=== PATIENT | female | born 1930 | race Caucasian/White ===

== ENCOUNTER 2018-02-26 13:36 | Inpatient (IN) | payer MEDICARE, OTHER ==
[2018-02-26] VITALS (24 sets, daily range): BP systolic 61–126; BP diastolic 43–67; PULSE 56–136; RESP 16–41; TEMP 97.5–98.7; O2SAT 96–99
[~2018-02-26] VITALS: Ht 160 cm; Wt 59.4 kg
[~2018-02-26 13:36] MED LIST: LOTR5CAP2 PO; ROSU5 PO
[2018-02-26] MEDS ORDERED: PANTOPRAZOLE INJ 80 MG in SODIUM CHLORIDE 0.9% INJ 35 ML IV ONE (14:24)
[2018-02-26] MEDS ORDERED: PANTOPRAZOLE INJ 80 MG in SODIUM CHLORIDE 0.9% INJ 100 ML IV SCH (14:24)
[2018-02-26] MEDS ORDERED: SODIUM CHLOR 0.9% 1000 ML INJ 1,000 ML IV SCH (14:24)
[2018-02-26] MEDS ORDERED: SODIUM CHLORIDE 0.9% FLUSH 10 ML FLUSH IVF PRN (14:30)
[2018-02-26] MEDS ORDERED: ONDANSETRON HCL 4 MG/2 ML VIAL IVP ONE (14:30)
[2018-02-26 14:36] LABS: AUTOMATED NEUTROPHIL # 7.2 TH/MM3 (1.8-7.7); BASOPHIL # 0.2 TH/MM3 (0-0.2); BASOPHIL % 2.1 % (0.0-2.0); EOSINOPHIL % 0.1 % (0.0-4.0); HEMATOCRIT 49.5 % (35.0-46.0); HEMOGLOBIN 16.4 GM/DL (11.6-15.3); LYMPH % 19.4 % (9.0-44.0); LYMPHOCYTE # 1.9 TH/MM3 (1.0-4.8); MEAN CELL VOLUME 90.7 FL (80.0-100.0); MEAN CORPUSCULAR HEMOGLOBIN 30.1 PG (27.0-34.0); MEAN CORPUSCULAR HGB CONC 33.2 % (32.0-36.0); MEAN PLATELET VOLUME 8.3 FL (7.0-11.0); MONO % 7.1 % (0.0-8.0); MONOCYTE # 0.7 TH/MM3 (0-0.9); NEUT % 71.3 % (16.0-70.0); PLATELET COUNT 343 TH/MM3 (150-450); RED BLOOD COUNT 5.46 MIL/MM3 (4.00-5.30); RED CELL DISTRIBUTION WIDTH 13.5 % (11.6-17.2)
[2018-02-26 14:45] LABS: CHLORIDE 100 MEQ/L (98-107); SODIUM (NA) 136 MEQ/L (136-145)
[2018-02-26 14:49] LABS: ALBUMIN 3.5 GM/DL (3.4-5.0); BICARBONATE 27.2 MEQ/L (21.0-32.0); BLOOD UREA NITROGEN 32 MG/DL (7-18); GLUCOSE,RANDOM 163 MG/DL (74-106)
[2018-02-26 14:50] LABS: INTERNATIONAL NORMALIZED RATIO 1.1 RATIO; PROTHROMBIN TIME - PATIENT 10.7 SEC (9.8-11.6)
[2018-02-26 14:51] LABS: ALT (GPT) 29 U/L (10-53)
[2018-02-26 14:52] LABS: AST (GOT) 25 U/L (15-37); GLOMERULAR FILTRATION RATE 36 ML/MIN (>89)
[2018-02-26 14:53] LABS: TOTAL BILIRUBIN ADULT 0.5 MG/DL (0.2-1.0)
[2018-02-26 14:54] LABS: ALKALINE PHOSPHATASE 86 U/L (45-117)
--- NOTE | 2018-02-26 15:34 | RADRPT ---
EXAM DATE/TIME: 02/26/2018 14:55 [facility] COMPARISON: No previous studies available for comparison. INDICATIONS : Syncopal episode today MEDICAL HISTORY : None. SURGICAL HISTORY : None. ENCOUNTER: Initial ACUITY: 1 day PAIN SCORE: 0/10 LOCATION: Bilateral chest FINDINGS: A single view of the chest demonstrates the lungs to be symmetrically aerated without evidence of mas s, infiltrate or effusion. Minimal basilar atelectasis. Mild cardiomegaly. CONCLUSION: 1. Mild cardiomegaly. Taras Solorzano MD on February 26, 2018 at 15:30 Board Certified Radiologist. This report was verified electronically.
[2018-02-26] MEDS ORDERED: cefTRIAXone INJ 1,000 MG in SODIUM CHLORIDE 0.9% INJ 100 ML IV ONE (16:00)
[2018-02-26] MEDS ORDERED: SODIUM CHLOR 0.9% 250 ML INJ 250 ML IV ONE (16:00)
[2018-02-26] MEDS ORDERED: VALS320T4 PO (16:02)
--- NOTE | 2018-02-26 16:23 | PD ---
HPI Chief Complaint: Syncope/Near-Syncope Time Seen by Provider: 14:24 Travel History International Travel<30 days: No Contact w/Intl Traveler<30days: No Traveled to known affect area: No History of Present Illness HPI 87-year-old female arrives to the ER via EMS. She was in a restaurant and lost consciousness for about 1 minute. The patient recalls a loss of consciousness and waking up from it. No chest pain or shortness of breath. The patient evidently had a bowel movement with black stool in the waiting room the ER. She has otherwise been in her normal state of good health. She has no abdominal pain. No vomiting. The onset of the syncope was sudden. No known history of GI bleed. No use of anticoagulants. PFSH Past Medical History Cancer: Yes (OVARIAN) High Cholesterol: Yes Chemotherapy: Yes Dementia: Yes Past Surgical History Abdominal Surgery: Yes (EXP LAP X 2) Appendectomy: Yes Eye Surgery: Yes (BILATERAL CATARACT SURGERY) Gynecologic Surgery: Yes Hysterectomy: Yes Joint Replacement: Yes (RIGHT ROTATOR CUFF REPAIR) Tonsillectomy: Yes Other Surgery: Yes (COLON RESECTION) Social History Alcohol Use: No Tobacco Use: No (QUIT) Substance Use: No Allergies-Medications (Allergen,Severity, Reaction): Coded Allergies: codeine (Unverified Allergy, Mild, 02/26/18) Reported Meds & Prescriptions Reported Meds & Active Scripts Active Reported Valsartan-Hydrochlorothiazide 320-12.5 Mg Tab 1 Tab PO DAILY Review of Systems Except as stated in HPI: all other systems reviewed are Neg General / Constitutional: No: Fever Gastrointestinal: Positive: Nausea, Vomiting, Abdominal Pain Physical Exam Narrative GENERAL: 87-year-old female pleasant well-nourished well-developed Vital Signs Date Time Temp Pulse Resp B/P (MAP) Pulse Ox O2 Delivery O2 Flow Rate FiO2 02/26/18 14:44 16 96 Room Air 02/26/18 14:30 97.5 92 16 67/50 (56) 96 02/26/18 14:15 16 96 Room Air rectal: black stool present. no BRB. guaiac positive. SKIN: Warm and dry. HEAD: Atraumatic. Normocephalic. EYES: Pupils equal and round. No scleral icterus. No injection or drainage. ENT: No nasal bleeding or discharge. Mucous membranes pink and moist. NECK: Trachea midline. No JVD. CARDIOVASCULAR: Irregular. Rate variable from 60s to 120s. RESPIRATORY: No accessory muscle use. Clear to auscultation. Breath sounds equal bilaterally. GASTROINTESTINAL: Abdomen soft, non-tender, nondistended. Hepatic and splenic margins not palpable. MUSCULOSKELETAL: Extremities without clubbing, cyanosis, or edema. No obvious deformities. NEUROLOGICAL: Awake and alert. No obvious cranial nerve deficits. Motor grossly within normal limits. Five out of 5 muscle strength in the arms and legs. Normal speech. PSYCHIATRIC: Appropriate mood and affect; insight and judgment normal. Data Data Last Documented VS Vital Signs Date Time Temp Pulse Resp B/P (MAP) Pulse Ox O2 Delivery O2 Flow Rate FiO2 02/26/18 17:20 98.0 61 16 92/53 96 02/26/18 17:00 21 02/26/18 16:35 Room Air Orders Orders Complete Blood Count With Diff (02/26/18 14:24) Comprehensive Metabolic Panel (02/26/18 14:24) Lipase (02/26/18 14:24) Prothrombin Time / Inr (Pt) (02/26/18 14:24) Act Partial Throm Time (Ptt) (02/26/18 14:24) Urinalysis - C+S If Indicated (02/26/18 14:24) Type And Screen (02/26/18 14:24) Ecg Monitoring (02/26/18 14:24) Iv Access Insert/Monitor (02/26/18 14:24) Oximetry (02/26/18 14:24) Ondansetron Inj (Zofran Inj) (02/26/18 14:30) Sodium Chlor 0.9% 1000 Ml Inj (Ns 1000 M (02/26/18 14:24) Sodium Chloride 0.9% Flush (Ns Flush) (02/26/18 14:30) Sodium Chloride 0.9... W/Pantoprazole In (02/26/18 14:24) Sodium Chloride 0.9... W/Pantoprazole In (02/26/18 14:24) Chest, Single Ap (02/26/18 ) Troponin I (02/26/18 14:52) Electrocardiogram (02/26/18 14:18) Blood Product Administration (02/26/18 15:48) Sodium Chlor 0.9% 250 Ml Inj (Ns 250 Ml (02/26/18 16:00) Ceftriaxone Inj (Rocephin Inj) (02/26/18 16:00) Ct Abd/Pel W/O Iv Contrast (02/26/18 15:49) Ventilation & Perfusion Scan (02/26/18 ) Red Blood Cells (Rbc) (02/26/18 14:20) Admit Order (Ed Use Only) (02/26/18 ) Farm Assistant / Telemetry [id number].[id number] (02/26/18 17:44) Vital Signs (Adult) Q4H (02/26/18 17:44) Diet Npo (02/26/18 Dinner) Activity Bed Rest (02/26/18 17:44) Notify Dr: Other (02/26/18 17:44) Magnesium (Mg) (02/26/18 14:20) Phosphorus (Po4) (02/26/18 14:20) Thyroid Stimulating Hormone (02/26/18 14:20) Labs Laboratory Tests Test 02/26/18 14:20 White Blood Count 10.0 TH/MM3 Red Blood Count 5.46 MIL/MM3 Hemoglobin 16.4 GM/DL Hematocrit 49.5 % Mean Corpuscular Volume 90.7 FL Mean Corpuscular Hemoglobin 30.1 PG Mean Corpuscular Hemoglobin Concent 33.2 % Red Cell Distribution Width 13.5 % Platelet Count 343 TH/MM3 Mean Platelet Volume 8.3 FL Neutrophils (%) (Auto) 71.3 % Lymphocytes (%) (Auto) 19.4 % Monocytes (%) (Auto) 7.1 % Eosinophils (%) (Auto) 0.1 % Basophils (%) (Auto) 2.1 % Neutrophils # (Auto) 7.2 TH/MM3 Lymphocytes # (Auto) 1.9 TH/MM3 Monocytes # (Auto) 0.7 TH/MM3 Eosinophils # (Auto) 0.0 TH/MM3 Basophils # (Auto) 0.2 TH/MM3 CBC Comment DIFF FINAL Differential Comment Prothrombin Time 10.7 SEC Prothromb Time International Ratio 1.1 RATIO Activated Partial Thromboplast Time 24.7 SEC Blood Urea Nitrogen 32 MG/DL Creatinine 1.40 MG/DL Random Glucose 163 MG/DL Total Protein 7.0 GM/DL Albumin 3.5 GM/DL Calcium Level 9.0 MG/DL Phosphorus Level 4.3 MG/DL Magnesium Level 2.3 MG/DL Alkaline Phosphatase 86 U/L Aspartate Amino Transf (AST/SGOT) 25 U/L Alanine Aminotransferase (ALT/SGPT) 29 U/L Total Bilirubin 0.5 MG/DL Sodium Level 136 MEQ/L Potassium Level 3.1 MEQ/L Chloride Level 100 MEQ/L Carbon Dioxide Level 27.2 MEQ/L Anion Gap 9 MEQ/L Estimat Glomerular Filtration Rate 36 ML/MIN Troponin I 0.07 NG/ML Lipase 405 U/L Thyroid Stimulating Hormone 3rd Gen 2.830 uIU/ML MDM Medical Decision Making Medical Screen Exam Complete: Yes Emergency Medical Condition: Yes Medical Record Reviewed: Yes Differential Diagnosis Arrhythmia, pneumothorax, anemia, GI bleed Narrative Course CBC & BMP Diagram 02/26/18 14:20 Total Protein 7.0, Albumin 3.5, Calcium Level 9.0, Alkaline Phosphatase 86, Aspartate Amino Transf (AST/SGOT) 25, Alanine Aminotransferase (ALT/SGPT) 29, Total Bilirubin 0.5 Troponin 0.07 Lipase 405 INR 1.1 EKG shows A. fib with RVR and a rate in the 130s Last Impressions Chest X-Ray 02/26/18 0000 Signed Impressions: Service Date/Time: Monday, February 26, 2018 14:55 - CONCLUSION: 1. Mild cardiomegaly. Taras Solorzano MD Patient has received a liter of saline. 2 units PRBCs ordered. The stool is guaiac positive. Concern for syncope due to GI bleed/volume loss. VQ scan ordered because the GFR is 30. The patient although hemodynamically unstable has clinically appeared well with warm dry skin and normal mentation and answering questions in detail. At 5:09 PM approximately 2 hours and 40 minutes following arrival the patient has remained clinically stable. The blood pressure is 95/47. Pt will be admitted to the ICU here in PO. D/w Dr Irving d/w Dr Richter GI intervention likely for AM Last Impressions Abdomen/Pelvis CT 02/26/18 1549 Signed Impressions: Service Date/Time: Monday, February 26, 2018 16:00 - CONCLUSION: 1. Mildly dilated loops of distal small bowel. There is air in the colon. Cannot exclude a partial small bowel obstruction. No acute bony abnormalities. 2. Small pericardial effusion. Taras Solorzano MD Lung Scan-VQ Nuclear Medicine 02/26/18 0000 Signed Impressions: Service Date/Time: Monday, February 26, 2018 17:23 - CONCLUSION: Low probability for pulmonary embolus. Jamie Chopra MD Head CT 02/26/18 0000 Signed Impressions: Service Date/Time: Monday, February 26, 2018 18:57 - CONCLUSION: No acute disease. Jamie Chopra MD Chest X-Ray 02/26/18 0000 Signed Impressions: Service Date/Time: Monday, February 26, 2018 14:55 - CONCLUSION: 1. Mild cardiomegaly. Taras Solorzano MD Bowel obstruction considered unlikely Critical Care Narrative Aggregate critical care time was 35 minutes. Time to perform other separately billable procedures was not included in the critical care time. My time did not include minutes spent treating any other patients simultaneously or on activities that did not directly contribute to the patient's treatment. The services I provided to this patient were to treat and/or prevent clinically significant deterioration that could result in: Cardiopulmonary arrest, hypovolemic shock I provided critical care services requiring my management, as noted below: Chart data review, documentation time, medication orders and management, vital sign assessments/reviewing monitor data, ordering and reviewing lab tests, ordering and interpreting/reviewing x-rays and diagnostic studies, care of the patient and discussion of the patient with the admitting physicians. 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
--- NOTE | 2018-02-26 16:37 | RADRPT ---
EXAM DATE/TIME: 02/26/2018 16:00 [facility] COMPARISON: No previous studies available for comparison. INDICATIONS : Abdominal pain. ORAL CONTRAST: No oral contrast ingested. RADIATION DOSE: 6.26 CTDIvol (mGy) MEDICAL HISTORY : Dementia. Hypercholesterolemia. Carcinoma, ovarian.Chemo SURGICAL HISTORY : Hysterectomy. Tonsillectomy.Bowel resection, exp lap, ortho ENCOUNTER: Initial ACUITY: 1 day PAIN SCALE: 5/10 LOCATION: diffuse TECHNIQUE: Volumetric scanning of the abdomen and pelvis was performed. Using automated exposure control and ad justment of the mA and/or kV according to patient size, radiation dose was kept as low as reasonably achievable to obtain optimal diagnostic quality images. DICOM format image data is available electro nically for review and comparison. FINDINGS: Lung bases are clear except for minimal dependent atelectasis. Small pericardial effusion. No acute findings in the liver, spleen, adrenals or pancreas. The liver m easures about 20 cm in length. Previous cholecystectomy. There is a 7.5 cm cyst upper pole left kidne y. Right kidney unremarkable. Numerous surgical clips in the lower abdomen and pelvis with mildly dilated loops of small bowel dist ally. No free air or free fluid. Small hiatal hernia. Moderate to advanced degenerative change of the spine. CONCLUSION: 1. Mildly dilated loops of distal small bowel. There is air in the colon. Cannot exclude a partial sm all bowel obstruction. No acute bony abnormalities. 2. Small pericardial effusion. Taras Solorzano MD on February 26, 2018 at 16:23 Board Certified Radiologist. This report was verified electronically.
--- NOTE | 2018-02-26 17:52 | HHI.HP ---
[facility] Service Critical Care Medicine Primary Care Physician Murray Okeefe M.D. Admission Diagnosis Syncope; GI Bleed; Pancreatitis; AFib RVR; Elevated Trop; HypoK Diagnosis: (1) Hypotension Diagnosis: Principal (2) GI bleed Diagnosis: Principal (3) Elevated troponin Diagnosis: Principal (4) Partial small bowel obstruction Diagnosis: Principal (5) Syncope Diagnosis: Principal (6) Atrial fibrillation Diagnosis: Principal (7) Acute renal failure superimposed on stage 2 chronic kidney disease Diagnosis: Principal Chief Complaint: Syncope Travel History International Travel<30 Days: No Contact w/Intl Traveler <30 Da: No Traveled to Known Affected Are: No Sepsis Criteria SIRS Criteria (2 or more): Heart rate over 90 History of Present Illness 87-year-old female with known history of hypertension, hyperlipidemia , diabetes who was brought to the hospital because of a syncopal episode. Patient was in a normal state of health when she was out to lunch with her family. They just walked into the restaurant and ordered her dinner they sat down and was sitting at the table for approximately 30 minutes and her daughter- in-law noticed that she was falling forward into the right. She caught her and Her from falling forward completely she did not hit her head or fall to the ground. She looked at her and noticed that her eyes rolled in the back of her head. Patient was lowered to the ground and that is when her son came out of the restroom and noticed his mother unconscious on the ground. There was no tonic-clonic movements, no extremity shaking. No loss of bladder control, however did have complete loss of bowel. They indicate that the patient lost consciousness for approximately 1 minute and when she was awake she became more alert. There is no significant episode of confusion. EMS was called and on initial presentation her blood pressure was 152/108. The patient did not want to be transferred here by ambulance so the family brought her to the emergency department. When the patient came into the emergency department she had significant tachycardia with a heart rate in 140s with atrial fibrillation RVR with low blood pressure 92/53. Patient was found to have been soiled with stool that was black in color which immediately turned positive Hemoccult. It was suspected that the patient may be in hypovolemic shock from acute GI bleed. Nursing staff and ER physician indicated that patient had the look and smell of acute GI bleed. Stat blood was released and patient was transfused 1 unit of packed red blood cells. Patient was started on immediate IV fluid bolus with initial improvement of her blood pressure, however when the fluid was complete her blood pressure dropped again. Blood pressure is doing much better at this time after infusion of packed red blood cell. Further workup indicated multiple other etiologies with CT scan showing partial small bowel obstruction, equivocal troponin elevation, acute renal failure superimposed on chronic kidney disease stage II, elevated lipase level. Due to patient's clinical condition with possible acute hypovolemic shock secondary to GI bleed patient will be admitted to critical care to the ICU for closer monitoring. Review of Systems Constitutional: DENIES: Diaphoretic episodes, Fatigue, Fever, Chills, Dizziness Eyes: DENIES: Blurred vision, Diplopia, Eye inflammation, Eye pain, Vision loss , Double Vision Ears, nose, mouth, throat: DENIES: Tinnitus, Hearing loss, Vertigo, Nasal discharge, Oral lesions, Throat pain, Hoarseness, Ear Pain, Running Nose, Sinus Pain Respiratory: DENIES: Apneas, Cough, Snoring, Wheezing, Hemoptysis, Sputum production, Shortness of breath Cardiovascular: COMPLAINS OF: Syncope, DENIES: Chest pain, Palpitations, Dyspnea on Exertion, Lower Extremity Edema, Orthopnea Gastrointestinal: DENIES: Abdominal pain, Black stools, Bloody stools, Constipation, Diarrhea, Nausea, Vomiting, Difficulty Swallowing, Anorexia Psychiatric: DENIES: Anxiety, Confusion, Mood changes, Depression Past Family Social History Allergies: Coded Allergies: codeine (Unverified Allergy, Mild, 02/26/18) Past Medical History Hypertension Hyperlipidemia History of ovarian cancer status post surgery and chemotherapy Chronic kidney disease stage II Dementia Past Surgical History Hysterectomy Cataract surgery Bladder sling surgery Surgery for lacerated bowel Reported Medications Reported Meds & Active Scripts Active Reported Valsartan-Hydrochlorothiazide 320-12.5 Mg Tab 1 Tab PO DAILY Family History Reviewed and significant for mother at 88 from heart disease, congestive heart failure, father was at age 76 with history of heart disease and stroke Social History Patient quit smoking 20 years ago, prior to that she smoked 2 pack of cigarettes daily. Drinks alcohol rarely Physical Exam Vital Signs Vital Signs Date Time Temp Pulse Resp B/P (MAP) Pulse Ox O2 Delivery O2 Flow Rate FiO2 02/26/18 17:20 98.0 61 16 92/53 96 02/26/18 17:05 98.7 61 16 94/47 97 02/26/18 16:50 97.9 94 16 105/53 97 02/26/18 16:35 62 16 98/55 (69) 97 Room Air 02/26/18 15:50 112 16 104/53 (70) 96 Room Air 02/26/18 15:46 88 16 61/43 (49) 97 Room Air 02/26/18 15:40 88 16 76/52 (60) 97 Room Air 02/26/18 15:25 100 16 104/55 (71) 99 Room Air 02/26/18 15:10 98 16 101/55 (70) 98 Room Air 02/26/18 14:55 128 16 111/56 (74) 98 02/26/18 14:44 16 96 Room Air 02/26/18 14:40 136 16 108/54 (72) 97 Room Air 02/26/18 14:35 135 16 80/56 (64) 98 Room Air 02/26/18 14:30 97.5 92 16 67/50 (56) 96 02/26/18 14:15 16 96 Room Air Physical Exam GENERAL: Well-developed, frail and cachectic, in no acute distress. alert and orientated. Patient appears to be pale HEENT: Head is normocephalic without any lesions or masses noted. Facial features are symmetric. Eyes: Pupils equal round reactive to light. Extraocular muscles are intact. Conjunctivae is pale. Oropharyngeal: Pharynx without any erythema edema. Tongue is midline without deviation. Buccal mucosa is moist without any masses or lesions NECK: Supple without any masses. Trachea midline no deviation. No JVD, no bruits are appreciated CARDIAC: Regular rhythm, regular rate. S1/S2 are heard. No murmurs gallops or rubs. LUNGS: Clear to auscultation bilaterally. No wheeze, rhonchi or rales. No use of accessory muscles on inspiration or expiration. ABDOMEN: Soft, nontender. Nondistended. Bowel sounds heard in all 4 quadrants. No organomegaly or masses. Negative rebound, negative guarding EXTREMITIES: No edema, pulses are equal bilaterally. No cyanosis or clubbing. Geographical franco of the hand are diminished. Patient has decreased capillary refill NEUROLOGY: Mood and affect appear appropriate. Cranial nerves II through XII grossly intact. Muscle strength 5/5 in upper and lower extremities bilaterally. Deep tendon reflexes are 2+ in upper and lower extremities bilaterally. Laboratory Laboratory Tests Test 02/26/18 14:20 White Blood Count 10.0 Red Blood Count 5.46 Hemoglobin 16.4 Hematocrit 49.5 Mean Corpuscular Volume 90.7 Mean Corpuscular Hemoglobin 30.1 Mean Corpuscular Hemoglobin Concent 33.2 Red Cell Distribution Width 13.5 Platelet Count 343 Mean Platelet Volume 8.3 Neutrophils (%) (Auto) 71.3 Lymphocytes (%) (Auto) 19.4 Monocytes (%) (Auto) 7.1 Eosinophils (%) (Auto) 0.1 Basophils (%) (Auto) 2.1 Neutrophils # (Auto) 7.2 Lymphocytes # (Auto) 1.9 Monocytes # (Auto) 0.7 Eosinophils # (Auto) 0.0 Basophils # (Auto) 0.2 CBC Comment DIFF FINAL Differential Comment Prothrombin Time 10.7 Prothromb Time International Ratio 1.1 Activated Partial Thromboplast Time 24.7 Blood Urea Nitrogen 32 Creatinine 1.40 Random Glucose 163 Total Protein 7.0 Albumin 3.5 Calcium Level 9.0 Alkaline Phosphatase 86 Aspartate Amino Transf (AST/SGOT) 25 Alanine Aminotransferase (ALT/SGPT) 29 Total Bilirubin 0.5 Sodium Level 136 Potassium Level 3.1 Chloride Level 100 Carbon Dioxide Level 27.2 Anion Gap 9 Estimat Glomerular Filtration Rate 36 Troponin I 0.07 Lipase 405 Result Diagram: 02/26/18 1420 02/26/18 1420 Imaging Last Impressions Abdomen/Pelvis CT 02/26/18 1549 Signed Impressions: Service Date/Time: Monday, February 26, 2018 16:00 - CONCLUSION: 1. Mildly dilated loops of distal small bowel. There is air in the colon. Cannot exclude a partial small bowel obstruction. No acute bony abnormalities. 2. Small pericardial effusion. Taras Solorzano MD Chest X-Ray 02/26/18 0000 Signed Impressions: Service Date/Time: Monday, February 26, 2018 14:55 - CONCLUSION: 1. Mild cardiomegaly. Taras Solorzano MD Septic Shock Reassessment Septic shock perfusion: reassessment completed Caprini VTE Risk Assessment Caprini VTE Risk Assessment: Mod/High Risk (score >= 2) Caprini Risk Assessment Model Point Value = 1 Point Value = 2 Point Value = 3 Point Value = 5 Age 41-60 Minor surgery BMI > 25 kg/m2 Swollen legs Varicose veins or History of unexplained or recurrent spontaneous Oral contraceptives or hormone replacement Sepsis (< 1 month) Serious lung disease, including pneumonia (< 1 month) Abnormal pulmonary function Acute myocardial infarction Congestive heart failure (< 1 month) History of inflammatory bowel disease Medical patient at bed rest Age 61-74 Arthroscopic surgery Major open surgery (> 45 min) Laparoscopic surgery (> 45 min) Malignancy Confined to bed (> 72 hours) Immobilizing plaster cast Central venous access Age >= 75 History of VTE Family history of VTE Factor V Leiden Prothrombin [id number] Lupus anticoagulant Anticardiolipin antibodies Elevated serum homocysteine Heparin-induced thrombocytopenia Other congenital or acquired thrombophilia Stroke (< 1 month) Elective arthroplasty Hip, pelvis, or leg fracture Acute spinal cord injury (< 1 month) Prophylaxis Regimen Total Risk Factor Score Risk Level Prophylaxis Regimen 0-1 Low Early ambulation 2 Moderate Order ONE of the following: *Sequential Compression Device (SCD) *Heparin 5000 units SQ BID 3-4 Higher Order ONE of the following medications: *Heparin 5000 units SQ TID *Enoxaparin/Lovenox 40 mg SQ daily (WT < 150 kg, CrCl > 30 mL/min) *Enoxaparin/Lovenox 30 mg SQ daily (WT < 150 kg, CrCl > 10-29 mL/min) *Enoxaparin/Lovenox 30 mg SQ BID (WT < 150 kg, CrCl > 30 mL/min) AND/OR *Sequential Compression Device (SCD) 5 or more Highest Order ONE of the following medications: *Heparin 5000 units SQ TID (Preferred with Epidurals) *Enoxaparin/Lovenox 40 mg SQ daily (WT < 150 kg, CrCl > 30 mL/min) *Enoxaparin/Lovenox 30 mg SQ daily (WT < 150 kg, CrCl > 10-29 mL/min) *Enoxaparin/Lovenox 30 mg SQ BID (WT < 150 kg, CrCl > 30 mL/min) AND *Sequential Compression Device (SCD) Assessment and Plan Problem List: (1) Hypotension ICD Code: I95.9 - Hypotension, unspecified Status: Acute (2) GI bleed ICD Code: K92.2 - Gastrointestinal hemorrhage, unspecified Status: Acute (3) Elevated troponin ICD Code: R74.8 - Abnormal levels of other serum enzymes (4) Atrial fibrillation ICD Code: I48.91 - Unspecified atrial fibrillation Status: Acute (5) Syncope ICD Code: R55 - Syncope and collapse Status: Acute (6) Partial small bowel obstruction ICD Code: K56.600 - Partial intestinal obstruction, unspecified as to cause (7) Acute renal failure superimposed on stage 2 chronic kidney disease ICD Code: N17.9 - Acute kidney failure, unspecified; N18.2 - Chronic kidney disease, stage 2 (mild) Assessment and Plan NEUROLOGY Syncope Dementia Continue monitor neurological function Obtain CT scan of the brain to rule out any acute abnormality Obtain carotid ultrasound CARDIOLOGY Hypotension Elevated troponin New onset atrial fibrillation with RVR Hypertension Hyperlipidemia Status post 1 L IV fluid bolus Continue monitor blood pressure keep map greater than 65 Continue to trend cardiac enzymes to rule out acute coronary event Unable to use aspirin secondary to acute GI bleed, unable to use beta angel, Cardizem secondary to hypotension CHADS/VASC 2, however unable to fully anticoagulate secondary to acute GI bleed Obtain echocardiogram PULMONOLOGY History of tobacco use VQ scan was performed which indicated low probability for pulmonary emboli O2 sat mentation maintain O2 sats greater than 92% Duo nebs as needed GASTROENTEROLOGY Acute melanic GI bleed Continue to monitor hemoglobin and hematocrit every 6 hours Status post transfusion 1 unit of packed red blood cells Start Protonix drip Consult GI, will contact GI to inform them of patient The patient will remain n.p.o. for possible urgent endoscopy, if not will anticipate EGD tomorrow morning RENAL Acute renal failure superimposed on chronic kidney disease stage II Could be secondary to GI bleed, mild dehydration, Continue IV fluid Monitor renal function Replete electrolytes as needed INFECTIOUS DISEASE No active signs of infection at this time Patient has been given Rocephin 1 g IV 1 We will check blood cultures, await urinalysis We will hold off on any antibiotics until infectious source can be found HEMATOLOGY Continue monitor hemoglobin hematocrit, transfuse if hemoglobin below 8.0 ENDOCRINOLOGY Monitor glucoses start Accu-Cheks if needed Check TSH PROPHYLAXIS GI protection with Protonix IV DVT prevention with sequential compression devices, avoid chemical prophylaxis secondary to acute GI bleed LINES Peripheral IVs CODE STATUS Full code Critical care time 75 minutes excluding procedures Problem Qualifiers (1) Hypotension: Qualified Codes: I95.9 - Hypotension, unspecified (2) GI bleed: Qualified Codes: K92.2 - Gastrointestinal hemorrhage, unspecified (3) Syncope: Qualified Codes: R55 - Syncope and collapse (4) Atrial fibrillation: Qualified Codes: I48.91 - Unspecified atrial fibrillation Eliel Tyson Feb 26, 2018 17:52
--- NOTE | 2018-02-26 17:54 | RADRPT ---
EXAM DATE/TIME: 02/26/2018 17:23 [facility] COMPARISON: No previous studies available for comparison. INDICATIONS : Rule out PE. Dyspnea. DOSE: 8.2 mCi Tc99m MAA IV 1.0 mCi Tc99m DTPA aerosol MEDICAL HISTORY : Hypercholesterolemia. Dementia. SURGICAL HISTORY : Hysterectomy. Tonsillectomy. Appendectomy. Colon resection. ENCOUNTER: Initial ACUITY: 1 day PAIN SCALE: 3/10 LOCATION: chest TECHNIQUE: Following five minutes of tidal breathing of DTPA aerosol, planar images of the lungs were performed in eight projections. The patient was then injected with MAA, and eight-view perfusion scan was perf ormed. FINDINGS: There is a homogeneous pattern of aerosol delivery to the periphery of both lungs. No focal ventilat ory defects are seen. The perfusion lung scan demonstrates a homogenous pattern of uptake in both lungs. No segmental or s ubsegmental defects are seen. CONCLUSION: Low probability for pulmonary embolus. Jamie Chopra MD on February 26, 2018 at 17:51 Board Certified Radiologist. This report was verified electronically.
[2018-02-26] MEDS ORDERED: MAGNESIUM HYDROXIDE SUSP 30 ML CUP PO PRN (18:00)
[2018-02-26] MEDS ORDERED: MISCELLANEOUS NURSING INFORMATION XX SCH (18:00)
[2018-02-26] MEDS ORDERED: SODIUM CHLORIDE 0.9% FLUSH 10 ML FLUSH IV FLUSH PRN (18:00)
[2018-02-26] MEDS ORDERED: LACTULOSE SYRUP 20 GM/30 ML CUP PO PRN (18:00)
[2018-02-26] MEDS ORDERED: CHLORHEXIDINE GLUCONATE 2 % 1 PACK (2 CLOTHS) TOP PRN (18:00)
[2018-02-26] MEDS ORDERED: SENNOSIDES 8.6 MG TAB PO PRN (18:00)
[2018-02-26] MEDS ORDERED: ACETAMINOPHEN 325 MG TAB PO PRN (18:00)
[2018-02-26] MEDS ORDERED: BISACODYL 10 MG SUPP RECTAL PRN (18:00)
[2018-02-26 18:44] LABS: MAGNESIUM 2.3 MG/DL (1.5-2.5)
[2018-02-26] MEDS ORDERED: RESP: ALBUTEROL 2.5 MG/IPRATROPIUM 0.5 MG NEB (PRN) NEB (18:45)
[2018-02-26 18:48] LABS: PHOSPHORUS 4.3 MG/DL (2.5-4.9)
[2018-02-26] MEDS ORDERED: DEXTROSE 50% IN WATER 50 ML VIAL(D50) IV PUSH PRN (19:00)
[2018-02-26] MEDS ORDERED: GLUCAGON 1 MG/ML VIAL OTHER PRN (19:00)
--- NOTE | 2018-02-26 19:14 | RADRPT ---
EXAM DATE/TIME: 02/26/2018 18:57 [facility] COMPARISON: No previous studies available for comparison. INDICATIONS : Syncope RADIATION DOSE: 57 CTDIvol (mGy) MEDICAL HISTORY : Hypertension. Dementia. SURGICAL HISTORY : Hysterectomy. ENCOUNTER: Initial ACUITY: 1 day PAIN SCALE: 0/10 LOCATION: cranial TECHNIQUE: Multiple contiguous axial images were obtained of the head. Using automated exposure control and adj ustment of the mA and/or kV according to patient size, radiation dose was kept as low as reasonably a chievable to obtain optimal diagnostic quality images. DICOM format image data is available electro nically for review and comparison. FINDINGS: There is atrophy and moderate hypodensity in the bilateral centrum semiovale and periventricular whit e matter characteristic of chronic microvascular ischemic disease. Atherosclerotic calcifications of the carotid arteries are noted. No fractures. No hemorrhage or mass. No signs of acute infarct. CONCLUSION: No acute disease. Jamie Chopra MD on February 26, 2018 at 19:12 Board Certified Radiologist. This report was verified electronically.
--- NOTE | 2018-02-26 19:28 | HHI.PR ---
Subjective Remarks I have seen and evaluated the patient and have reviewed Mr. Tyson's note and agree with the plan. In brief, 87yF with long prior history of ovarian cancer s/p resection. + syncope and significant melena with initial hemodynamic instability and afib RVR. now resuscitated with multiple liters of IVF as well as 1 unit prbc. converted back to NSR and has been stable x 3 hours in the emergency department without any additional hemodynamic instability or additional melena. on exam she is pale, but not in distress. HR 55 NSR/SB. good cap refill. 2+ distal pulses. warm and well-perfused. There are 2 units prbc on hold at the [facility] should she need additional blood products. she will remain on protonix drip and NPO for EGD in AM per GI. will plan to admit to ICU for serial hemoglobins and close monitoring. lactate normal. Objective Vital Signs Date Time Temp Pulse Resp B/P (MAP) Pulse Ox O2 Delivery O2 Flow Rate FiO2 02/26/18 19:21 78 16 113/59 (77) 96 Room Air 02/26/18 18:33 98.4 61 16 108/55 98 02/26/18 18:13 62 16 110/55 (73) 98 Room Air 02/26/18 17:55 97.9 61 16 104/58 97 02/26/18 17:20 98.0 61 16 92/53 96 02/26/18 17:05 98.7 61 16 94/47 97 02/26/18 17:00 97 21 02/26/18 16:50 97.9 94 16 105/53 97 02/26/18 16:35 62 16 98/55 (69) 97 Room Air 02/26/18 15:50 112 16 104/53 (70) 96 Room Air 02/26/18 15:46 88 16 61/43 (49) 97 Room Air 02/26/18 15:40 88 16 76/52 (60) 97 Room Air 02/26/18 15:25 100 16 104/55 (71) 99 Room Air 02/26/18 15:10 98 16 101/55 (70) 98 Room Air 02/26/18 14:55 128 16 111/56 (74) 98 02/26/18 14:44 16 96 Room Air 02/26/18 14:40 136 16 108/54 (72) 97 Room Air 02/26/18 14:35 135 16 80/56 (64) 98 Room Air 02/26/18 14:30 97.5 92 16 67/50 (56) 96 02/26/18 14:15 16 96 Room Air I/O 02/25/18 02/25/18 02/25/18 02/26/18 02/26/18 02/26/18 07:00 15:00 23:00 07:00 15:00 23:00 Intake Total 1935 ml Balance 1935 ml Intake IV Total 1035 ml Packed Cells 400 ml Blood Product IV Normal Saline Flush 500 ml Result Diagram: 02/26/18 1420 02/26/18 1420 Abhilash Richter MD Feb 26, 2018 19:28
[2018-02-26 19:29] LABS: HEMATOCRIT 44.6 % (35.0-46.0)
--- NOTE | 2018-02-26 20:13 | RADRPT ---
EXAM DATE/TIME: 02/26/2018 19:30 [facility] COMPARISON: No previous studies available for comparison. INDICATIONS : Syncope. MEDICAL HISTORY : Hypercholesterolemia. Dementia. Ovarian cancer. Chemotherapy. SURGICAL HISTORY : Tonsillectomy. Hysterectomy. Appendectomy. Right rotator cuff repair. Colon resection. ENCOUNTER: Initial ACUITY: 1 day PAIN SCORE: 0/10 LOCATION: Bilateral neck PEAK SYSTOLIC VELOCITIES (cm/sec): ICA/CCA RATIO: Right: 1.4 Left: 1.3 ICA: Right: 85 Left: 75 CCA: Right: 61 Left: 56 ECA: Right: 51 Left: 74 VERTEBRAL: Right: 50 antegrade Left: 52 antegrade Elevated flow velocities and ICA/CCA ratios have been found to correlate with increased degrees of vessel stenosis, calculated as percentage of diameter relative to a normal segment of distal ICA/CCA FINDINGS: RIGHT CAROTID: No significant stenosis is visualized. The waveforms are within normal limits. LEFT CAROTID: No significant stenosis is visualized. The waveforms are within normal limits. VERTEBRAL ARTERIES: Antegrade flow is seen in both vertebral arteries. MISCELLANEOUS: None. CONCLUSION: No evidence for hemodynamically significant stenosis. Jamie Chopra MD on February 26, 2018 at 20:11 Board Certified Radiologist. This report was verified electronically.
[2018-02-26] MEDS: NS + KCL 20 MEQ INJ 1,000 ML IV SCH (20:24)
[2018-02-26] MEDS: DOCUSATE SODIUM 50 MG/SENNA 8.6 MG TAB PO SCH (20:24)
[2018-02-26] MEDS: SODIUM CHLORIDE 0.9% FLUSH 10 ML FLUSH IV FLUSH SCH (20:24)
[2018-02-26 20:43] LABS: HEMATOCRIT 44.8 % (35.0-46.0)
[2018-02-26] MEDS: INSULIN ASPART SUPPLEMENTAL SCALE SQ SCH (20:46)
[2018-02-26 22:41] LABS: BILIRUBIN, URINE NEG (NEG); BLOOD, URINE TRACE (NEG); GLUCOSE,URINE NEG (NEG); KETONE, URINE NEG (NEG); NITRITE,URINE NEG (NEG); PH, URINE 5.5 (5.0-8.5); URINE COLOR YELLOW (YELLW/STRAW); URINE LEUKOCYTE ESTERASE NEG (NEG)
[2018-02-26 22:45] LABS: RBC, URINE 0-3 /hpf (0-3); SQUAMOUS EPITHELIAL CELL URINE 0-5 /hpf (0-5); WBC, URINE 0-2 /hpf (0-5)
[2018-02-26] MEDS: PANTOPRAZOLE INJ 80 MG in SODIUM CHLORIDE 0.9% INJ 100 ML IV SCH (22:59)
[2018-02-27] VITALS (23 sets, daily range): BP systolic 97–154; BP diastolic 48–76; PULSE 52–63; RESP 15–39; TEMP 97.5–98; O2SAT 92–100
[2018-02-27] MEDS: TEMAZEPAM 15 MG CAP PO PRN (00:18)
[2018-02-27] MEDS: NS + KCL 20 MEQ INJ 1,000 ML IV SCH ×3 (02:14→19:00)
[2018-02-27 02:35] LABS: AUTOMATED NEUTROPHIL # 5.1 TH/MM3 (1.8-7.7); BASOPHIL # 0.1 TH/MM3 (0-0.2); BASOPHIL % 1.1 % (0.0-2.0); EOSINOPHIL # 0.1 TH/MM3 (0-0.4); EOSINOPHIL % 0.7 % (0.0-4.0); HEMATOCRIT 41.2 % (35.0-46.0); HEMOGLOBIN 13.7 GM/DL (11.6-15.3); LYMPH % 19.1 % (9.0-44.0); LYMPHOCYTE # 1.4 TH/MM3 (1.0-4.8); MEAN CELL VOLUME 91.6 FL (80.0-100.0); MEAN CORPUSCULAR HEMOGLOBIN 30.4 PG (27.0-34.0); MEAN CORPUSCULAR HGB CONC 33.2 % (32.0-36.0); MEAN PLATELET VOLUME 8.5 FL (7.0-11.0); MONO % 9.1 % (0.0-8.0); MONOCYTE # 0.7 TH/MM3 (0-0.9); PLATELET COUNT 228 TH/MM3 (150-450); RED BLOOD COUNT 4.49 MIL/MM3 (4.00-5.30); RED CELL DISTRIBUTION WIDTH 13.8 % (11.6-17.2); WHITE BLOOD COUNT 7.4 TH/MM3 (4.0-11.0)
[2018-02-27 03:09] LABS: ALBUMIN 2.6 GM/DL (3.4-5.0); BICARBONATE 26.3 MEQ/L (21.0-32.0); CALCIUM 7.4 MG/DL (8.5-10.1); CALCIUM-PROTEIN CORRECTED 8.5 MG/DL (8.5-10.1); CREATININE 0.76 MG/DL (0.50-1.00); TOTAL BILIRUBIN ADULT 0.7 MG/DL (0.2-1.0); TOTAL PROTEIN 5.2 GM/DL (6.4-8.2)
[2018-02-27] MEDS ORDERED: CHLORHEXIDINE GLUCONATE 2 % 1 PACK (2 CLOTHS) TOP SCH (04:00)
[2018-02-27] MEDS: INSULIN ASPART SUPPLEMENTAL SCALE SQ SCH ×3 (08:00→19:33)
[2018-02-27 08:59] LABS: HEMATOCRIT 41.9 % (35.0-46.0); HEMOGLOBIN 13.5 GM/DL (11.6-15.3)
[2018-02-27] MEDS ORDERED: CHLORHEXIDINE GLUCONATE 2 % 1 PACK (2 CLOTHS)(extra cloths) TOPICAL PRN (09:00)
--- NOTE | 2018-02-27 10:07 | MB ---
cc: Lolita Tubbs MD DATE: 02/27/2018 REFERRING PHYSICIAN: Dr. Richter. HISTORY OF PRESENT ILLNESS: This is a pleasant 87-year-old lady who has multiple medical problems including diabetes, hypertension, hyperlipidemia. The patient was having dinner with her family when she started having syncopal episode and passed out. She was falling forward, so she was brought by her family. The patient was tachycardic and hypotensive and she was also in new onset atrial fibrillation with rapid ventricular response. The patient was found to have heme positive stool that was black and I was asked to see her because of the possible GI bleed. The patient is a poor historian. She does not remember anything except that she passed out. She denies any GI symptoms. She does not remember the last time she had a colonoscopy, but she thinks it was at least many years ago. She denies any sign of bleeding as far as bright red blood, no nausea, no vomiting, no abdominal pain, currently lying in bed comfortably. REVIEW OF SYSTEMS: All 12-point negative except being fatigue. PAST MEDICAL HISTORY: Significant for ovarian cancer, chronic kidney disease, dementia, hyperlipidemia, hypertension. PAST SURGICAL HISTORY: Significant for cataract surgery, hysterectomy, bladder surgery, perforated bowel. SOCIAL HISTORY: She used to smoke but quit about 20 years ago. Very rare alcohol, no drugs. FAMILY HISTORY: Significant for coronary artery disease and congestive heart failure and stroke. PHYSICAL EXAMINATION: GENERAL: Currently, alert, oriented, in no acute distress. VITAL SIGNS: Stable. HEENT: Pupils are round, reactive to light. NECK: Supple. CHEST: Clear to auscultation. HEART: Heart rate atrial fibrillation. Irregular, but the heart rate is 55 at this time. ABDOMEN: Soft, nondistended, nontender. Positive bowel sounds. No hepatosplenomegaly. EXTREMITIES: No edema, clubbing or cyanosis. NEUROLOGIC: Intact with no focal abnormalities. PSYCHE: Psychologically appropriate. LABORATORY DATA: White count 7.6, hemoglobin 13.5, platelets 228. INR 1.1. Liver function test normal. Lipid profile pending. CT of the abdomen mild dilated loop of the small bowel, cannot exclude small-bowel obstruction. Small pericardial effusion. Lung scan was low probability for pulmonary embolism. ASSESSMENT AND PLAN: 1. An 87-year-old lady who had syncopal episode, most likely related to atrial fibrillation with RVR, less likely to be stroke or GI bleed. Found to have severe heme positive stool with black stool. I was planning on doing upper endoscopy today, but then anesthesia felt that she should be evaluated by cardiology because of the new onset atrial fibrillation with rapid ventricular response, despite the fact that it is slower rate now, but there is potential for risk. With that in mind, she had heme positive stool, last colonoscopy was many years ago, so we will defer the EGD to do upper endoscopy and colonoscopy at this time once the patient is seen by Cardiology and cleared. 2. We will continue monitoring H and H. 3. We will give the patient diet at this time and will plan on doing the procedures tomorrow. MD AFUA Montemayor/TL , 09:37 AM , 10:06 AM
[2018-02-27] MEDS ORDERED: LACTATED RINGER'S 1000 ML INJ 1,000 ML ONE (10:40)
[2018-02-27 10:48] LABS: CHOLESTEROL/ HDL RATIO 2.76 RATIO; HDL CHOLESTEROL 41.2 MG/DL (40.0-60.0)
[2018-02-27 11:23] LABS: HEMOGLOBIN A1C 5.4 % (4.3-6.0)
--- NOTE | 2018-02-27 11:48 | HHI.CCPN ---
Subjective Remarks/Hospital Course 87-year-old female with known history of hypertension, hyperlipidemia , diabetes who was brought to the hospital because of a syncopal episode. Patient was in a normal state of health when she was out to lunch with her family. They just walked into the restaurant and ordered her dinner they sat down and was sitting at the table for approximately 30 minutes and her daughter- in-law noticed that she was falling forward into the right. She caught her and Her from falling forward completely she did not hit her head or fall to the ground. She looked at her and noticed that her eyes rolled in the back of her head. Patient was lowered to the ground and that is when her son came out of the restroom and noticed his mother unconscious on the ground. There was no tonic-clonic movements, no extremity shaking. No loss of bladder control, however did have complete loss of bowel. They indicate that the patient lost consciousness for approximately 1 minute and when she was awake she became more alert. There is no significant episode of confusion. EMS was called and on initial presentation her blood pressure was 152/108. The patient did not want to be transferred here by ambulance so the family brought her to the emergency department. When the patient came into the emergency department she had significant tachycardia with a heart rate in 140s with atrial fibrillation RVR with low blood pressure 92/53. Patient was found to have been soiled with stool that was black in color which immediately turned positive Hemoccult. It was suspected that the patient may be in hypovolemic shock from acute GI bleed. Nursing staff and ER physician indicated that patient had the look and smell of acute GI bleed. Stat blood was released and patient was transfused 1 unit of packed red blood cells. Patient was started on immediate IV fluid bolus with initial improvement of her blood pressure, however when the fluid was complete her blood pressure dropped again. Blood pressure is doing much better at this time after infusion of packed red blood cell. Further workup indicated multiple other etiologies with CT scan showing partial small bowel obstruction, equivocal troponin elevation, acute renal failure superimposed on chronic kidney disease stage II, elevated lipase level. Due to patient's clinical condition with possible acute hypovolemic shock secondary to GI bleed patient will be admitted to critical care to the ICU for closer monitoring. 02/27/18: No acute events overnight. Blood pressure has maintain stability. Patient denies any new complaints, patient resting comfortably on room air. Patient afebrile. Objective Vital Signs Date Time Temp Pulse Resp B/P (MAP) Pulse Ox O2 Delivery O2 Flow Rate FiO2 02/27/18 08:15 02/27/18 08:01 97.5 60 36 100 02/27/18 07:30 21 02/26/18 19:21 Room Air Intake and Output 02/27/18 02/27/18 02/28/18 08:00 16:00 00:00 Intake Total 1570 ml Output Total 70 ml Balance 1500 ml Result Diagram: 02/27/18 0830 02/27/18 0204 Imaging Last Impressions Abdomen/Pelvis CT 02/26/18 1549 Signed Impressions: Service Date/Time: Monday, February 26, 2018 16:00 - CONCLUSION: 1. Mildly dilated loops of distal small bowel. There is air in the colon. Cannot exclude a partial small bowel obstruction. No acute bony abnormalities. 2. Small pericardial effusion. Taras Solorzano MD Chest X-Ray 02/26/18 0000 Signed Impressions: Service Date/Time: Monday, February 26, 2018 14:55 - CONCLUSION: 1. Mild cardiomegaly. Taras Solorzano MD Objective Remarks GENERAL: Well-developed, frail and cachectic, in no acute distress. alert and orientated. Patient appears to be pale HEENT: Head is normocephalic without any lesions or masses noted. Facial features are symmetric. Eyes: Pupils equal round reactive to light. Extraocular muscles are intact. Conjunctivae is pale. NECK: Supple without any masses. Trachea midline no deviation. No JVD, CARDIAC: Regular rhythm, regular rate. S1/S2 are heard. No murmurs gallops or rubs. LUNGS: Clear to auscultation bilaterally. No wheeze, rhonchi or rales. No use of accessory muscles on inspiration or expiration. ABDOMEN: Soft, nontender. Nondistended. Bowel sounds heard in all 4 quadrants. No organomegaly or masses. Negative rebound, negative guarding EXTREMITIES: No edema, pulses are equal bilaterally. No cyanosis or clubbing. Geographical franco of the hand are diminished. Patient has decreased capillary refill NEUROLOGY: Mood and affect appear appropriate. Cranial nerves II through XII grossly intact. Moving all extremities, speech is clear A/P Problem List: (1) Hypotension ICD Code: I95.9 - Hypotension, unspecified Status: Acute (2) GI bleed ICD Code: K92.2 - Gastrointestinal hemorrhage, unspecified Status: Acute (3) Elevated troponin ICD Code: R74.8 - Abnormal levels of other serum enzymes (4) Atrial fibrillation ICD Code: I48.91 - Unspecified atrial fibrillation Status: Acute (5) Syncope ICD Code: R55 - Syncope and collapse Status: Acute (6) Partial small bowel obstruction ICD Code: K56.600 - Partial intestinal obstruction, unspecified as to cause (7) Acute renal failure superimposed on stage 2 chronic kidney disease ICD Code: N17.9 - Acute kidney failure, unspecified; N18.2 - Chronic kidney disease, stage 2 (mild) Assessment and Plan NEUROLOGY Syncope Dementia Continue monitor neurological function CT of the brain did not indicate any acute abnormality Carotid ultrasound was normal without any evidence of hemodynamically significant stenosis CARDIOLOGY Hypotension Elevated troponin New onset atrial fibrillation with RVR, now sinus rhythm Hypertension Hyperlipidemia Status post 1 L IV fluid bolus Continue monitor blood pressure keep map greater than 65 Patient with mild increase in cardiac enzymes from 0.07-0.13 Unable to use aspirin secondary to acute GI bleed, Unable to use beta blockers secondary to bradycardia, CHADS/VASC 2, however unable to fully anticoagulate secondary to acute GI bleed , deferred to crossband layer Lipid panel performed and LDL 60 Awaiting echocardiogram result Cardiology consulted, discussed with Dr. Diaz who recommended the patient be transferred to the main hospital for cardiac evaluation, cardiac clearance PULMONOLOGY History of tobacco use VQ scan was performed which indicated low probability for pulmonary emboli O2 sat mentation maintain O2 sats greater than 92% Duo nebs as needed GASTROENTEROLOGY Acute melanic GI bleed Elevated lipase Partial small bowel obstruction by CT Continue to monitor hemoglobin and hematocrit every 6 hours, which continues to worsen, 3 g hemoglobin drop in spite of 1 unit transfused Status post transfusion 1 unit of packed red blood cells, 2 units on hold, transfuse if hemoglobin below 8.0 or signs of life-threatening bleed Continue Protonix drip Consulted regulatory technician to attempted endoscopy this morning, however anesthesiologist requires cardiac clearance before procedure secondary to new onset atrial fibrillation, elevated troponin Gastrologist indicates patient may have breakfast, then changed to clear liquids , prepping with GoLYTELY this afternoon, n.p.o. after midnight and plans for endoscopy tomorrow morning Follow-up [facility] RENAL Acute renal failure superimposed on chronic kidney disease stage II, improved Could be secondary to GI bleed, mild dehydration, Continue IV fluid Monitor renal function Replete electrolytes as needed INFECTIOUS DISEASE No active signs of infection at this time Patient has been given Rocephin 1 g IV 1 Urinalysis was unremarkable Blood cultures negative for 1 day We will hold off on any antibiotics until infectious source can be found HEMATOLOGY Continue monitor hemoglobin hematocrit, ENDOCRINOLOGY Monitor glucoses start Accu-Cheks if needed TSH 2.83 PROPHYLAXIS GI protection with Protonix IV DVT prevention with sequential compression devices, avoid chemical prophylaxis secondary to acute GI bleed LINES Peripheral IVs CODE STATUS Discussed with patient and son. Patient is full code Critical care time 35 minutes excluding procedures Problem Qualifiers (1) Hypotension: Qualified Codes: I95.9 - Hypotension, unspecified (2) GI bleed: Qualified Codes: K92.2 - Gastrointestinal hemorrhage, unspecified (3) Atrial fibrillation: Qualified Codes: I48.91 - Unspecified atrial fibrillation (4) Syncope: Qualified Codes: R55 - Syncope and collapse (5) Acute renal failure superimposed on stage 2 chronic kidney disease: Qualified Codes: N17.9 - Acute kidney failure, unspecified; N18.2 - Chronic kidney disease, stage 2 (mild) Eliel Tyson Feb 27, 2018 11:48
--- NOTE | 2018-02-27 12:24 | EKG ---
Date Performed: 02/26/2018 Time Performed: 14:18:58 PTAGE: 87 years EKG: Supraventricular tachycardia NONSPECIFIC ST & T-WAVE ABNORMALITY ABNORMAL RHYTHM ECG Compar ed to PREVIOUS TRACING , SVT is now present. Nonspecific ST segment changes are also present. P REVIOUS TRACIN09/14/2009 14.47 DOCTOR: Fidencio Moise Interpretating Date/Time 02/27/2018 12:20:42
[2018-02-27] MEDS: SODIUM CHLORIDE 0.9% FLUSH 10 ML FLUSH IV FLUSH SCH ×2 (12:51→19:33)
[2018-02-27] MEDS: PANTOPRAZOLE INJ 80 MG in SODIUM CHLORIDE 0.9% INJ 100 ML IV SCH ×2 (12:51→21:00)
[2018-02-27] MEDS: DOCUSATE SODIUM 50 MG/SENNA 8.6 MG TAB PO SCH ×2 (12:53→19:32)
--- NOTE | 2018-02-27 13:27 | ECHRPT ---
Indication: SOB CONCLUSIONS Normal left ventricular size. Wall thickness is normal. The left ventricular systolic function is normal with an estimated ejection fraction in the range of 55-60%. Mitral annular calcification is present. Rppdd-by-ynmr mitral valve regurgitation. There is trace tricuspid valve regurgitation. The estimated pulmonary arterial pressure is 26 mmHg. BP: / HR: Rhythm: MEASUREMENTS (Male / Female) Normal Values Technical Quality: 2D ECHO LV Diastolic Diameter PLAX 4.6 cm 4.2 - 5.9 / 3.9 - 5.3 cm LV Systolic Diameter PLAX 3.5 cm IVS Diastolic Thickness 0.9 cm 0.6 - 1.0 / 0.6 - 0.9 cm LVPW Diastolic Thickness 0.7 cm 0.6 - 1.0 / 0.6 - 0.9 cm LV Relative Wall Thickness 0.4 LA Systolic Diameter LX 3.5 cm 3.0 - 4.0 / 2.7 - 3.8 cm M-MODE Aortic Root Diameter MM 2.7 cm AV Cusp Separation MM 2.0 cm DOPPLER Mitral E Point Velocity 99.7 cm/s Mitral A Point Velocity 56.8 cm/s Mitral E to A Ratio 1.8 TR Peak Velocity 235.0 cm/s TR Peak Gradient 22.1 mmHg FINDINGS LEFT VENTRICLE Normal left ventricular size. Wall thickness is normal. The left ventricular systolic function is normal with an estimated ejection fraction in the range of 55-60%. RIGHT VENTRICLE Normal right ventricular size and systolic function. LEFT ATRIUM The left atrial size is normal. RIGHT ATRIUM The right atrial size is normal. ATRIAL SEPTUM Normal atrial septal thickness without atrial level shunting by limited color doppler interrogation. AORTA The aortic root and proximal ascending aorta are normal in size on limited imaging. MITRAL VALVE Mitral annular calcification is present. Aovge-im-fwed mitral valve regurgitation. AORTIC VALVE Trileaflet aortic valve. No aortic valve stenosis or regurgitation. TRICUSPID VALVE There is trace tricuspid valve regurgitation. The estimated pulmonary arterial pressure is 26 mmHg. PULMONARY VALVE The pulmonary valve is not well visualized. VESSELS The inferior vena cava is normal in size. PERICARDIUM No pericardial effusion. Rubens Diaz MD, FACC (Electronically Signed) Final Date:27 February 2018 13:27
[2018-02-27] MEDS ORDERED: PEG (High)/E-LYTE SOLN 4000 ML BTL PO ONE (15:00)
[2018-02-27 15:50] LABS: HEMATOCRIT 41.1 % (35.0-46.0); HEMOGLOBIN 13.5 GM/DL (11.6-15.3)
--- NOTE | 2018-02-27 17:30 | RADRPT ---
EXAM DATE/TIME: 02/27/2018 17:05 [facility] COMPARISON: ABDOMEN KUB ONLY, September 15, 2009, 9:13. INDICATIONS : Obstruction. MEDICAL HISTORY : Dementia. Hypercholesterolemia. Carcinoma, ovarian.Chemo SURGICAL HISTORY : Hysterectomy. Tonsillectomy.Bowel resection, exp lap, ortho ENCOUNTER: Subsequent ACUITY: 2 days PAIN SCORE: 0/10 LOCATION: Bilateral chest FINDINGS: Supine view of the abdomen was performed. The abdominal bowel gas pattern is unremarkable without ev idence of significant ileus. No abnormal masses, calcifications, or organomegaly is seen. The osseou s structures are unremarkable. CONCLUSION: No evidence of obstructive gas pattern. Charles Irving MD on February 27, 2018 at 17:27 Board Certified Radiologist. This report was verified electronically.
[2018-02-28] VITALS (16 sets, daily range): BP systolic 129–169; BP diastolic 59–98; PULSE 50–71; RESP 12–61; TEMP 97.6–98.6; O2SAT 91–99
[2018-02-28] MEDS: TEMAZEPAM 15 MG CAP PO PRN ×2 (00:19→23:04)
[2018-02-28 02:25] LABS: AUTOMATED NEUTROPHIL # 5.3 TH/MM3 (1.8-7.7); BASOPHIL % 0.5 % (0.0-2.0); EOSINOPHIL # 0.1 TH/MM3 (0-0.4); EOSINOPHIL % 1.2 % (0.0-4.0); HEMATOCRIT 40.9 % (35.0-46.0); HEMOGLOBIN 13.8 GM/DL (11.6-15.3); LYMPH % 21.7 % (9.0-44.0); LYMPHOCYTE # 1.7 TH/MM3 (1.0-4.8); MEAN CELL VOLUME 91.9 FL (80.0-100.0); MEAN CORPUSCULAR HEMOGLOBIN 31.1 PG (27.0-34.0); MEAN CORPUSCULAR HGB CONC 33.8 % (32.0-36.0); MEAN PLATELET VOLUME 8.2 FL (7.0-11.0); MONO % 7.8 % (0.0-8.0); MONOCYTE # 0.6 TH/MM3 (0-0.9); NEUT % 68.8 % (16.0-70.0); PLATELET COUNT 211 TH/MM3 (150-450); RED BLOOD COUNT 4.45 MIL/MM3 (4.00-5.30); RED CELL DISTRIBUTION WIDTH 14.6 % (11.6-17.2); WHITE BLOOD COUNT 7.7 TH/MM3 (4.0-11.0)
[2018-02-28 02:53] LABS: CALCIUM 7.9 MG/DL (8.5-10.1); CREATININE 0.73 MG/DL (0.50-1.00); MAGNESIUM 1.8 MG/DL (1.5-2.5)
[2018-02-28] MEDS: NS + KCL 20 MEQ INJ 1,000 ML IV SCH ×2 (02:55→16:28)
[2018-02-28] MEDS: CHLORHEXIDINE GLUCONATE 2 % 1 PACK (2 CLOTHS)(taper/protocol) TOPICAL SCH (04:00)
--- NOTE | 2018-02-28 08:25 | PD.CONS ---
HPI Consult Requested By Primary Care Physician Murray Okeefe M.D. History of Present Illness 87-year-old female with a past medical history of HTN, history of ovarian cancer status post surgery and chemotherapy, dementia who presented after syncopal episode. Patient has some baseline dementia and is not a great historian. She does not recall having any prodromal symptoms prior to her syncopal episode including chest pain, shortness breath, palpitations and has not noticed any of these symptoms since then. She is not sure how long she lost consciousness for. She is not sure if she has had any episodes like this in the past. She denies any prior history of heart disease. In the ED she was found to have grossly melanotic school, hypertension, and A. fib RVR in the 140s. Patient received IVF and transfusion 1 unit PRBCs and converted to NSR. GI planning on endoscopy, however anesthesia requested cardiac clearance prior to the procedure. Telemetry shows patient has remained NSR at least since patient was transferred to [facility]. Troponins were found to be minimally elevated at 0.07, 0.11, 0.13. Echocardiogram performed and was unremarkable with normal EF. Review of Systems ROS Limitations: Poor Historian Past Family Social History Allergies: Coded Allergies: codeine (Unverified Allergy, Mild, 02/26/18) Past Medical History Hypertension Ovarian cancer status post chemotherapy and surgery Dementia Past Surgical History Hysterectomy Cataract surgery Bladder sling surgery Surgery for lacerated bowel Reported Medications Reported Meds & Active Scripts Active Reported Valsartan-Hydrochlorothiazide 320-12.5 Mg Tab 1 Tab PO DAILY Active Ordered Medications Current Medications Medications (Trade) Dose Ordered Sig/Barbara Route Start Time Stop Time Status Last Admin Potassium Chloride/Sodium Chloride 1,000 ml @ 125 mls/hr Q8H IV 02/26/18 19:00 02/28/18 02:55 (NS Flush) 2 ml UNSCH PRN IV FLUSH 02/26/18 18:00 (NS Flush) 2 ml BID IV FLUSH 02/26/18 21:00 02/27/18 19:33 (Tylenol) 650 mg Q6H PRN PO 02/26/18 18:00 02/28/18 02:55 (Restoril) 15 mg HS PRN PO 02/26/18 18:00 02/28/18 00:19 (Duoneb Neb) 1 ampule Q2HR NEB PRN NEB 02/26/18 18:45 (Vonnie-Colace) 1 tab BID PO 02/26/18 21:00 02/27/18 19:32 (Milk Of Magnesia Liq) 30 ml Q12H PRN PO 02/26/18 18:00 (Senokot) 17.2 mg Q12H PRN PO 02/26/18 18:00 (Dulcolax Supp) 10 mg DAILY PRN RECTAL 02/26/18 18:00 (Lactulose Liq) 30 ml DAILY PRN PO 02/26/18 18:00 Pantoprazole Sodium 80 mg/ Sodium Chloride 100 ml @ 10 mls/hr Q10H IV 02/27/18 01:00 02/27/18 21:00 (D50w (Vial) Inj) 50 ml UNSCH PRN IV PUSH 02/26/18 19:00 (Glucagon Inj) 1 mg UNSCH PRN OTHER 02/26/18 19:00 (NovoLOG SUPPLEMENTAL SCALE) 1 ACHS SLIDING SCALE SQ 02/26/18 21:00 Miscellaneous Information Patient in critical care unit? Ass... Q361D .XX 02/27/18 09:00 (Chlorhexidine 2% Cloth) 3 pack DAILY@04 TOPICAL 02/28/18 04:00 03/04/18 04:01 02/28/18 04:00 (Chlorhexidine 2% Cloth) 3 pack UNSCH PRN TOPICAL 02/27/18 09:00 03/04/18 08:48 Family History significant for mother at 88 from heart disease, congestive heart failure, father was at age 76 with history of heart disease and stroke Social History Patient quit smoking 20 years ago, prior to that she smoked 2 pack of cigarettes daily. Drinks alcohol rarely Physical Exam Vital Signs Vital Signs Date Time Temp Pulse Resp B/P (MAP) Pulse Ox O2 Delivery O2 Flow Rate FiO2 02/28/18 06:00 54 19 141/63 (89) 91 02/28/18 06:00 54 02/28/18 05:00 52 12 95 02/28/18 04:00 98.4 54 21 129/59 (82) 95 02/28/18 04:00 50 02/28/18 03:00 56 26 132/67 (88) 95 02/28/18 02:00 56 02/28/18 02:00 54 22 94 02/28/18 01:00 58 27 95 02/28/18 00:00 55 02/28/18 00:00 59 61 94 02/27/18 23:35 98 21 02/27/18 23:00 63 37 125/60 (81) 92 02/27/18 22:00 56 02/27/18 22:00 56 26 114/56 (75) 97 02/27/18 21:00 58 22 132/60 (84) 98 02/27/18 20:00 56 02/27/18 20:00 98.0 58 29 136/76 (96) 97 02/27/18 16:01 55 02/27/18 16:00 97.6 55 24 128/60 (82) 99 02/27/18 14:00 97.6 55 24 128/60 (82) 99 02/27/18 13:00 62 24 149/66 (93) 99 02/27/18 12:00 52 39 154/69 (97) 98 02/27/18 12:00 52 02/27/18 11:35 52 35 153/67 (95) 98 02/27/18 09:00 54 35 97 Physical Exam GENERAL: Well-developed well-nourished. In no acute distress. NECK: No carotid bruits. No JVD. CARDIOVASCULAR: Regular rate and rhythm. No murmur appreciated. RESPIRATORY: No accessory muscle use. Clear to auscultation. Breath sounds equal bilaterally. MUSCULOSKELETAL: No clubbing or cyanosis. No edema. NEUROLOGICAL: Awake and alert. Normal speech. Laboratory Laboratory Tests Test 02/27/18 08:30 02/27/18 14:45 02/28/18 02:10 Hemoglobin 13.5 13.5 13.8 Hematocrit 41.9 41.1 40.9 White Blood Count 7.7 Red Blood Count 4.45 Mean Corpuscular Volume 91.9 Mean Corpuscular Hemoglobin 31.1 Mean Corpuscular Hemoglobin Concent 33.8 Red Cell Distribution Width 14.6 Platelet Count 211 Mean Platelet Volume 8.2 Neutrophils (%) (Auto) 68.8 Lymphocytes (%) (Auto) 21.7 Monocytes (%) (Auto) 7.8 Eosinophils (%) (Auto) 1.2 Basophils (%) (Auto) 0.5 Neutrophils # (Auto) 5.3 Lymphocytes # (Auto) 1.7 Monocytes # (Auto) 0.6 Eosinophils # (Auto) 0.1 Basophils # (Auto) 0.0 CBC Comment DIFF FINAL Differential Comment Blood Urea Nitrogen 13 Creatinine 0.73 Random Glucose 113 Calcium Level 7.9 Magnesium Level 1.8 Sodium Level 146 Potassium Level 4.5 Chloride Level 115 Carbon Dioxide Level 25.0 Anion Gap 6 Estimat Glomerular Filtration Rate 76 Date/Time Source Procedure Growth Status 02/26/18 18:45 Blood Peripheral Aerobic Blood Culture - Preliminary NO GROWTH IN 1 DAY Resulted 02/26/18 18:45 Blood Peripheral Anaerobic Blood Culture - Preliminary NO GROWTH IN 1 DAY Resulted Result Diagram: 02/28/18 0210 02/28/18 0210 Imaging Last Impressions Abdomen X-Ray 02/27/18 0000 Signed Impressions: Service Date/Time: Tuesday, February 27, 2018 17:05 - CONCLUSION: No evidence of obstructive gas pattern. Charles Irving MD Abdomen/Pelvis CT 02/26/18 1549 Signed Impressions: Service Date/Time: Monday, February 26, 2018 16:00 - CONCLUSION: 1. Mildly dilated loops of distal small bowel. There is air in the colon. Cannot exclude a partial small bowel obstruction. No acute bony abnormalities. 2. Small pericardial effusion. Taras Solorzano MD Lung Scan- Nuclear Medicine 02/26/18 0000 Signed Impressions: Service Date/Time: Monday, February 26, 2018 17:23 - CONCLUSION: Low probability for pulmonary embolus. Jamie Chopra MD Head CT 02/26/18 0000 Signed Impressions: Service Date/Time: Monday, February 26, 2018 18:57 - CONCLUSION: No acute disease. Jamie Chopra MD Chest X-Ray 02/26/18 0000 Signed Impressions: Service Date/Time: Monday, February 26, 2018 14:55 - CONCLUSION: 1. Mild cardiomegaly. Taras Solorzano MD Carotid Artery Ultrasound 02/26/18 0000 Signed Impressions: Service Date/Time: Monday, February 26, 2018 19:30 - CONCLUSION: No evidence for hemodynamically significant stenosis. Jamie Chopra MD Assessment and Plan Assessment and Plan 87-year-old female with a past medical history of HTN, history of ovarian cancer status post surgery and chemotherapy, dementia who presented after syncopal episode. She was found to have grossly melanotic stools as well as new onset A. fib with RVR. A. fib with RVR: Patient returned to and has remained in NSR since receiving IVF and 1 unit PRBCs in the ED, possibly induced secondary to severe volume depletion/hypotension. Patient's baseline heart rate appears to be in the 50s, no rate control this time. No anticoagulation at this time secondary to bleeding. Elevated troponin: Minimal elevation. Most likely demand mediated secondary to RVR, hypotension, and bleeding. No plans for ischemic work up at this time. Patient is cardiac cleared to proceed with endoscopies. Tato Heard Feb 28, 2018 08:25
[2018-02-28] MEDS: DOCUSATE SODIUM 50 MG/SENNA 8.6 MG TAB PO SCH ×2 (09:00→21:16)
[2018-02-28] MEDS: SODIUM CHLORIDE 0.9% FLUSH 10 ML FLUSH IV FLUSH SCH ×2 (09:00→21:17)
--- NOTE | 2018-02-28 10:40 | HHI.CCPN ---
Subjective Remarks/Hospital Course 87-year-old female with known history of hypertension, hyperlipidemia , diabetes who was brought to the hospital because of a syncopal episode. Patient was in a normal state of health when she was out to lunch with her family. They just walked into the restaurant and ordered her dinner they sat down and was sitting at the table for approximately 30 minutes and her daughter- in-law noticed that she was falling forward into the right. She caught her and Her from falling forward completely she did not hit her head or fall to the ground. She looked at her and noticed that her eyes rolled in the back of her head. Patient was lowered to the ground and that is when her son came out of the restroom and noticed his mother unconscious on the ground. There was no tonic-clonic movements, no extremity shaking. No loss of bladder control, however did have complete loss of bowel. They indicate that the patient lost consciousness for approximately 1 minute and when she was awake she became more alert. There is no significant episode of confusion. EMS was called and on initial presentation her blood pressure was 152/108. The patient did not want to be transferred here by ambulance so the family brought her to the emergency department. When the patient came into the emergency department she had significant tachycardia with a heart rate in 140s with atrial fibrillation RVR with low blood pressure 92/53. Patient was found to have been soiled with stool that was black in color which immediately turned positive Hemoccult. It was suspected that the patient may be in hypovolemic shock from acute GI bleed. Nursing staff and ER physician indicated that patient had the look and smell of acute GI bleed. Stat blood was released and patient was transfused 1 unit of packed red blood cells. Patient was started on immediate IV fluid bolus with initial improvement of her blood pressure, however when the fluid was complete her blood pressure dropped again. Blood pressure is doing much better at this time after infusion of packed red blood cell. Further workup indicated multiple other etiologies with CT scan showing partial small bowel obstruction, equivocal troponin elevation, acute renal failure superimposed on chronic kidney disease stage II, elevated lipase level. Due to patient's clinical condition with possible acute hypovolemic shock secondary to GI bleed patient will be admitted to critical care to the ICU for closer monitoring. 02/27/18: No acute events overnight. Blood pressure has maintain stability. Patient denies any new complaints, patient resting comfortably on room air. Patient afebrile. 02/28: Hgb stable. Normotensive. Forgetful but son at bedside to help with subjective. For EGD today. Remains in NSR. Objective Vital Signs Date Time Temp Pulse Resp B/P (MAP) Pulse Ox O2 Delivery O2 Flow Rate FiO2 02/28/18 09:09 94 21 02/28/18 06:00 54 19 141/63 (89) 02/28/18 04:00 98.4 02/26/18 19:21 Room Air Intake and Output 02/28/18 02/28/18 03/01/18 08:00 16:00 00:00 Intake Total 240 ml Output Total 2000 ml Balance -1760 ml Result Diagram: 02/28/18 0210 02/28/18 0210 Imaging Last Impressions Abdomen/Pelvis CT 02/26/18 1549 Signed Impressions: Service Date/Time: Monday, February 26, 2018 16:00 - CONCLUSION: 1. Mildly dilated loops of distal small bowel. There is air in the colon. Cannot exclude a partial small bowel obstruction. No acute bony abnormalities. 2. Small pericardial effusion. Taras Solorzano MD Chest X-Ray 02/26/18 0000 Signed Impressions: Service Date/Time: Monday, February 26, 2018 14:55 - CONCLUSION: 1. Mild cardiomegaly. Taras Solorzano MD Objective Remarks GENERAL: Frail and cachectic, in no acute distress. alert and confused. HEENT: Normocephalic. Facial features are symmetric. EYES: Pupils equal round reactive to light. Extraocular muscles are intact. Conjunctivae is pale. NECK: Supple without any masses. Trachea midline no deviation. No obstruction. CARDIAC: Regular rhythm, regular rate. NL S1/S2. No murmurs gallops or rubs. No JVD. LUNGS: Clear to auscultation bilaterally. No wheeze, rhonchi or rales. No use of accessory muscles on inspiration or expiration. ABDOMEN: Soft, nontender. Nondistended. Bowel sounds active. Negative rebound, no guarding EXTREMITIES: No edema, pulses are equal bilaterally. No cyanosis or clubbing. Normal cap refill. NEUROLOGY: Mood and affect appear appropriate. Confused. Moving all 4 extremities, speech is clear, conversant. A/P Problem List: (1) Hypotension ICD Code: I95.9 - Hypotension, unspecified Status: Acute (2) GI bleed ICD Code: K92.2 - Gastrointestinal hemorrhage, unspecified Status: Acute (3) Elevated troponin ICD Code: R74.8 - Abnormal levels of other serum enzymes (4) Atrial fibrillation ICD Code: I48.91 - Unspecified atrial fibrillation Status: Acute (5) Syncope ICD Code: R55 - Syncope and collapse Status: Acute (6) Partial small bowel obstruction ICD Code: K56.600 - Partial intestinal obstruction, unspecified as to cause (7) Acute renal failure superimposed on stage 2 chronic kidney disease ICD Code: N17.9 - Acute kidney failure, unspecified; N18.2 - Chronic kidney disease, stage 2 (mild) Assessment and Plan NEUROLOGY Syncope Dementia Continue monitor neurological function CT of the brain did not indicate any acute abnormality Carotid ultrasound was normal without any evidence of hemodynamically significant stenosis Poor memory for recent events. CARDIOLOGY Hypotension Elevated troponin New onset atrial fibrillation with RVR, now sinus rhythm Hypertension Hyperlipidemia Status post 1 L IV fluid bolus Continue monitor blood pressure keep map greater than 65 Patient with mild increase in cardiac enzymes from 0.07-0.13 Unable to use aspirin secondary to acute GI bleed, Unable to use beta blockers secondary to bradycardia, CHADS/VASC 2, however unable to fully anticoagulate secondary to acute GI bleed , deferred to floor inspector Lipid panel performed and LDL 60 Awaiting echocardiogram result Cardiology consulted, discussed with Dr. Diaz who recommended the patient be transferred to the [facility] for cardiac evaluation, cardiac clearance PULMONOLOGY History of tobacco use VQ scan was performed which indicated low probability for pulmonary emboli O2 sat mentation maintain O2 sats greater than 92% Duo nebs as needed GASTROENTEROLOGY Acute melanic GI bleed Elevated lipase Partial small bowel obstruction by CT Continue to monitor hemoglobin and hematocrit every 6 hours, which continues to worsen, 3 g hemoglobin drop in spite of 1 unit transfused Status post transfusion 1 unit of packed red blood cells, 2 units on hold, transfuse if hemoglobin below 8.0 or signs of life-threatening bleed Continue Protonix drip Consulted photography assistant to attempted endoscopy this morning, however anesthesiologist requires cardiac clearance before procedure secondary to new onset atrial fibrillation, elevated troponin Gastrologist indicates patient may have breakfast, then changed to clear liquids , prepping with GoLYTELY this afternoon, n.p.o. after midnight and plans for endoscopy today. RENAL Acute renal failure superimposed on chronic kidney disease stage II, improved Could be secondary to GI bleed, mild dehydration, Continue IV fluid Monitor renal function Replete electrolytes as needed INFECTIOUS DISEASE No active signs of infection at this time Patient has been given Rocephin 1 g IV 1 Urinalysis was unremarkable Blood cultures negative for 1 day HEMATOLOGY Continue monitor hemoglobin hematocrit, ENDOCRINOLOGY Monitor glucoses start Accu-Cheks if needed TSH 2.83 PROPHYLAXIS GI protection with Protonix IV DVT prevention with sequential compression devices, avoid chemical prophylaxis secondary to acute GI bleed LINES Peripheral IVs CODE STATUS Discussed with patient and son. Patient is full code Overall impression: Patient is breathing comfortably and hemodynamically stable. For EGD today. Problem Qualifiers (1) Hypotension: Qualified Codes: I95.9 - Hypotension, unspecified (2) GI bleed: Qualified Codes: K92.2 - Gastrointestinal hemorrhage, unspecified (3) Atrial fibrillation: Qualified Codes: I48.91 - Unspecified atrial fibrillation (4) Syncope: Qualified Codes: R55 - Syncope and collapse (5) Acute renal failure superimposed on stage 2 chronic kidney disease: Qualified Codes: N17.9 - Acute kidney failure, unspecified; N18.2 - Chronic kidney disease, stage 2 (mild) Roni Busch MD Feb 28, 2018 10:40
[2018-02-28] MEDS ORDERED: PROPOFOL 200 MG/20 ML AMP IV ONE (12:00)
[2018-02-28] MEDS ORDERED: LIDOCAINE HCL 1% PF 5 ML SYRINGE OTHER ONE (12:00)
[2018-02-28] MEDS ORDERED: SUCCINYLCHOLINE CHLORIDE 100 MG/5 ML SYRINGE IV PUSH ONE (12:00)
[2018-02-28] MEDS ORDERED: DO NOT ADM ANY ANTICOAGULANT DRUGS PRN (13:10)
--- NOTE | 2018-02-28 13:19 | GIPROC ---
[facility] [address] [facility]. [facility], [id number] EGD PROCEDURE REPORT EXAM DATE: 02/28/2018 PATIENT NAME: Arminda Berumen MR #: [id number] BIRTHDATE: 1930 ATTENDING: Melinda Mcgowan MD ORDER #: [id number] PROFESSOR OF THEOLOGY: Alfredito Murphy and Raquel Giles STATUS: inpatient INDICATIONS: The patient is a 87 yr old female here for an EGD due to melena PROCEDURE PERFORMED: EGD w/ biopsy MEDICATIONS: Per Anesthesia and None. TOPICAL ANESTHETIC: CONSENT: The patient understands the risks and benefits of the procedure and understands that these risks include, but are not limited to: sedation, allergic reaction, infection, perforation and/or bleeding. Alternative means of evaluation and treatment include, among others: physical exam, x-rays, and/or surgical intervention. The patient elects to proceed with this endoscopic procedure. medical equipment was checked for proper function. Hand hygiene and appropriate measures for infection prevention was taken. After the risks, benefits and alternatives of the procedure were thoroughly explained, Informed consent was verified, confirmed and timeout was successfully executed by the treatment team. The patient was anesthetized with topical anesthesia and the Pentax [id number] endoscope was introduced through the mouth and advanced to the second portion of the duodenum. Retroflexed views revealed no abnormalities The gastroscope was then slowly withdrawn and removed. ESOPHAGUS: There was LA Class A esophagitis noted. STOMACH: There was erythematous moderate gastritis in the gastric antrum. A biopsy was performed using cold forceps. Sample sent for histology. DUODENUM: The duodenal mucosa appeared normal in the 2nd part of the duodenum. ADVERSE EVENTS: There were no complications. IMPRESSIONS: 1. There was LA Class A esophagitis noted 2. There was erythematous gastritis in the gastric antrum; biopsy was performed 3. Normal duodenal mucosa in the 2nd part of the duodenum 4. Retroflexed views revealed no abnormalities RECOMMENDATIONS: 1. Await biopsy results. Biopsy results will not be ready for 7-10 days. If you don't hear from us in two weeks, call our office for biopsy results. 2. Anti-reflux regimen 3. Continue PPI 4. Avoid NSAIDS 5. Colonoscopy PATIENT CONDITION: stable DISPOSITION: Inpatient REPEAT EXAM: Return 2 years EGD pending biopsy results Melinda Mcgowan MD eSigned: Melinda Mcgowan MD 02/28/2018 1:18 PM cc: PATIENT NAME: Arminda Berumen MR#: [id number]
[2018-02-28] MEDS: INSULIN ASPART SUPPLEMENTAL SCALE SQ SCH ×2 (16:28→21:00)
[2018-02-28] MEDS: PANTOPRAZOLE INJ 80 MG in SODIUM CHLORIDE 0.9% INJ 100 ML IV SCH (17:00)
[2018-03-01] VITALS (14 sets, daily range): BP systolic 137–169; BP diastolic 60–74; PULSE 57–71; RESP 16–18; TEMP 97.9–98.4; O2SAT 93–97
[2018-03-01] MEDS: NS + KCL 20 MEQ INJ 1,000 ML IV SCH (03:00)
[2018-03-01] MEDS: PANTOPRAZOLE INJ 80 MG in SODIUM CHLORIDE 0.9% INJ 100 ML IV SCH (03:03)
[2018-03-01] MEDS: CHLORHEXIDINE GLUCONATE 2 % 1 PACK (2 CLOTHS)(taper/protocol) TOPICAL SCH (03:58)
[2018-03-01] MEDS: INSULIN ASPART SUPPLEMENTAL SCALE SQ SCH ×4 (08:00→21:00)
--- NOTE | 2018-03-01 08:21 | HHI.PR ---
Subjective Remarks Follow up GI bleed. Patient states that she feels better today. Denies chest pain, dyspnea. No events reported overnight by nursing. No further bleeding noted. Objective Vitals Vital Signs Date Time Temp Pulse Resp B/P (MAP) Pulse Ox O2 Delivery O2 Flow Rate FiO2 03/01/18 06:00 61 03/01/18 04:00 98.1 71 169/73 (105) 93 03/01/18 04:00 71 03/01/18 02:00 60 03/01/18 00:00 98.2 63 137/60 (85) 93 03/01/18 00:00 63 02/28/18 22:00 68 02/28/18 20:00 66 02/28/18 20:00 97.6 66 169/72 (104) 95 02/28/18 18:00 71 02/28/18 16:00 55 02/28/18 16:00 98.4 55 18 156/98 (117) 98 02/28/18 14:00 59 02/28/18 13:42 62 18 95 Room Air 02/28/18 13:30 57 18 161/68 (99) 94 Room Air 02/28/18 13:19 98.1 63 18 158/90 (112) 96 Room Air 02/28/18 12:00 61 02/28/18 11:30 98.0 54 18 158/69 (98) 95 02/28/18 10:00 55 02/28/18 09:09 94 21 I/O 02/28/18 02/28/18 02/28/18 03/01/18 03/01/18 03/01/18 07:00 15:00 23:00 07:00 15:00 23:00 Intake Total 240 ml 200 ml 480 ml 610 ml Output Total 2000 ml 450 ml 2700 ml 1800 ml Balance -1760 ml -250 ml -2220 ml -1190 ml Intake Oral 240 ml 480 ml 480 ml IV Total 130 ml Other 200 ml Output Urine Total 2000 ml 450 ml 2700 ml 1800 ml # Bowel Movements 0 0 Result Diagram: 02/28/18 0210 02/28/18 0210 Imaging Last Impressions Abdomen X-Ray 02/27/18 0000 Signed Impressions: Service Date/Time: Tuesday, February 27, 2018 17:05 - CONCLUSION: No evidence of obstructive gas pattern. Charles Irving MD Abdomen/Pelvis CT 02/26/18 1549 Signed Impressions: Service Date/Time: Monday, February 26, 2018 16:00 - CONCLUSION: 1. Mildly dilated loops of distal small bowel. There is air in the colon. Cannot exclude a partial small bowel obstruction. No acute bony abnormalities. 2. Small pericardial effusion. Taras Solorzano MD Lung Scan-V Nuclear Medicine 02/26/18 0000 Signed Impressions: Service Date/Time: Monday, February 26, 2018 17:23 - CONCLUSION: Low probability for pulmonary embolus. Jamie Chopra MD Head CT 02/26/18 0000 Signed Impressions: Service Date/Time: Monday, February 26, 2018 18:57 - CONCLUSION: No acute disease. Jamie Chopra MD Chest X-Ray 02/26/18 0000 Signed Impressions: Service Date/Time: Monday, February 26, 2018 14:55 - CONCLUSION: 1. Mild cardiomegaly. Taras Solorzano MD Carotid Artery Ultrasound 02/26/18 0000 Signed Impressions: Service Date/Time: Monday, February 26, 2018 19:30 - CONCLUSION: No evidence for hemodynamically significant stenosis. Jamie Chopra MD Objective Remarks General: Elderly female in no acute distress. Hard of hearing. Heart: Regular rate and rhythm. No murmur. Lungs: Clear to auscultation bilaterally. No wheezes, rales, or rhonchi. Breathing is nonlabored. Abdomen: Soft, nontender, nondistended. Extremities: No lower extremity edema. Psych: Alert, answers questions appropriately. Procedures None Urinary Catheter: Yes Assessment to: Remove Vascular Central Line Catheter: No A/P Problem List: (1) Hypotension ICD Code: I95.9 - Hypotension, unspecified Status: Acute (2) GI bleed ICD Code: K92.2 - Gastrointestinal hemorrhage, unspecified Status: Acute (3) Elevated troponin ICD Code: R74.8 - Abnormal levels of other serum enzymes (4) Partial small bowel obstruction ICD Code: K56.600 - Partial intestinal obstruction, unspecified as to cause (5) Syncope ICD Code: R55 - Syncope and collapse Status: Acute (6) Atrial fibrillation ICD Code: I48.91 - Unspecified atrial fibrillation Status: Acute (7) Acute renal failure superimposed on stage 2 chronic kidney disease ICD Code: N17.9 - Acute kidney failure, unspecified; N18.2 - Chronic kidney disease, stage 2 (mild) Assessment and Plan 1. GI bleed: Appreciate gastroenterology recommendations. Status post EGD/ colonoscopy, which showed esophagitis, gastritis. No further active bleeding noted. H&H have remained stable. Continue Protonix. 2. Syncopal episode: Likely secondary to GI bleed. CT of the brain shows no acute change. Carotid ultrasound negative for hemodynamically significant stenosis. 3. Atrial fibrillation with RVR: Appreciate cardiology recommendations. Now in sinus rhythm. Unable to fully anticoagulate secondary to acute GI bleed. 4. Partial small bowel obstruction: Seen on CT. No symptoms this morning. Heart healthy diet per GI. 5. Acute kidney injury superimposed on chronic kidney disease stage II: Improving with IV fluids. 6. DVT prophylaxis: SCDs. Avoid chemical prophylaxis secondary to GI bleed. Discharge Planning Transfer to medical/surgical floor with telemetry. Problem Qualifiers (1) Hypotension: Qualified Codes: I95.9 - Hypotension, unspecified (2) GI bleed: Qualified Codes: K92.2 - Gastrointestinal hemorrhage, unspecified (3) Syncope: Qualified Codes: R55 - Syncope and collapse (4) Atrial fibrillation: Qualified Codes: I48.91 - Unspecified atrial fibrillation (5) Acute renal failure superimposed on stage 2 chronic kidney disease: Qualified Codes: N17.9 - Acute kidney failure, unspecified; N18.2 - Chronic kidney disease, stage 2 (mild) Eliel Houston MD Mar 01, 2018 08:21
[2018-03-01] MEDS: DOCUSATE SODIUM 50 MG/SENNA 8.6 MG TAB PO SCH ×2 (09:32→22:49)
[2018-03-01] MEDS: SODIUM CHLORIDE 0.9% FLUSH 10 ML FLUSH IV FLUSH SCH ×2 (09:32→21:00)
[2018-03-01] MEDS: PANTOPRAZOLE SOD 40 MG DELAYED RELEASE TAB PO SCH ×2 (09:36→22:49)
[2018-03-01 11:15] LABS: AUTOMATED NEUTROPHIL # 5.7 TH/MM3 (1.8-7.7); BASOPHIL % 0.5 % (0.0-2.0); EOSINOPHIL # 0.1 TH/MM3 (0-0.4); EOSINOPHIL % 1.2 % (0.0-4.0); HEMATOCRIT 43.1 % (35.0-46.0); HEMOGLOBIN 14.7 GM/DL (11.6-15.3); LYMPH % 13.6 % (9.0-44.0); MEAN CELL VOLUME 91.6 FL (80.0-100.0); MEAN CORPUSCULAR HEMOGLOBIN 31.2 PG (27.0-34.0); MEAN CORPUSCULAR HGB CONC 34.1 % (32.0-36.0); MEAN PLATELET VOLUME 8.4 FL (7.0-11.0); MONO % 9.1 % (0.0-8.0); MONOCYTE # 0.7 TH/MM3 (0-0.9); NEUT % 75.6 % (16.0-70.0); PLATELET COUNT 215 TH/MM3 (150-450); RED BLOOD COUNT 4.71 MIL/MM3 (4.00-5.30); RED CELL DISTRIBUTION WIDTH 14.5 % (11.6-17.2); WHITE BLOOD COUNT 7.5 TH/MM3 (4.0-11.0)
[2018-03-01 11:51] LABS: CALCIUM 8.5 MG/DL (8.5-10.1); CREATININE 0.89 MG/DL (0.50-1.00)
--- NOTE | 2018-03-01 12:27 | HHI.GIFU ---
Subjective Remarks Pt resting in bed No GI complaints at this time States good appetite, had breakfast, waiting on lunch Has not had a BM since procedure yesterday Denies nausea, vomiting Anxious to go home (Moira Sheets) Objective Vitals I&O Vital Signs Date Time Temp Pulse Resp B/P (MAP) Pulse Ox O2 Delivery O2 Flow Rate FiO2 03/01/18 10:00 63 03/01/18 08:27 95 21 03/01/18 08:00 97.9 71 146/66 (92) 93 03/01/18 08:00 71 03/01/18 06:00 61 03/01/18 04:00 98.1 71 169/73 (105) 93 03/01/18 04:00 71 03/01/18 02:00 60 03/01/18 00:00 98.2 63 137/60 (85) 93 03/01/18 00:00 63 02/28/18 22:00 68 02/28/18 20:00 66 02/28/18 20:00 97.6 66 169/72 (104) 95 02/28/18 18:00 71 02/28/18 16:00 55 02/28/18 16:00 98.4 55 18 156/98 (117) 98 02/28/18 14:00 59 02/28/18 13:42 62 18 95 Room Air 02/28/18 13:30 57 18 161/68 (99) 94 Room Air 02/28/18 13:19 98.1 63 18 158/90 (112) 96 Room Air I/O 02/28/18 02/28/18 02/28/18 03/01/18 03/01/18 03/01/18 07:00 15:00 23:00 07:00 15:00 23:00 Intake Total 240 ml 200 ml 480 ml 610 ml Output Total 2000 ml 450 ml 2700 ml 1800 ml Balance -1760 ml -250 ml -2220 ml -1190 ml Intake Oral 240 ml 480 ml 480 ml IV Total 130 ml Other 200 ml Output Urine Total 2000 ml 450 ml 2700 ml 1800 ml # Bowel Movements 0 0 Laboratory Laboratory Tests Test 03/01/18 10:36 White Blood Count 7.5 Red Blood Count 4.71 Hemoglobin 14.7 Hematocrit 43.1 Mean Corpuscular Volume 91.6 Mean Corpuscular Hemoglobin 31.2 Mean Corpuscular Hemoglobin Concent 34.1 Red Cell Distribution Width 14.5 Platelet Count 215 Mean Platelet Volume 8.4 Neutrophils (%) (Auto) 75.6 Lymphocytes (%) (Auto) 13.6 Monocytes (%) (Auto) 9.1 Eosinophils (%) (Auto) 1.2 Basophils (%) (Auto) 0.5 Neutrophils # (Auto) 5.7 Lymphocytes # (Auto) 1.0 Monocytes # (Auto) 0.7 Eosinophils # (Auto) 0.1 Basophils # (Auto) 0.0 CBC Comment DIFF FINAL Differential Comment Blood Urea Nitrogen 16 Creatinine 0.89 Random Glucose 113 Calcium Level 8.5 Sodium Level 143 Potassium Level 3.8 Chloride Level 107 Carbon Dioxide Level 27.0 Anion Gap 9 Estimat Glomerular Filtration Rate 60 Date/Time Source Procedure Growth Status 02/26/18 18:45 Blood Peripheral Aerobic Blood Culture - Preliminary NO GROWTH IN 3 DAYS Resulted 02/26/18 18:45 Blood Peripheral Anaerobic Blood Culture - Preliminary NO GROWTH IN 3 DAYS Resulted Imaging Last Impressions Abdomen X-Ray 02/27/18 0000 Signed Impressions: Service Date/Time: Tuesday, February 27, 2018 17:05 - CONCLUSION: No evidence of obstructive gas pattern. Charles Irving MD Abdomen/Pelvis CT 02/26/18 1549 Signed Impressions: Service Date/Time: Monday, February 26, 2018 16:00 - CONCLUSION: 1. Mildly dilated loops of distal small bowel. There is air in the colon. Cannot exclude a partial small bowel obstruction. No acute bony abnormalities. 2. Small pericardial effusion. Taras Solorzano MD Lung Scan- Nuclear Medicine 02/26/18 0000 Signed Impressions: Service Date/Time: Monday, February 26, 2018 17:23 - CONCLUSION: Low probability for pulmonary embolus. Jamie Chopra MD Head CT 02/26/18 0000 Signed Impressions: Service Date/Time: Monday, February 26, 2018 18:57 - CONCLUSION: No acute disease. Jamie Chopra MD Chest X-Ray 02/26/18 0000 Signed Impressions: Service Date/Time: Monday, February 26, 2018 14:55 - CONCLUSION: 1. Mild cardiomegaly. Taras Solorzano MD Carotid Artery Ultrasound 02/26/18 0000 Signed Impressions: Service Date/Time: Monday, February 26, 2018 19:30 - CONCLUSION: No evidence for hemodynamically significant stenosis. Jamie Chopra MD Physical Exam HEENT: Normocephalic; atraumatic CHEST: Even/unlabored CARDIAC: RRR ABDOMEN: Soft, nondistended, nontender; bowel sounds active SKIN: Normal; no rash; no jaundice. RESIDENTIAL PROGRAM MANAGER: No focal deficits; alert and oriented times three. (Moira Sheets) Assessment and Plan Plan Assessment: - Syncopal episode with Hemoccult positive stool- concern for possible GIB as source for syncope S/P EGD yesterday --> Class A esophagitis, erythematous gastritis, normal duodenal mucosa. H/H remains stable today- pt denies emesis and has not had BM since procedure Anxious to go home, and would like to do colonoscopy outpt - A-fib RVR- likely cause for syncopal episode, now in sinus rhythm Plan: EGD biopsy pending Protonix PO Avoid NSAIDs Colonoscopy outpatient GI will sign off, please reconsult as needed Have pt follow up with GI after discharge Pt has been seen and examined by myself and Dr. Mcgowan and this note is written on his behalf (Moira Sheets) Physician Comments Seen and examined with GIFTY, no gi bleeding. Doing well from gi standpoint. Recommended outpatient colonoscopy to her. FU with GI upon dc. Will sign off. Thank you (Melinda Mcgowan MD) Moira Sheets Mar 01, 2018 12:27 Melinda Mcgowan MD Mar 01, 2018 14:32
[2018-03-02] VITALS: BP 159/76; PULSE 57; RESP 16; TEMP 97.9; O2SAT 95
[2018-03-02 03:55] VITALS: PULSE 68
[2018-03-02 04:00] VITALS: BP 142/61; PULSE 60; RESP 16; TEMP 98.3; O2SAT 96
[2018-03-02] MEDS: CHLORHEXIDINE GLUCONATE 2 % 1 PACK (2 CLOTHS)(taper/protocol) TOPICAL SCH (04:00)
[2018-03-02 06:50] LABS: AUTOMATED NEUTROPHIL # 3.8 TH/MM3 (1.8-7.7); BASOPHIL % 0.7 % (0.0-2.0); EOSINOPHIL # 0.2 TH/MM3 (0-0.4); HEMATOCRIT 42.9 % (35.0-46.0); HEMOGLOBIN 14.6 GM/DL (11.6-15.3); LYMPH % 19.6 % (9.0-44.0); LYMPHOCYTE # 1.1 TH/MM3 (1.0-4.8); MEAN CELL VOLUME 92.1 FL (80.0-100.0); MEAN CORPUSCULAR HEMOGLOBIN 31.3 PG (27.0-34.0); MEAN PLATELET VOLUME 8.4 FL (7.0-11.0); MONO % 10.6 % (0.0-8.0); MONOCYTE # 0.6 TH/MM3 (0-0.9); NEUT % 66.1 % (16.0-70.0); PLATELET COUNT 209 TH/MM3 (150-450); RED BLOOD COUNT 4.66 MIL/MM3 (4.00-5.30); RED CELL DISTRIBUTION WIDTH 14.7 % (11.6-17.2); WHITE BLOOD COUNT 5.7 TH/MM3 (4.0-11.0)
[2018-03-02 07:06] LABS: BICARBONATE 28.6 MEQ/L (21.0-32.0); CALCIUM 8.6 MG/DL (8.5-10.1); CREATININE 0.73 MG/DL (0.50-1.00)
[2018-03-02 08:00] VITALS: BP 174/77; PULSE 55; PULSE 65; RESP 15; TEMP 97.8; O2SAT 94
[2018-03-02] MEDS: INSULIN ASPART SUPPLEMENTAL SCALE SQ SCH ×2 (08:00→11:14)
[2018-03-02] MEDS: PANTOPRAZOLE SOD 40 MG DELAYED RELEASE TAB PO SCH (08:31)
[2018-03-02] MEDS: DOCUSATE SODIUM 50 MG/SENNA 8.6 MG TAB PO SCH (08:31)
[2018-03-02] MEDS: SODIUM CHLORIDE 0.9% FLUSH 10 ML FLUSH IV FLUSH SCH (08:31)
[2018-03-02 09:31] VITALS: O2SAT 96
--- NOTE | 2018-03-02 10:13 | HHI.PR ---
Subjective Remarks no complains seen with family at bedside no chest pain or shortness of breath, no N/V no bleeding Objective Vitals Vital Signs Date Time Temp Pulse Resp B/P (MAP) Pulse Ox O2 Delivery O2 Flow Rate FiO2 03/02/18 09:31 96 03/02/18 08:00 97.8 55 15 174/77 (109) 94 03/02/18 07:58 Room Air 21 03/02/18 04:00 98.3 60 16 142/61 (88) 96 03/02/18 04:00 Room Air 03/02/18 04:00 98.3 60 16 142/61 (88) 96 03/02/18 03:55 68 03/02/18 00:00 97.9 57 16 159/76 (103) 95 03/01/18 23:49 58 03/01/18 23:00 Room Air 03/01/18 21:26 59 03/01/18 20:00 98.0 63 16 153/72 (99) 94 03/01/18 18:00 71 03/01/18 16:00 98.4 70 18 166/74 (104) 97 03/01/18 16:00 65 03/01/18 14:00 63 03/01/18 12:00 57 03/01/18 12:00 98.0 57 17 155/72 (99) 97 I/O 03/01/18 03/01/18 03/01/18 03/02/18 03/02/18 03/02/18 07:00 15:00 23:00 07:00 15:00 23:00 Intake Total 610 ml 720 ml Output Total 1800 ml 2000 ml 300 ml Balance -1190 ml -1280 ml -300 ml Intake Oral 480 ml 720 ml IV Total 130 ml Output Urine Total 1800 ml 2000 ml 300 ml # Bowel Movements 0 Result Diagram: 03/02/18 0615 03/02/18 0615 Imaging Last Impressions Abdomen X-Ray 02/27/18 0000 Signed Impressions: Service Date/Time: Tuesday, February 27, 2018 17:05 - CONCLUSION: No evidence of obstructive gas pattern. Charles Irving MD Abdomen/Pelvis CT 02/26/18 1549 Signed Impressions: Service Date/Time: Monday, February 26, 2018 16:00 - CONCLUSION: 1. Mildly dilated loops of distal small bowel. There is air in the colon. Cannot exclude a partial small bowel obstruction. No acute bony abnormalities. 2. Small pericardial effusion. Taras Solorzano MD Lung Scan-V Nuclear Medicine 02/26/18 0000 Signed Impressions: Service Date/Time: Monday, February 26, 2018 17:23 - CONCLUSION: Low probability for pulmonary embolus. Jamie Chopra MD Head CT 02/26/18 0000 Signed Impressions: Service Date/Time: Monday, February 26, 2018 18:57 - CONCLUSION: No acute disease. Jamie Chopra MD Chest X-Ray 02/26/18 0000 Signed Impressions: Service Date/Time: Monday, February 26, 2018 14:55 - CONCLUSION: 1. Mild cardiomegaly. Taras Solorzano MD Carotid Artery Ultrasound 02/26/18 0000 Signed Impressions: Service Date/Time: Monday, February 26, 2018 19:30 - CONCLUSION: No evidence for hemodynamically significant stenosis. Jamie Chopra MD Objective Remarks awake and alert, no acute distress anicteric lungs- no rales regular rhythm no murmur abdomen soft, nontender good bowel sounds extremities no edema Procedures None A/P Problem List: (1) Hypotension ICD Code: I95.9 - Hypotension, unspecified Status: Acute (2) GI bleed ICD Code: K92.2 - Gastrointestinal hemorrhage, unspecified Status: Acute (3) Elevated troponin ICD Code: R74.8 - Abnormal levels of other serum enzymes (4) Partial small bowel obstruction ICD Code: K56.600 - Partial intestinal obstruction, unspecified as to cause (5) Syncope ICD Code: R55 - Syncope and collapse Status: Acute (6) Atrial fibrillation ICD Code: I48.91 - Unspecified atrial fibrillation Status: Acute (7) Acute renal failure superimposed on stage 2 chronic kidney disease ICD Code: N17.9 - Acute kidney failure, unspecified; N18.2 - Chronic kidney disease, stage 2 (mild) Assessment and Plan 1. GI bleed: Appreciate gastroenterology recommendations. Status post EGD/ colonoscopy, which showed esophagitis, gastritis. No further active bleeding noted. H&H have remained stable. Continue Protonix. daily 2. Syncopal episode: Likely secondary to GI bleed. CT of the brain shows no acute change. Carotid ultrasound negative for hemodynamically significant stenosis. 3. Atrial fibrillation with RVR: Appreciate cardiology recommendations. Now in sinus rhythm. Unable to fully anticoagulate secondary to acute GI bleed. 4 History of hypertension- now with elevated readings- initially on admission low due to GI. Start Diovan at 40 mg daily d/w family- she was on Diovan/HCTZ 320/25. OP ff up with PCP. BP monitorinfg 4. Partial small bowel obstruction: Seen on CT. resolved Heart healthy diet per GI. 5. Acute kidney injury superimposed on chronic kidney disease stage II: Improving with IV fluids.- OP ff up with PCP. encourage pof luids DC today PCP ff up/GI ff up Problem Qualifiers (1) Hypotension: Qualified Codes: I95.9 - Hypotension, unspecified (2) GI bleed: Qualified Codes: K92.2 - Gastrointestinal hemorrhage, unspecified (3) Syncope: Qualified Codes: R55 - Syncope and collapse (4) Atrial fibrillation: Qualified Codes: I48.91 - Unspecified atrial fibrillation (5) Acute renal failure superimposed on stage 2 chronic kidney disease: Qualified Codes: N17.9 - Acute kidney failure, unspecified; N18.2 - Chronic kidney disease, stage 2 (mild) Anastacio Alex MD Mar 02, 2018 10:13
--- NOTE | 2018-03-02 10:15 | HHI.PR ---
Objective Vitals Vital Signs Result Diagram: 03/02/18 0615 03/02/18 0615 Procedures None A/P Problem List: (1) Hypotension ICD Code: I95.9 - Hypotension, unspecified Status: Acute (2) GI bleed ICD Code: K92.2 - Gastrointestinal hemorrhage, unspecified Status: Acute (3) Elevated troponin ICD Code: R74.8 - Abnormal levels of other serum enzymes (4) Partial small bowel obstruction ICD Code: K56.600 - Partial intestinal obstruction, unspecified as to cause (5) Syncope ICD Code: R55 - Syncope and collapse Status: Acute (6) Atrial fibrillation ICD Code: I48.91 - Unspecified atrial fibrillation Status: Acute (7) Acute renal failure superimposed on stage 2 chronic kidney disease ICD Code: N17.9 - Acute kidney failure, unspecified; N18.2 - Chronic kidney disease, stage 2 (mild) Problem Qualifiers (1) Hypotension: Qualified Codes: I95.9 - Hypotension, unspecified (2) GI bleed: Qualified Codes: K92.2 - Gastrointestinal hemorrhage, unspecified (3) Syncope: Qualified Codes: R55 - Syncope and collapse (4) Atrial fibrillation: Qualified Codes: I48.91 - Unspecified atrial fibrillation (5) Acute renal failure superimposed on stage 2 chronic kidney disease: Qualified Codes: N17.9 - Acute kidney failure, unspecified; N18.2 - Chronic kidney disease, stage 2 (mild) Anastacio Alex MD Mar 02, 2018 10:15
--- NOTE | 2018-03-02 10:18 | HHI.FF ---
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 My clinical findings support the need for the requested home health care services because: Ltd mobility - disease progression Need for psychosocial assistance I certify that my clinical findings support that this patient is homebound because: Need for psychosocial assistance Anastacio Alex MD Mar 02, 2018 10:18
[2018-03-02] MEDS ORDERED: DIOV40TA PO (10:30)
[2018-03-02] MEDS ORDERED: PANT40TA3 PO (10:30)
[2018-03-02] MEDS ORDERED: VALSARTAN 40 MG TAB PO SCH (10:30)
[2018-03-02 11:27] VITALS: BP 152/69; PULSE 63; RESP 18; TEMP 97.4; O2SAT 96
--- NOTE | 2018-03-02 19:03 | HHI.DS ---
Discharge Summary Admission Date Feb 26, 2018 at 17:46 Discharge Date: Mar 02, 2018 Admitting Diagnosis Syncope; GI Bleed; Pancreatitis; AFib RVR; Elevated Trop; HypoK (1) Hypotension ICD Code: I95.9 - Hypotension, unspecified Diagnosis: Principal Status: Acute (2) GI bleed ICD Code: K92.2 - Gastrointestinal hemorrhage, unspecified Diagnosis: Principal Status: Acute (3) Elevated troponin ICD Code: R74.8 - Abnormal levels of other serum enzymes Diagnosis: Secondary (4) Partial small bowel obstruction ICD Code: K56.600 - Partial intestinal obstruction, unspecified as to cause Diagnosis: Secondary (5) Syncope ICD Code: R55 - Syncope and collapse Diagnosis: Secondary Status: Acute (6) Atrial fibrillation ICD Code: I48.91 - Unspecified atrial fibrillation Diagnosis: Secondary Status: Chronic (7) Acute renal failure superimposed on stage 2 chronic kidney disease ICD Code: N17.9 - Acute kidney failure, unspecified; N18.2 - Chronic kidney disease, stage 2 (mild) Procedures None Brief History - From Admission 87-year-old female with known history of hypertension, hyperlipidemia , diabetes who was brought to the hospital because of a syncopal episode. Patient was in a normal state of health when she was out to lunch with her family. They just walked into the restaurant and ordered her dinner they sat down and was sitting at the table for approximately 30 minutes and her daughter- in-law noticed that she was falling forward into the right. She caught her and Her from falling forward completely she did not hit her head or fall to the ground. She looked at her and noticed that her eyes rolled in the back of her head. Patient was lowered to the ground and that is when her son came out of the restroom and noticed his mother unconscious on the ground. There was no tonic-clonic movements, no extremity shaking. No loss of bladder control, however did have complete loss of bowel. They indicate that the patient lost consciousness for approximately 1 minute and when she was awake she became more alert. There is no significant episode of confusion. EMS was called and on initial presentation her blood pressure was 152/108. The patient did not want to be transferred here by ambulance so the family brought her to the emergency department. When the patient came into the emergency department she had significant tachycardia with a heart rate in 140s with atrial fibrillation RVR with low blood pressure 92/53. Patient was found to have been soiled with stool that was black in color which immediately turned positive Hemoccult. It was suspected that the patient may be in hypovolemic shock from acute GI bleed. Nursing staff and ER physician indicated that patient had the look and smell of acute GI bleed. Stat blood was released and patient was transfused 1 unit of packed red blood cells. Patient was started on immediate IV fluid bolus with initial improvement of her blood pressure, however when the fluid was complete her blood pressure dropped again. Blood pressure is doing much better at this time after infusion of packed red blood cell. Further workup indicated multiple other etiologies with CT scan showing partial small bowel obstruction, equivocal troponin elevation, acute renal failure superimposed on chronic kidney disease stage II, elevated lipase level. Due to patient's clinical condition with possible acute hypovolemic shock secondary to GI bleed patient will be admitted to critical care to the ICU for closer monitoring. CBC/BMP: 03/02/18 0615 03/02/18 0615 Significant Findings Laboratory Tests Test 02/28/18 02:10 03/01/18 10:36 03/02/18 06:15 Random Glucose 113 MG/DL (74-106) 113 MG/DL (74-106) 109 MG/DL (74-106) Calcium Level 7.9 MG/DL (8.5-10.1) Sodium Level 146 MEQ/L (136-145) Chloride Level 115 MEQ/L (98-107) Estimat Glomerular Filtration Rate 76 ML/MIN (>89) 60 ML/MIN (>89) 76 ML/MIN (>89) Neutrophils (%) (Auto) 75.6 % (16.0-70.0) Monocytes (%) (Auto) 9.1 % (0.0-8.0) 10.6 % (0.0-8.0) Blood Urea Nitrogen 19 MG/DL (7-18) Imaging Last Impressions Abdomen X-Ray 02/27/18 0000 Signed Impressions: Service Date/Time: Tuesday, February 27, 2018 17:05 - CONCLUSION: No evidence of obstructive gas pattern. Charles Irving MD Abdomen/Pelvis CT 02/26/18 1549 Signed Impressions: Service Date/Time: Monday, February 26, 2018 16:00 - CONCLUSION: 1. Mildly dilated loops of distal small bowel. There is air in the colon. Cannot exclude a partial small bowel obstruction. No acute bony abnormalities. 2. Small pericardial effusion. Taras Solorzano MD Lung Scan-V Nuclear Medicine 02/26/18 0000 Signed Impressions: Service Date/Time: Monday, February 26, 2018 17:23 - CONCLUSION: Low probability for pulmonary embolus. Jamie Chopra MD Head CT 02/26/18 0000 Signed Impressions: Service Date/Time: Monday, February 26, 2018 18:57 - CONCLUSION: No acute disease. Jamie Chopra MD Chest X-Ray 02/26/18 0000 Signed Impressions: Service Date/Time: Monday, February 26, 2018 14:55 - CONCLUSION: 1. Mild cardiomegaly. Taras Solorzano MD Carotid Artery Ultrasound 02/26/18 0000 Signed Impressions: Service Date/Time: Monday, February 26, 2018 19:30 - CONCLUSION: No evidence for hemodynamically significant stenosis. Jamie Chopra MD PE at Discharge awake and alert lungs clear irregular rhythm abdomen soft, extremiteis no edema Pt update on day of discharge tolerating po no pain Hospital Course 1. GI bleed: Appreciate gastroenterology recommendations. Status post EGD/ colonoscopy, which showed esophagitis, gastritis. No further active bleeding noted. H&H have remained stable. Continue Protonix. daily 2. Syncopal episode: Likely secondary to GI bleed. CT of the brain shows no acute change. Carotid ultrasound negative for hemodynamically significant stenosis. 3. Atrial fibrillation with RVR: Appreciate cardiology recommendations. Now in sinus rhythm. Unable to fully anticoagulate secondary to acute GI bleed. 4 History of hypertension- now with elevated readings- initially on admission low due to GI. Start Diovan at 40 mg daily d/w family- she was on Diovan/HCTZ 320/25. OP ff up with PCP. BP monitorinfg 4. Partial small bowel obstruction: Seen on CT. resolved Heart healthy diet per GI. 5. Acute kidney injury superimposed on chronic kidney disease stage II: Improving with IV fluids.- OP ff up with PCP. encourage pof luids DC today PCP ff up/GI ff up Pt Condition on Discharge: Stable Discharge Disposition: Disch w/ Home Health Serv Discharge Time: > 30 minutes Discharge Instructions DIET: Follow Instructions for: Heart Healthy Diet Speech Therapy-Diet Recommends: Regular Activities you can perform: Weight Bearing as Vicky Activities to Avoid: Prolonged Standing, Strenuous Activity Follow up Referrals: Gastroenterology - 2 Weeks with Tez Prather MD Gastroenterology @ [facility] PCP Follow-up - 03/02/18 with [facility] PCP Follow-up @ [facility] New Orders: COMP MET PROF (CMP) - 03/07/18 New Medications: Pantoprazole (Pantoprazole) 40 Mg Tab 40 MG PO BID for esophagitis/gastritis for 30 Days, #60 TAB Valsartan (Diovan) 40 Mg Tab 40 MG PO DAILY for HTN for 30 Days, #30 TAB Discontinued Medications: Valsartan-Hydrochlorothiazide (Valsartan-Hydrochlorothiazide) 320-12.5 Mg Tab 1 TAB PO DAILY for Blood Pressure Management, #30 TAB 0 Refills Anastacio Alex MD Mar 02, 2018 19:03
== END 2018-03-02 11:33 | disposition home health service (06) | DRG 378 ==
LOC: PHED 13:36 → PHEDA 17:46 → PHICU 20:15 → HIMN 02-27 14:15 → N04A 03-01 20:25
PROVIDERS: ADMIT Internal Medicine; ATTEND Internal Medicine
PROC: 0DB68ZX Excision of Stomach, Via Natural or Artificial Opening Endoscopic, Diagnostic (ICD-10-PCS; principal; 2018-02-26)
PROC: 30233N1 Transfusion of Nonautologous Red Blood Cells into Peripheral Vein, Percutaneous Approach (ICD-10-PCS; 2018-02-26)
DX: K92.2 Gastrointestinal hemorrhage, unspecified (principal); K56.600 Partial intestinal obstruction, unspecified as to cause; N17.9 Acute kidney failure, unspecified; I95.9 Hypotension, unspecified; I48.91 Unspecified atrial fibrillation; F03.90 Unspecified dementia, unspecified severity, without behavioral disturbance, psychotic disturbance, mood disturbance, and anxiety; R55 Syncope and collapse; I12.9 Hypertensive chronic kidney disease with stage 1 through stage 4 chronic kidney disease, or unspecified chronic kidney disease; N18.2 Chronic kidney disease, stage 2 (mild); K29.70 Gastritis, unspecified, without bleeding; K20.9 Esophagitis, unspecified; E78.5 Hyperlipidemia, unspecified; R74.8 Abnormal levels of other serum enzymes; R00.0 Tachycardia, unspecified; H91.90 Unspecified hearing loss, unspecified ear; Z87.891 Personal history of nicotine dependence; Z85.43 Personal history of malignant neoplasm of ovary; Z92.21 Personal history of antineoplastic chemotherapy
CPT/HCPCS: 36430; 70450; 71045; 74018; 74176; 78582; 80048; 80053; 80061; 81001; 82948; 83036; 83605; 83690; 83735; 84100; 84443; 84484; 85014; 85018; 85025; 85610; 85730; 86850; 86900; 86901; 86920; 87040; 87641; 88305; 88312; 93005; 93306; 93880; 96361; 96365; 96366; 96375; A9540; A9567; C9113; J0330; J0696; J2405; J3480; J7030; J7050; J7120; P9016

== ENCOUNTER 2018-08-04 16:58 | Observation (INO) ==
--- NOTE | 2018-08-04 17:58 | ED ---
HPI General Chief Complaint: Nausea/Vomiting/Diarrhea Stated Complaint: Vomitting,Stomach Pain Time Seen by Provider: 08/04/18 19:04 Source: patient Mode of arrival: ambulatory Limitations: no limitations History of Present Illness HPI narrative: 88 years old female complains of abdominal pain with nausea vomiting. Patient states that the symptoms started this morning. Patient states that the abdominal pain and cramping pain diffuse over the abdomen. Patient denies any pain radiation. Patient states the pain is much better this afternoon compared to this morning. Patient denies any fever chills. Patient denies any headache. Patient denies any chest pain or shortness of breath. Patient denies any dysuria frequency. Patient denies any back pain. Patient has history of hypertension, diabetes, hyperlipidemia, GI bleed, atrial fibrillation and chronic kidney disease. complaint: abdominal pain Onset (ago): hour(s) Pain Consistency: intermittent Location: diffuse Severity: mild Severity scale (1-10): 4 Quality: cramping Radiation: none Migration to: no migration Relieving factors: nothing Exacerbating factors: nothing Associated symptoms: nausea and vomiting Related Data Home Medications Medication Instructions Recorded Confirmed cholecalciferol (vitamin D3) 5,000 unit PO DAILY 08/04/18 cyanocobalamin (vitamin B-12) 5,000 mcg SUBLINGUAL DAILY 08/04/18 08/04/18 multivitamin 1 tab PO DAILY 08/04/18 08/04/18 pantoprazole 40 mg PO BID 08/04/18 08/04/18 valsartan 40 mg PO DAILY 08/04/18 08/04/18 Allergies Allergy/AdvReac Type Severity Reaction Status Date / Time codeine Allergy Mild Nausea Unverified 08/04/18 17:23 Review of Systems ROS: all other systems reviewed are negative [facility] Medical History Medical History Dementia (Acute) Hx of hysterectomy (Acute) Hypertension (Acute) Reflux gastritis (Acute) Surgical History Surgical History Hx of cholecystectomy (Acute) Hx of tonsillectomy (Acute) Social History Social History Substance History: No History of Abuse Second Hand Smoke Exposure: No Smoking Status: Never smoker How Often Do You Have a Drink Containing Alcohol: Never Recent Travel in [facility] within the Last 8 Weeks: No Recent Out of Country Travel within the Last 8 Weeks: No Immunization History Tetanus Immunization: Unsure Hx Influenza Vaccine This Season: Yes Exam Narrative Exam Narrative: GENERAL: Well-nourished, well-developed patient. SKIN: Focused skin assessment warm/dry. HEAD: Normocephalic. EYES: No scleral icterus. No injection or drainage. NECK: Supple, trachea midline. No JVD or lymphadenopathy. CARDIOVASCULAR: Regular rate and rhythm without murmurs, gallops, or rubs. RESPIRATORY: Breath sounds equal bilaterally. No accessory muscle use. GASTROINTESTINAL: Abdomen soft, non-tender, nondistended. MUSCULOSKELETAL: No cyanosis, or edema. BACK: Nontender without obvious deformity. No CVA tenderness. Neurologic exam normal. Course Initial Documented Vital Signs Temperature 97.8 F 08/04/18 17:21 Pulse Rate 67 08/04/18 17:21 Respiratory Rate 16 08/04/18 17:21 Blood Pressure 146/90 H 08/04/18 17:21 Pulse Oximetry 95 08/04/18 17:21 Last Documented Vital Signs Temperature 97.8 F 08/04/18 17:21 Pulse Rate 57 L 08/04/18 18:05 Respiratory Rate 16 08/04/18 18:05 Blood Pressure 151/78 H 08/04/18 18:05 Pulse Oximetry 95 08/04/18 18:05 Sign Out Sign Out Data: Patient Sign Out occurred on 08/04/18 at 19:04. Patient's care was discussed, and care was transferred from Frank Urias to Rubens Hamilton MD. Sign Out Comment: Check CT scan abdomen pelvis. Last updated by Frank Urias MD at 08/04/18 19:02 Post-Handoff Eval: 88-year-old woman, nausea vomiting abdominal pain. CT scan shows some fluid- filled small bowel with inflammation suggesting enteritis or possible early obstruction. No diarrhea. She does have some pyuria. This is likely early gastroenteritis, early partial obstruction, or UTI with vomiting. She feeling improved at this time. Will recommend observation, p.o. challenge, antibiotics for UTI. Spoke with Dr. Zepeda, will admit the patient. Medical Decision Making MDM Narrative Medical decision making narrative: 88 years old female with abdominal pain, nausea vomiting. Normal saline solution 1 25 cc an hour. Zofran 4 mg IV. Medical Screen Exam Complete: Yes Emergency Medical Condition: Yes Differential Diagnosis Differential Diagnosis: Differential diagnosis including gastroenteritis, gastritis, PUD, pancreatitis, colitis, UTI, pyelonephritis, nephrolithiasis, dehydration, electrolyte imbalance. Lab Data Result diagrams: 08/04/18 18:15 08/04/18 18:15 Lab Results 08/04/18 08/04/18 08/04/18 Range/Units 18:15 18:15 18:15 CBC w Diff Auto diff final WBC 9.9 (4.0-11.0) th/mm3 RBC 4.82 (4.00-5.30) mil/mm3 Hgb 14.5 (11.6-15.3) gm/dL Hct 43.2 (35.0-46.0) % MCV 89.6 (80.0-100.0) fL MCH 30.2 (27.0-34.0) pg MCHC 33.7 (32.0-36.0) % RDW 14.1 (11.6-17.2) % Plt Count 325 (150-450) th/mm3 MPV 7.9 (7.0-11.0) fL Neut % (Auto) 86.0 H (16.0-70.0) % Lymph % (Auto) 7.2 L (9.0-44.0) % [place] % (Auto) 6.0 (0.0-8.0) % Eos % (Auto) 0.3 (0.0-4.0) % Baso % (Auto) 0.5 (0.0-2.0) % Neut # (Auto) 8.6 H (1.8-7.7) th/mm3 Lymph # (Auto) 0.7 L (1.0-4.8) th/mm3 [place] # (Auto) 0.6 (0.0-0.9) th/mm3 Eos # (Auto) 0.0 (0.0-0.4) th/mm3 Baso # (Auto) 0.0 (0.0-0.2) th/mm3 WBC Differential . Differential Comment . PT 10.0 (9.8-11.6) sec INR 1.0 Ratio APTT 24.9 (24.3-30.1) sec Sodium 140 (136-145) meq/L Potassium 4.3 (3.5-5.1) meq/L Chloride 105 (98-107) meq/L Carbon Dioxide 25.7 (21.0-32.0) meq/L Anion Gap 9 (5-15) meq/L BUN 21 H (7-18) mg/dL Creatinine 0.83 (0.50-1.00) mg/dL Estimated GFR 65 L (>89) mL/min Random Glucose 106 (74-106) mg/dL Calcium 8.7 (8.5-10.1) mg/dL Total Bilirubin 0.4 (0.2-1.0) mg/dL AST 32 (15-37) U/L ALT 32 (10-53) U/L Alkaline Phosphatase 94 (45-117) U/L Total Protein 6.8 (6.4-8.2) g/dL Albumin 3.3 L (3.4-5.0) g/dL Lipase 228 (73-393) U/L Urine Color (Yellw/Straw) Urine Clarity (Clear) Urine pH (5.0-8.5) Ur Specific [place] (1.002-1.035) Urine Protein (Neg-Trace) mg/dL Urine Glucose (UA) (Negative) mg/dL Urine Ketones (Negative) mg/dL Urine Occult Blood (Negative) Urine Nitrate (Negative) Urine Bilirubin (Negative) Urine Urobilinogen (Less than 2) mg/dL Ur Leukocyte Esterase (Negative) Urine RBC (0-3) /hpf Urine WBC (0-5) /hpf Ur Squamous Epith Cells (0-5) /hpf Urine Bacteria (None) /hpf Micro UA Comment Ur Microscopic Review Urine Culture Comments 08/04/18 Range/Units 18:15 CBC w Diff WBC (4.0-11.0) th/mm3 RBC (4.00-5.30) mil/mm3 Hgb (11.6-15.3) gm/dL Hct (35.0-46.0) % MCV (80.0-100.0) fL MCH (27.0-34.0) pg MCHC (32.0-36.0) % RDW (11.6-17.2) % Plt Count (150-450) th/mm3 MPV (7.0-11.0) fL Neut % (Auto) (16.0-70.0) % Lymph % (Auto) (9.0-44.0) % [place] % (Auto) (0.0-8.0) % Eos % (Auto) (0.0-4.0) % Baso % (Auto) (0.0-2.0) % Neut # (Auto) (1.8-7.7) th/mm3 Lymph # (Auto) (1.0-4.8) th/mm3 [place] # (Auto) (0.0-0.9) th/mm3 Eos # (Auto) (0.0-0.4) th/mm3 Baso # (Auto) (0.0-0.2) th/mm3 WBC Differential Differential Comment PT (9.8-11.6) sec INR Ratio APTT (24.3-30.1) sec Sodium (136-145) meq/L Potassium (3.5-5.1) meq/L Chloride (98-107) meq/L Carbon Dioxide (21.0-32.0) meq/L Anion Gap (5-15) meq/L BUN (7-18) mg/dL Creatinine (0.50-1.00) mg/dL Estimated GFR (>89) mL/min Random Glucose (74-106) mg/dL Calcium (8.5-10.1) mg/dL Total Bilirubin (0.2-1.0) mg/dL AST (15-37) U/L ALT (10-53) U/L Alkaline Phosphatase (45-117) U/L Total Protein (6.4-8.2) g/dL Albumin (3.4-5.0) g/dL Lipase (73-393) U/L Urine Color Yellow (Yellw/Straw) Urine Clarity Slightly cloudy (Clear) Urine pH 6.0 (5.0-8.5) Ur Specific [place] 1.010 (1.002-1.035) Urine Protein Negative (Neg-Trace) mg/dL Urine Glucose (UA) Negative (Negative) mg/dL Urine Ketones Trace H (Negative) mg/dL Urine Occult Blood Negative (Negative) Urine Nitrate Positive H (Negative) Urine Bilirubin Negative (Negative) Urine Urobilinogen 0.2 (Less than 2) mg/dL Ur Leukocyte Esterase Large H (Negative) Urine RBC 0-3 (0-3) /hpf Urine WBC 51-189 H (0-5) /hpf Ur Squamous Epith Cells 0-5 (0-5) /hpf Urine Bacteria Many H (None) /hpf Micro UA Comment Culture indicated Ur Microscopic Review Microscopic reviewed Urine Culture Comments Culture indicated Imaging Data Radiologist's impression: Abdomen/Pelvis CT 08/04/18 17:48 CONCLUSION: 1. Mild small bowel dilatation and wall thickening suggesting mild enteritis and possible mild small bowel obstruction. Clinical correlation is recommended. The colon is nondilated. 2. Small hiatal hernia. 3. Tiny pericardial effusion. 4. Tiny bilateral pleural effusions. 5. 9 mm medial left lobe hepatic cyst. 6. 6.9 cm left renal cyst. 7. Degenerative changes and scoliosis of the thoracolumbar spine. 8. Small hiatal hernia. Discharge Plan Discharge Disposition Patient Disposition: 30 Still Patient Physicians Team ED Provider: Rubens Hamilton Primary Care Provider: Murray Okeefe Attending Provider: Sally Zepeda Discharge Interventions Interventions: Vital Signs Last Done: 08/04/18 18:05 Status ED Status: Admitted Observation Patient
[2018-08-04] MEDS ORDERED: Sod Chloride 0.9% Inj 1,000 ML IV.CONT SCH (18:00)
[2018-08-04 18:25] LABS: Bilirubin,Urine Negative (Negative); Clarity,Urine Slightly Cloudy (Clear); Color,Urine Yellow (Yellw/Straw); Glucose,Urine (UA) Negative (Negative); Leukocyte Esterase,Urine Large (Negative); Nitrite,Urine Positive (Negative); Urobilinogen,Urine 0.2 mg/dL (Less than 2)
[2018-08-04 18:32] LABS: Baso % (Auto) 0.5 % (0.0-2.0); Eos % (Auto) 0.3 % (0.0-4.0); Hematocrit 43.2 % (35.0-46.0); Hemoglobin 14.5 gm/dL (11.6-15.3); Lymph # (Auto) 0.7 th/mm3 (1.0-4.8); Lymph % (Auto) 7.2 % (9.0-44.0); Mean Corpuscular HGB Conc 33.7 % (32.0-36.0); Mean Corpuscular Hemoglobin 30.2 pg (27.0-34.0); Mean Corpuscular Volume 89.6 fL (80.0-100.0); Mean Platelet Volume 7.9 fL (7.0-11.0); Mono # (Auto) 0.6 th/mm3 (0.0-0.9); Neut # (Auto) 8.6 th/mm3 (1.8-7.7); Platelet Count 325 th/mm3 (150-450); Red Blood Count 4.82 mil/mm3 (4.00-5.30); Red Cell Distribution Width 14.1 % (11.6-17.2); White Blood Count 9.9 th/mm3 (4.0-11.0)
[2018-08-04 18:33] LABS: Bacteria,Urine Many /hpf; RBC,Urine 0-3 /hpf (0-3); Squamous Epithelial Cell,Urine 0-5 /hpf (0-5); WBC,Urine 51-189 /hpf (0-5)
[2018-08-04 18:34] LABS: Chloride 105 meq/L (98-107); Potassium 4.3 meq/L (3.5-5.1); Sodium 140 meq/L (136-145)
[2018-08-04 18:37] LABS: Calcium 8.7 mg/dL (8.5-10.1)
[2018-08-04 18:38] LABS: Albumin 3.3 g/dL (3.4-5.0); Anion Gap 9 meq/L (5-15); Blood Urea Nitrogen 21 mg/dL (7-18); Carbon Dioxide 25.7 meq/L (21.0-32.0); Glucose,Random 106 mg/dL (74-106); Lipase 228 U/L (73-393)
[2018-08-04 18:40] LABS: Activated Partial Thrombo Time 24.9 sec (24.3-30.1)
[2018-08-04 18:41] LABS: Alanine Aminotransferase 32 U/L (10-53); Aspartate Aminotransferase 32 U/L (15-37); Glomerular Filtration Rate 65 mL/min (>89)
[2018-08-04 18:42] LABS: Total Protein 6.8 g/dL (6.4-8.2)
[2018-08-04 18:44] LABS: Alkaline Phosphatase 94 U/L (45-117)
--- NOTE | 2018-08-04 19:14 | CT ---
EXAM DATE: 08/04/2018 7:02 PM EDT AGE/SEX: 88 years / Female INDICATIONS: Diffuse abdominal pain. Nausea and vomiting. CLINICAL DATA: This is the patient's initial encounter. Patient reports that signs and symptoms have been present for 1 day and indicates a pain score of 4/10. MEDICAL/SURGICAL HISTORY: Gastroesophageal reflux disease. Hypertension. Dementia. Gastritis . Colon cancer. Hysterectomy. Cholecystectomy. Colon resection. ORAL CONTRAST: No oral contrast ingested. RADIATION DOSE: 6.86 CTDI (mGy) COMPARISON: [facility], CT ABDOMEN & PELVIS W/O CONTRAST, 02/26/2018. [facility], CT ABDOMEN AND PELVIS W/ CO NTRAST, 03/12/2016. . TECHNIQUE: Multiple contiguous axial images were obtained through the abdomen and pelvis following b olus infusion of 85 ml Omnipaque 350 (iohexol) nonionic water-soluble contrast as a single exam dos e. No oral contrast ingested. Using automated exposure control and adjustment of the mA and/or kV ac cording to patient size, radiation dose was kept as low as reasonably achievable to obtain optimal di agnostic quality images. DICOM format image data is available electronically for review and comparis on. FINDINGS: Lower Lungs: Tiny pericardial effusion is noted. Tiny bilateral pleural effusions are noted. Minimal posterior bibasilar atelectatic changes are noted. Liver: There is a tiny hepatic cyst measuring 9 mm within the anterior aspect of the left lobe medial ly which is stable. The patient is status post cholecystectomy. No significant biliary ductal dilatat ion is noted. Spleen: Homogeneous density without enlargement. Pancreas: Unremarkable without mass or calcification. Kidneys: Normal in size and shape. No evidence of solid mass or hydronephrosis. There is a stable le ft renal cyst measuring 6.9 cm. Adrenal Glands: Unremarkable. Aorta: The aorta and proximal iliac vessels are grossly unremarkable without aneurysmal dilation. Bowel/Mesentery: A small hiatal hernia is noted. There is mild small bowel dilatation and wall thicke mary suggesting mild enteritis and possible mild small bowel obstruction. Clinical correlation is rec ommended. The colon is nondilated. Abdominal Wall: Intact. Retroperitoneum: No evidence of adenopathy in the retrocrural, para-aortic, or deep pelvic regions. Bladder: Contours are smooth. Reproductive Organs: No abnormal masses or calcifications seen. Inguinal: The inguinal region is unremarkable without evidence of adenopathy. Bony Structures: Degenerative changes and scoliosis of the thoracolumbar spine are noted. CONCLUSION: 1. Mild small bowel dilatation and wall thickening suggesting mild enteritis and possible mild small bowel obstruction. Clinical correlation is recommended. The colon is nondilated. 2. Small hiatal hernia. 3. Tiny pericardial effusion. 4. Tiny bilateral pleural effusions. 5. 9 mm medial left lobe hepatic cyst. 6. 6.9 cm left renal cyst. 7. Degenerative changes and scoliosis of the thoracolumbar spine. 8. Small hiatal hernia. Electronically signed by: Sher Payan MD 08/04/2018 7:13 PM EDT
[2018-08-04] MEDS ORDERED: Bisacodyl 10 MG Supp RECTAL PRN (19:42)
[2018-08-04] MEDS ORDERED: Acetaminophen 325 MG Tablet PO PRN (19:42)
[2018-08-04] MEDS ORDERED: Diatrizoate Meglum/Diatrizoate Sod Liq 120 ML Bottle (for RAD diag) PO ONE (19:44)
[2018-08-04] MEDS: Sod Chloride 0.9% Inj 1,000 ML IV.CONT SCH (20:01)
[2018-08-04] MEDS: Senna/Docusate Sodium 8.6/50 MG Tablet PO SCH (20:54)
[2018-08-04] MEDS: Heparin - SQ 10,000 UNITS/ML Vial SQ SCH (20:56)
[2018-08-05 06:35] LABS: Potassium 3.6 meq/L (3.5-5.1)
[2018-08-05 06:38] LABS: Carbon Dioxide 26.8 meq/L (21.0-32.0)
[2018-08-05 06:47] LABS: Baso % (Auto) 0.6 % (0.0-2.0); Eos # (Auto) 0.1 th/mm3 (0.0-0.4); Eos % (Auto) 1.4 % (0.0-4.0); Hematocrit 35.3 % (35.0-46.0); Hemoglobin 12.4 gm/dL (11.6-15.3); Lymph # (Auto) 1.3 th/mm3 (1.0-4.8); Lymph % (Auto) 26.4 % (9.0-44.0); Mean Corpuscular HGB Conc 35.1 % (32.0-36.0); Mean Corpuscular Hemoglobin 31.9 pg (27.0-34.0); Mean Platelet Volume 8.3 fL (7.0-11.0); Mono # (Auto) 0.4 th/mm3 (0.0-0.9); Mono % (Auto) 8.8 % (0.0-8.0); Neut # (Auto) 3.3 th/mm3 (1.8-7.7); Neut % (Auto) 62.8 % (16.0-70.0); Platelet Count 260 th/mm3 (150-450); Red Blood Count 3.88 mil/mm3 (4.00-5.30); Red Cell Distribution Width 14.3 % (11.6-17.2); White Blood Count 5.1 th/mm3 (4.0-11.0)
[2018-08-05] MEDS: Senna/Docusate Sodium 8.6/50 MG Tablet PO SCH ×2 (08:23→22:12)
[2018-08-05] MEDS: Heparin - SQ 10,000 UNITS/ML Vial SQ SCH ×2 (08:23→22:12)
[2018-08-05] MEDS ORDERED: VALSARTAN 40 MG PO SCH (09:00)
--- NOTE | 2018-08-05 10:55 | XR ---
EXAM DATE: 08/05/2018 10:47 AM EDT AGE/SEX: 88 years / Female INDICATIONS: Obstruction. CLINICAL DATA: This is the patient's subsequent encounter. Patient reports that signs and symptoms h ave been present for 2 days and indicates a pain score of 0/10. MEDICAL/SURGICAL HISTORY: . Gastroesophageal reflux disease. Hypertension. Dementia. Gastritis. Colon cancer. . Hysterectomy. Cholecystectomy. Colon resection. COMPARISON: [facility] [place], ABDOMEN KUB ONLY, 02/27/2018. . FINDINGS: Multiple surgical clips are seen in the abdomen. Mild compensated cardiomegaly with minimal parental changes left lung base Bowel gas pattern unremarkable. There is no free air or obstruction. Scoliosis and moderate degenerative changes. CONCLUSION: Do not see evidence for an obstruction. Electronically signed by: Fernandez Del Cid MD 08/05/2018 10:54 AM EDT
[2018-08-05] MEDS: Sod Chloride 0.9% Inj 1,000 ML IV.CONT SCH (11:03)
--- NOTE | 2018-08-05 13:32 | P.HP ---
History of Present Illness Primary Care Physician: Murray Okeefe MD Chief Complaint: Abdominal pain with nausea vomiting History of Present Illness: 88-year-old female with known history of dementia, hypertension who presented to the hospital for evaluation of nausea, vomiting, abdominal pain. Patient does have pretty good dementia and is orientated to person, daughter, date of , city. Patient does not know why she came to the hospital she thinks she came here because she had some dizziness. Medical records indicate the patient came here for abdominal pain with nausea and vomiting that started yesterday morning. It was described as a crampy diffuse abdominal pain without any radiation. Patient had workup done emergency department with CT scan that did show small bowel dilatation and wall thickening suggestive of mild enteritis and possible mild small bowel obstruction. Upon evaluating patient's morning she denies any abdominal pain. States that she is hungry and would like to eat. Laboratory studies do not indicate any acute abnormality. Patient cannot remember the last time she had a bowel movement. - Diagnosis (1) Enteritis (2) Small bowel obstruction (3) Urinary tract infection Review of Systems unobtainable due to mental status Gastrointestinal: Reports abdominal pain, Reports nausea, Reports vomiting PMFSH - History History Provided By: Patient, Friend - Medical History Medical History: Medical History (Last Reviewed 08/04/18 @ 17:56 by Frank Urias MD) Dementia Hypertension Reflux gastritis - Surgical History Surgical History: Surgical History (Last Updated 08/05/18 @ 13:31 by LISETTE Daniels) Hx of cholecystectomy Hx of tonsillectomy - Family History Family History: Family History (Last Updated 08/05/18 @ 13:31 by LISETTE Daniels) Other Family history unobtainable - Tobacco History Second Hand Smoke Exposure: No Tobacco Use In Past 30 Days: No Smoking Status: Former smoker - Alcohol History How Often Do You Have a Drink Containing Alcohol: Never - Substance Use History Substance History: No History of Abuse - Travel History Recent Travel in the [place] Within the Last 8 Weeks: No Recent Travel Out of the Country Within the Last 8 Weeks: No - Immunization History Tetanus Immunization: Unsure Hx Influenza Vaccine This Season: Yes Medications and Allergies Active Medications: Active Medications Acetaminophen (Tylenol) 650 mg PO Q4H PRN PRN Reason: Temp > 100.4 Al Hydroxide/Mg Hydroxide (Milk Of Magnesia Liq) 30 ml PO Q12H PRN PRN Reason: Mild Constipation Bisacodyl (Dulcolax Supp) 10 mg RECTAL DAILY PRN PRN Reason: SEVERE CONSITIPATION Heparin Sodium (Porcine) (Heparin Inj) 5,000 units SQ Q12HR [facility] Last Admin: 08/05/18 08:23 Dose: 5,000 units Ceftriaxone Sodium 1,000 mg/ (Sodium Chloride) 100 mls @ 200 mls/hr IV.SIG Q24H [facility] Last Infusion: 08/05/18 00:45 Dose: Infused Sodium Chloride (Ns Inj) 1,000 mls @ 70 mls/hr IV.CONT .[id number] [facility] Last Admin: 08/05/18 11:03 Dose: 70 mls/hr Lactulose (Lactulose Liq) 30 ml PO DAILY PRN PRN Reason: SEVERE CONSITIPATION Ondansetron HCl (Zofran Inj) 4 mg IV.PUSH Q6H PRN PRN Reason: NAUSEA OR VOMITING Pantoprazole Sodium (Protonix) 40 mg PO BID [facility] Last Admin: 08/05/18 08:23 Dose: 40 mg Patient Own: (Valsartan 40mg Tab) 0 each PO DAILY [facility] Senna/Docusate Sodium (Vonnie-Colace) 1 tab PO BID [facility] Last Admin: 08/05/18 08:23 Dose: 1 tab Sennosides (Senokot) 17.2 mg PO Q12H PRN PRN Reason: Moderate Constipation Allergies Allergy/AdvReac Type Severity Reaction Status Date / Time codeine Allergy Mild Nausea Verified 08/04/18 19:59 Home Medications Medication Instructions Recorded Confirmed Type cholecalciferol (vitamin D3) 5,000 unit PO DAILY 08/04/18 History cyanocobalamin (vitamin B-12) 5,000 mcg SUBLINGUAL DAILY 08/04/18 08/04/18 History multivitamin 1 tab PO DAILY 08/04/18 08/04/18 History pantoprazole 40 mg PO BID 08/04/18 08/04/18 History valsartan 40 mg PO DAILY 08/04/18 08/04/18 History Exam Vital signs: Vital Signs 08/04/18 17:21 08/04/18 18:05 08/04/18 20:00 Temperature 97.8 F Pulse Rate 67 57 L Respiratory Rate 16 16 Blood Pressure 146/90 H 151/78 H Pulse Oximetry 95 95 95 08/04/18 21:00 08/04/18 21:28 08/05/18 00:00 Temperature 96.0 F L 96.9 F L Pulse Rate 60 54 L 58 L Respiratory Rate 18 16 16 Blood Pressure 142/65 H 166/74 H 148/71 H Pulse Oximetry 95 95 96 08/05/18 08:00 Temperature 96.9 F L Pulse Rate 52 L Respiratory Rate 15 Blood Pressure 151/67 H Pulse Oximetry 96 Intake & Output 08/04/18 08/05/18 08/05/18 18:59 06:59 18:59 Intake Total 1100 / 1100 1000 / 1000 Balance 1100 / 1100 1000 / 1000 Weight 60.3 kg 60.3 kg Intake: IV 1100 / 1100 1000 / 1000 NS Inj 1,000 ML @ 70 mls/hr IV. 1000 / 1000 1000 / 1000 CONT .[id number] JAKOB Rx#: [id number] Rocephin Inj 1,000 MG In NS Inj 100 / 100 100 ML @ 200 mls/hr IV.SIG Q24H JAK[facility] Rx#:[id number] Other: # Voids 3 Narrative: GENERAL: Well-developed, well-nourished, in no acute distress. alert and orientated person, daughter, city, date of . She is not orientated to time , year, day of the week. HEENT: Head is normocephalic without any lesions or masses noted. Facial features are symmetric. Eyes: Pupils equal round reactive to light. Extraocular muscles are intact. Conjunctivae were clear. Oropharyngeal: Pharynx without any erythema edema. Tongue is midline without deviation. Buccal mucosa is moist without any masses or lesions NECK: Supple without any masses. Trachea midline no deviation. No JVD, no bruits are appreciated CARDIAC: Regular rhythm, regular rate. S1/S2 are heard. No murmurs gallops or rubs. LUNGS: Clear to auscultation bilaterally. No wheeze, rhonchi or rales. No use of accessory muscles on inspiration or expiration. ABDOMEN: Soft, nontender. Nondistended. Bowel sounds heard in all 4 quadrants. No organomegaly or masses. Negative rebound, negative guarding EXTREMITIES: No edema, pulses are equal bilaterally. No cyanosis or clubbing NEUROLOGY: Mood and affect appear appropriate. Cranial nerves II through XII grossly intact. Muscle strength 5/5 in upper and lower extremities bilaterally. Deep tendon reflexes are 2+ in upper and lower extremities bilaterally. Results - Labs CBC & Chem 7: 08/05/18 05:33 08/05/18 05:33 Labs: Laboratory Results - last 24 hr 08/04/18 08/04/18 08/04/18 18:15 18:15 18:15 CBC w Diff Auto diff final WBC 9.9 RBC 4.82 Hgb 14.5 Hct 43.2 MCV 89.6 MCH 30.2 MCHC 33.7 RDW 14.1 Plt Count 325 MPV 7.9 Neut % (Auto) 86.0 H Lymph % (Auto) 7.2 L Callahan % (Auto) 6.0 Eos % (Auto) 0.3 Baso % (Auto) 0.5 Neut # (Auto) 8.6 H Lymph # (Auto) 0.7 L [place]ahan # (Auto) 0.6 Eos # (Auto) 0.0 Baso # (Auto) 0.0 WBC Differential . Differential Comment . PT 10.0 INR 1.0 APTT 24.9 Sodium 140 Potassium 4.3 Chloride 105 Carbon Dioxide 25.7 Anion Gap 9 BUN 21 H Creatinine 0.83 Estimated GFR 65 L Random Glucose 106 Calcium 8.7 Total Bilirubin 0.4 AST 32 ALT 32 Alkaline Phosphatase 94 Total Protein 6.8 Albumin 3.3 L Lipase 228 Urine Color Urine Clarity Urine pH Ur Specific [place] Urine Protein Urine Glucose (UA) Urine Ketones Urine Occult Blood Urine Nitrate Urine Bilirubin Urine Urobilinogen Ur Leukocyte Esterase Urine RBC Urine WBC Ur Squamous Epith Cells Urine Bacteria Micro UA Comment Ur Microscopic Review Urine Culture Comments 08/04/18 08/05/18 08/05/18 18:15 05:33 05:33 CBC w Diff Auto diff final WBC 5.1 RBC 3.88 L Hgb 12.4 D Hct 35.3 MCV 91.0 MCH 31.9 MCHC 35.1 RDW 14.3 Plt Count 260 MPV 8.3 Neut % (Auto) 62.8 Lymph % (Auto) 26.4 Callahan % (Auto) 8.8 H Eos % (Auto) 1.4 Baso % (Auto) 0.6 Neut # (Auto) 3.3 Lymph # (Auto) 1.3 Callahan # (Auto) 0.4 Eos # (Auto) 0.1 Baso # (Auto) 0.0 WBC Differential . Differential Comment . PT INR APTT Sodium 143 Potassium 3.6 Chloride 108 H Carbon Dioxide 26.8 Anion Gap 8 BUN 16 Creatinine 0.78 Estimated GFR 70 L Random Glucose 98 Calcium 8.0 L Total Bilirubin AST ALT Alkaline Phosphatase Total Protein Albumin Lipase Urine Color Yellow Urine Clarity Slightly cloudy Urine pH 6.0 Ur Specific [place] 1.010 Urine Protein Negative Urine Glucose (UA) Negative Urine Ketones Trace H Urine Occult Blood Negative Urine Nitrate Positive H Urine Bilirubin Negative Urine Urobilinogen 0.2 Ur Leukocyte Esterase Large H Urine RBC 0-3 Urine WBC 51-189 H Ur Squamous Epith Cells 0-5 Urine Bacteria Many H Micro UA Comment Culture indicated Ur Microscopic Review Microscopic reviewed Urine Culture Comments Culture indicated - Imaging Impressions Abdomen/Pelvis CT 08/04/18 17:48 CONCLUSION: 1. Mild small bowel dilatation and wall thickening suggesting mild enteritis and possible mild small bowel obstruction. Clinical correlation is recommended. The colon is nondilated. 2. Small hiatal hernia. 3. Tiny pericardial effusion. 4. Tiny bilateral pleural effusions. 5. 9 mm medial left lobe hepatic cyst. 6. 6.9 cm left renal cyst. 7. Degenerative changes and scoliosis of the thoracolumbar spine. 8. Small hiatal hernia. Abdomen X-Ray 08/05/18 00:00 CONCLUSION: Do not see evidence for an obstruction. Caprini VTE Risk Assessment Caprini VTE Risk Assessment: Moderate/High Risk (score >= 2) Caprini Risk Assessment Model: Point Value = 1 Point Value = 2 Point Value = 3 Point Value = 5 Age 41-60 Minor surgery BMI > 25 kg/m2 Swollen legs Varicose veins or History of unexplained or recurrent spontaneous Oral contraceptives or hormone replacement Sepsis (< 1 month) Serious lung disease, including pneumonia (< 1 month) Abnormal pulmonary function Acute myocardial infarction Congestive heart failure (< 1 month) History of inflammatory bowel disease Medical patient at bed rest Age 61-74 Arthroscopic surgery Major open surgery (> 45 min) Laparoscopic surgery (> 45 min) Malignancy Confined to bed (> 72 hours) Immobilizing plaster cast Central venous access Age >= 75 History of VTE Family history of VTE Factor V Leiden Prothrombin [id number] Lupus anticoagulant Anticardiolipin antibodies Elevated serum homocysteine Heparin-induced thrombocytopenia Other congenital or acquired thrombophilia Stroke (< 1 month) Elective arthroplasty Hip, pelvis, or leg fracture Acute spinal cord injury (< 1 month) Prophylaxis Regimen: Total Risk Factor Score Risk Level Prophylaxis Regimen 0-1 Low Early ambulation 2 Moderate Order ONE of the following: *Sequential Compression Device (SCD) *Heparin 5000 units SQ BID 3-4 Higher Order ONE of the following medications: *Heparin 5000 units SQ TID *Enoxaparin/Lovenox 40 mg SQ daily (WT < 150 kg, CrCl > 30 mL/min) *Enoxaparin/Lovenox 30 mg SQ daily (WT < 150 kg, CrCl > 10-29 mL/min) *Enoxaparin/Lovenox 30 mg SQ BID (WT < 150 kg, CrCl > 30 mL/min) AND/OR *Sequential Compression Device (SCD) 5 or more Highest Order ONE of the following medications: *Heparin 5000 units SQ TID (Preferred with Epidurals) *Enoxaparin/Lovenox 40 mg SQ daily (WT < 150 kg, CrCl > 30 mL/min) *Enoxaparin/Lovenox 30 mg SQ daily (WT < 150 kg, CrCl > 10-29 mL/min) *Enoxaparin/Lovenox 30 mg SQ BID (WT < 150 kg, CrCl > 30 mL/min) AND *Sequential Compression Device (SCD) Assessment and Plan - Assessment (1) Enteritis Code(s): K52.9 - Noninfective gastroenteritis and colitis, unspecified Status : Acute (2) Small bowel obstruction Code(s): K56.609 - Unspecified intestinal obstruction, unspecified as to partial versus complete obstruction Status: Acute (3) Urinary tract infection Code(s): N39.0 - Urinary tract infection, site not specified Status: Acute - Plan Enteritis with possible small bowel obstruction -Patient was placed in observation with IV fluid, n.p.o., pain control -Follow-up KUB with flat and upright did not indicate any signs of obstruction -Start clear liquid diet and advance as tolerated -Monitor for any nausea, vomiting, bowel movements Urinary tract infection -Conitinue Rocephin -Follow culture for antibiotics Hypertension Continue home medications- DVT prevention -Subcutaneous heparin
[2018-08-06] MEDS: Sod Chloride 0.9% Inj 1,000 ML IV.CONT SCH ×2 (03:51→15:58)
[2018-08-06] MEDS: Senna/Docusate Sodium 8.6/50 MG Tablet PO SCH (08:56)
[2018-08-06] MEDS: Heparin - SQ 10,000 UNITS/ML Vial SQ SCH (08:58)
--- NOTE | 2018-08-06 09:44 | P.PN ---
Subjective Interval history: 88-year-old female who is seen and examined today for follow-up on enteritis, possible small bowel obstruction. Patient is tolerating diet without any abdominal discomfort. Patient still has not had a bowel movement since being in the hospital. Patient remains afebrile. Physical Exam Vital signs: Vital Signs 08/05/18 12:00 08/05/18 20:00 08/06/18 00:00 Temperature 98.1 F 97.2 F L 97.8 F Pulse Rate 54 L 52 L 55 L Respiratory Rate 16 16 16 Blood Pressure 149/67 H 158/73 H 132/60 Pulse Oximetry 97 94 L 98 08/06/18 07:43 Temperature 96.8 F L Pulse Rate 58 L Respiratory Rate 20 Blood Pressure 166/77 H Pulse Oximetry 95 Intake & Output 08/05/18 08/06/18 08/06/18 18:59 06:59 18:59 Intake Total 1000 / 1000 1100 / 1100 Balance 1000 / 1000 1100 / 1100 Weight 60.7 kg Intake: IV 1000 / 1000 1100 / 1100 NS Inj 1,000 ML @ 70 mls/hr IV. 1000 / 1000 1000 / 1000 CONT .[id number] [facility] Rx#: [id number] Rocephin Inj 1,000 MG In NS Inj 100 / 100 100 ML @ 200 mls/hr IV.SIG Q24H [facility] Rx#:[id number] Other: # Voids 3 # Bowel Movements 0 Narrative: GENERAL: Well-developed, well-nourished, in no acute distress. alert and orientated HEENT: Head is normocephalic without any lesions or masses noted. Facial features are symmetric. Eyes: Extraocular muscles are intact. Conjunctivae were clear. NECK: Supple without any masses. Trachea midline no deviation. No JVD, CARDIAC: Regular rhythm, regular rate. S1/S2 are heard. No murmurs gallops or rubs. LUNGS: Clear to auscultation bilaterally. No wheeze, rhonchi or rales. No use of accessory muscles on inspiration or expiration. ABDOMEN: Soft, nontender. Nondistended. Bowel sounds heard in all 4 quadrants. No organomegaly or masses. Negative rebound, negative guarding EXTREMITIES: No edema, pulses are equal bilaterally. No cyanosis or clubbing NEUROLOGY: Mood and affect appear appropriate. Cranial nerves II through XII grossly intact. Moving all extremities, speech is clear Results - Labs CBC & Chem 7: 08/05/18 05:33 08/05/18 05:33 Laboratory Results - last 24 hr 08/04/18 18:15 Urine Color Yellow Urine Clarity Slightly cloudy Urine pH 6.0 Ur Specific [place] 1.010 Urine Protein Negative Urine Glucose (UA) Negative Urine Ketones Trace H Urine Occult Blood Negative Urine Nitrate Positive H Urine Bilirubin Negative Urine Urobilinogen 0.2 Ur Leukocyte Esterase Large H Urine RBC 0-3 Urine WBC 51-189 H Ur Squamous Epith Cells 0-5 Urine Bacteria Many H Micro UA Comment Culture indicated Ur Microscopic Review Microscopic reviewed Urine Culture Comments Culture indicated Microbiology 08/04/18 18:15 Clean Catch Urine Urine Culture - Preliminary gram negative rods - Imaging Impressions Abdomen X-Ray 08/05/18 00:00 CONCLUSION: Do not see evidence for an obstruction. Assessment and Plan - Assessment (1) Enteritis Code(s): K52.9 - Noninfective gastroenteritis and colitis, unspecified Status : Acute (2) Small bowel obstruction Code(s): K56.609 - Unspecified intestinal obstruction, unspecified as to partial versus complete obstruction Status: Acute (3) Urinary tract infection Code(s): N39.0 - Urinary tract infection, site not specified Status: Acute - Plan Enteritis with possible small bowel obstruction -Patient was placed in observation with IV fluid, n.p.o., pain control -Follow-up KUB with flat and upright did not indicate any signs of obstruction -Diet has been advanced to regular diet without any intolerance -Continue to monitor for any nausea, vomiting, bowel movements -Small bowel follow through was unremarkable for any obstruction Urinary tract infection -Conitinue Rocephin -Follow culture for antibiotics Hypertension Continue home medications- DVT prevention -Subcutaneous heparin Discharge Planning: Discharge home in stable condition Diet: regular diet Activity: ad simone Medication per medication reconciliation Follow up with primary medical doctor in 1 week
--- NOTE | 2018-08-06 16:20 | FL ---
EXAM DATE: 08/06/2018 4:15 PM EDT AGE/SEX: 88 years / Female INDICATIONS: Obstruction CLINICAL DATA: This is the patient's initial encounter. Patient reports that signs and symptoms have been present for 1 day and indicates a pain score of 0/10. MEDICAL/SURGICAL HISTORY: . Gastroesophageal reflux disease. Hypertension. Dementia. Gastritis. Colon cancer. . Colon cancer. . Hysterectomy. Cholecystectomy. Colon resection. COMPARISON: [facility], ABDOMEN 2V FLAT & UPRIGHT, 08/05/2018. . FLUORO TIME: 0 IMAGE COUNT: 3 CONTRAST: Oral Gastrografin FINDINGS: Preliminary film is demonstrates a nonobstructive bowel gas pattern with extensive surgical clips martínez ntified throughout the pelvis. The stomach is grossly unremarkable. Examination of the small bowel demonstrates normal mucosal pattern involving the jejunum and ileum. There is no evidence of mass or obstruction. No intraluminal filling defects are identified. Small bowel transit time is normal at less than 30 minutes minutes. The exam is terminated at 30 minutes w ith Gastrografin material identified within the stool filled cecum. CONCLUSION: No evidence of bowel obstruction. Electronically signed by: Kenia Abdi MD 08/06/2018 4:19 PM EDT
== END 2018-08-06 19:14 | disposition home or self-care (01) ==
LOC: PHEDA 16:58 → PHED 16:58 → PH3 21:14
PROVIDERS: ADMIT Hospitalist; ATTEND Hospitalist

== ENCOUNTER 2019-01-19 15:25 | Inpatient (IN) ==
--- NOTE | 2019-01-19 16:05 | ED ---
HPI General Chief complaint: Respiratory Symptoms Stated complaint: sob-sent by urgent care Time Seen by Provider: 01/19/19 15:51 Source: patient Mode of arrival: ambulatory Limitations: no limitations History of Present Illness HPI narrative: This 88-year-old female is complaining of shortness of breath since yesterday. She is here with a caregiver. She lives alone but has help coming in the afternoon Wednesday through Wednesday. She is not aware of any history of heart disease though review of chart shows that she did have atrial fibrillation in the past. She does have a history of dementia. She is not on any medication for atrial fibrillation that I can determine. She denies any chest pain. She has not had fever or chills. She does not recall having shortness of breath before. She stopped smoking many years ago Related Data Home Medications Medication Instructions Recorded Confirmed cholecalciferol (vitamin D3) 5,000 unit PO DAILY 08/04/18 01/19/19 cyanocobalamin (vitamin B-12) 5,000 mcg SUBLINGUAL DAILY 08/04/18 01/19/19 multivitamin 1 tab PO DAILY 08/04/18 01/19/19 pantoprazole 40 mg PO BID 08/04/18 01/19/19 valsartan 40 mg PO DAILY 08/04/18 01/19/19 Previous Rx's Medication Instructions Recorded cefuroxime axetil 250 mg PO Q12H #14 tab 08/06/18 Allergies Allergy/AdvReac Type Severity Reaction Status Date / Time codeine Allergy Mild Nausea Verified 01/19/19 15:34 Review of Systems Constitutional Denies fever(s) Cardiovascular Denies chest pain Respiratory Reports dyspnea PMFSH Medical History Medical History Dementia (Acute) Hypertension (Acute) Reflux gastritis (Acute) Surgical History Surgical History Hx of cholecystectomy (Acute) Hx of tonsillectomy (Acute) Family History Family History Other Family history unobtainable Social History Social History Substance History: No History of Abuse Second Hand Smoke Exposure: No Smoking Status: Former smoker Tobacco Type: Cigarettes How Often Do You Have a Drink Containing Alcohol: Never Recent Travel in [facility] within the Last 8 Weeks: No Recent Out of Country Travel within the Last 8 Weeks: No Exam Narrative Exam Narrative: GENERAL: Well-developed female SKIN: Focused skin assessment warm/dry. HEAD: Atraumatic. Normocephalic. EYES: Pupils equal and round. No scleral icterus. No injection or drainage. ENT: No nasal bleeding or discharge. Mucous membranes pink and moist. NECK: Trachea midline. No JVD. CARDIOVASCULAR: Rapid irregular rate and rhythm. No murmur appreciated. RESPIRATORY: There are bibasilar rales GASTROINTESTINAL: Abdomen soft, non-tender, nondistended. Hepatic and splenic margins not palpable. MUSCULOSKELETAL: No obvious deformities. No clubbing. No cyanosis. No edema. NEUROLOGICAL: Awake and alert. No obvious cranial nerve deficits. Motor grossly within normal limits. Normal speech. PSYCHIATRIC: Memory is poor Course Initial Documented Vital Signs Temperature 97.5 F L 01/19/19 15:32 Pulse Rate 121 H 01/19/19 15:32 Respiratory Rate 16 01/19/19 15:32 Blood Pressure 141/102 H 01/19/19 15:32 Pulse Oximetry 95 01/19/19 15:32 Last Documented Vital Signs Temperature 97.5 F L 01/19/19 15:32 Pulse Rate 100 H 01/19/19 19:18 Respiratory Rate 20 01/19/19 19:17 Blood Pressure 137/85 01/19/19 19:17 Pulse Oximetry 96 01/19/19 19:17 Critical Care Time Critical Care Time: Yes Total Critical Care Time: 40 Attestation: Aggregate critical care time was 40 minutes. Time to perform other separately billable procedures was not included in the critical care time. My time did not include minutes spent treating any other patients simultaneously or on activities that did not directly contribute to the patient's treatment. The services I provided to this patient were to treat and/or prevent clinically significant deterioration that could result in: cardiovascular collapse or . I provided critical care services requiring my management, as noted below: Chart data review, documentation time, medication orders and management, vital sign assessments/reviewing monitor data, ordering and reviewing lab tests, ordering and interpreting/reviewing x-rays and diagnostic studies, care of the patient and discussion of the patient with the admitting physicians. Sign Out Sign Out Data: Patient Sign Out occurred on 01/19/19 at 16:27. Patient's care was discussed, and care was transferred from Jose F Gonzalez MD to Elsa Day DO. Sign Out Comment: Patient presented with shortness of breath since yesterday. She is in atrial fib with a rate of about 120. Workup has been ordered Last updated by Jose F Gonzalez MD at 01/19/19 16:19 Post-Handoff Eval: 88yo F with dementia was brought in by her retort press operator for sob since yesterday. Pt lives by herself but her retort press operator is there 4 hours a day and said she appeared to be breathing more heavily yesterday. Pt has crackles in bilateral lower lungs. HR is 120-130 on monitor and on review of record, pt has history of afib. Pt given cardizem 10mg IV and HR has been in the 80s. Labs reviewed, no leukocytosis. H/H normal. BUN increased at 22. BUN/ratio is 2 to 1. BNP elevated at 513. Troponin negative. CXR showed congestive heart failure with pulmonary edema. Bilateral pleural effusion overlying airspace atelectasis. Findings new compare to prior. Pt given lasix 20mg IV. Will admit for afib RVR and CHF exacerbation. Car Salter said pt is at baseline mental status and does not have a electrologist because she keeps forgeting to follow up and was drop by her electrologist. O2 sat improves to 95% on 2L NC and pt feels better. She does not use oxygen at home. Discussed with Dr. Jimenez and accepted to his service. Medical Decision Making MDM Narrative Medical decision making narrative: Workup has been ordered and further treatment will be determined by the oncoming physician. Medical Screen Exam Complete: Yes Emergency Medical Condition: Yes Differential Diagnosis Differential Diagnosis: Differential includes CHF, atrial fibrillation, COPD Lab Data Result diagrams: 01/19/19 16:10 01/19/19 16:10 Lab Results 01/19/19 01/19/19 01/19/19 Range/Units 16:10 16:10 16:10 CBC w Diff Auto diff final WBC 6.5 (4.0-11.0) th/mm3 RBC 4.22 (4.00-5.30) mil/mm3 Hgb 12.2 (11.6-15.3) gm/dL Hct 37.8 (35.0-46.0) % MCV 89.7 (80.0-100.0) fL MCH 29.0 (27.0-34.0) pg MCHC 32.3 (32.0-36.0) % RDW 13.7 (11.6-17.2) % Plt Count 317 (150-450) th/mm3 MPV 8.3 (7.0-11.0) fL Neut % (Auto) 76.2 H (16.0-70.0) % Lymph % (Auto) 13.1 (9.0-44.0) % [place] % (Auto) 7.7 (0.0-8.0) % Eos % (Auto) 2.0 (0.0-4.0) % Baso % (Auto) 1.0 (0.0-2.0) % Neut # (Auto) 4.9 (1.8-7.7) th/mm3 Lymph # (Auto) 0.9 L (1.0-4.8) th/mm3 [place] # (Auto) 0.5 (0.0-0.9) th/mm3 Eos # (Auto) 0.1 (0.0-0.4) th/mm3 Baso # (Auto) 0.1 (0.0-0.2) th/mm3 WBC Differential . Differential Comment . PT 10.7 (9.8-11.6) sec INR 1.1 Ratio APTT 26.4 (23.4-31.7) sec Sodium 140 (136-145) meq/L Potassium 4.5 (3.5-5.1) meq/L Chloride 110 H (98-107) meq/L Carbon Dioxide 24.6 (21.0-32.0) meq/L Anion Gap 5 (5-15) meq/L BUN 22 H (7-18) mg/dL Creatinine 0.84 (0.50-1.00) mg/dL Estimated GFR 64 L (>89) mL/min Random Glucose 108 H (74-106) mg/dL Calcium 8.3 L (8.5-10.1) mg/dL Total Bilirubin 0.2 (0.2-1.0) mg/dL AST 29 (15-37) U/L ALT 52 (10-53) U/L Alkaline Phosphatase 119 H (45-117) U/L Troponin I Less than 0.02 L (0.02-0.05) ng/mL B-Natriuretic Peptide (0-100) pg/mL Total Protein 6.5 (6.4-8.2) g/dL Albumin 3.2 L (3.4-5.0) g/dL Urine Color (Yellw/Straw) Urine Clarity (Clear) Urine pH (5.0-8.5) Ur Specific [place] (1.002-1.035) Urine Protein (Neg-Trace) mg/dL Urine Glucose (UA) (Negative) mg/dL Urine Ketones (Negative) mg/dL Urine Occult Blood (Negative) Urine Nitrate (Negative) Urine Bilirubin (Negative) Urine Urobilinogen (Less than 2) mg/dL Ur Leukocyte Esterase (Negative) Urine WBC (0-5) /hpf Ur Squamous Epith Cells (0-5) /hpf Urine Bacteria (None) /hpf Micro UA Comment Ur Microscopic Review Urine Culture Comments 01/19/19 01/19/19 Range/Units 16:10 16:55 CBC w Diff WBC (4.0-11.0) th/mm3 RBC (4.00-5.30) mil/mm3 Hgb (11.6-15.3) gm/dL Hct (35.0-46.0) % MCV (80.0-100.0) fL MCH (27.0-34.0) pg MCHC (32.0-36.0) % RDW (11.6-17.2) % Plt Count (150-450) th/mm3 MPV (7.0-11.0) fL Neut % (Auto) (16.0-70.0) % Lymph % (Auto) (9.0-44.0) % [place] % (Auto) (0.0-8.0) % Eos % (Auto) (0.0-4.0) % Baso % (Auto) (0.0-2.0) % Neut # (Auto) (1.8-7.7) th/mm3 Lymph # (Auto) (1.0-4.8) th/mm3 [place] # (Auto) (0.0-0.9) th/mm3 Eos # (Auto) (0.0-0.4) th/mm3 Baso # (Auto) (0.0-0.2) th/mm3 WBC Differential Differential Comment PT (9.8-11.6) sec INR Ratio APTT (23.4-31.7) sec Sodium (136-145) meq/L Potassium (3.5-5.1) meq/L Chloride (98-107) meq/L Carbon Dioxide (21.0-32.0) meq/L Anion Gap (5-15) meq/L BUN (7-18) mg/dL Creatinine (0.50-1.00) mg/dL Estimated GFR (>89) mL/min Random Glucose (74-106) mg/dL Calcium (8.5-10.1) mg/dL Total Bilirubin (0.2-1.0) mg/dL AST (15-37) U/L ALT (10-53) U/L Alkaline Phosphatase (45-117) U/L Troponin I (0.02-0.05) ng/mL B-Natriuretic Peptide 513 H (0-100) pg/mL Total Protein (6.4-8.2) g/dL Albumin (3.4-5.0) g/dL Urine Color Yellow (Yellw/Straw) Urine Clarity Clear (Clear) Urine pH 7.0 (5.0-8.5) Ur Specific [place] 1.010 (1.002-1.035) Urine Protein Negative (Neg-Trace) mg/dL Urine Glucose (UA) Negative (Negative) mg/dL Urine Ketones Negative (Negative) mg/dL Urine Occult Blood Negative (Negative) Urine Nitrate Negative (Negative) Urine Bilirubin Negative (Negative) Urine Urobilinogen 0.2 (Less than 2) mg/dL Ur Leukocyte Esterase Negative (Negative) Urine WBC 0-5 (0-5) /hpf Ur Squamous Epith Cells 0-5 (0-5) /hpf Urine Bacteria Few H (None) /hpf Micro UA Comment Culture not ind Ur Microscopic Review Microscopic reviewed Urine Culture Comments Culture not ind Imaging Data Radiologist's impression: Chest X-Ray 01/19/19 15:51 CONCLUSION: Radiographic findings concerning for congestive heart failure with pulmonary edema. Likely bilateral small pleural effusions with overlying airspace atelectasis. Findings are new as compared to the prior exam. ECG Data EKG Prior to Arrival: No Attestation: I personally reviewed and interpreted this ECG as follows: Interpretation: EKG completed after cardizem: Afib at 91bpm. Normal axis. No significant ST elevation or depression. Discharge Plan Discharge Disposition Patient Disposition: ED Admit(ED Internal Use Only) Discharge Order Discharge Orders: ED Use Only Admit Order (Routine); Ordered 01/19/19 Ordered By: Elsa Day Discharge Details Diagnosis: CHF exacerbation Physicians Team ED Provider: Elsa Day Primary Care Provider: Murray Okeefe Attending Provider: Zion Jimenez Status ED Status: Left Department Discharge Information Discharge Date/Time: 01/19/19 19:30
--- NOTE | 2019-01-19 16:20 | XR ---
EXAM DATE: 01/19/2019 4:17 PM EST AGE/SEX: 88 years / Female INDICATIONS: Short of breath. CLINICAL DATA: This is the patient's initial encounter. Patient reports that signs and symptoms have been present for 1 day and indicates a pain score of 5/10. MEDICAL/SURGICAL HISTORY: None. None. COMPARISON: [facility], CHEST SINGLE AP, 02/26/2018. . FINDINGS: AP upright portable view of the chest demonstrates mild cardiomegaly, cephalization of pulmonary vasc ulature. There is bilateral airspace opacities within the lower lobes and interstitial thickening martínez ntified within the right hemithorax. Osseous structures and straight degenerative changes. CONCLUSION: Radiographic findings concerning for congestive heart failure with pulmonary edema. Likely bilateral small pleural effusions with overlying airspace atelectasis. Findings are new as compared to the prio r exam. Electronically signed by: Kenia Abdi MD Board Certified Radiologist 01/19/2019 4:19 PM EST
[2019-01-19 16:24] LABS: Baso # (Auto) 0.1 th/mm3 (0.0-0.2); Eos # (Auto) 0.1 th/mm3 (0.0-0.4); Hematocrit 37.8 % (35.0-46.0); Hemoglobin 12.2 gm/dL (11.6-15.3); Lymph # (Auto) 0.9 th/mm3 (1.0-4.8); Lymph % (Auto) 13.1 % (9.0-44.0); Mean Corpuscular HGB Conc 32.3 % (32.0-36.0); Mean Corpuscular Volume 89.7 fL (80.0-100.0); Mean Platelet Volume 8.3 fL (7.0-11.0); Mono # (Auto) 0.5 th/mm3 (0.0-0.9); Mono % (Auto) 7.7 % (0.0-8.0); Neut # (Auto) 4.9 th/mm3 (1.8-7.7); Neut % (Auto) 76.2 % (16.0-70.0); Platelet Count 317 th/mm3 (150-450); Red Blood Count 4.22 mil/mm3 (4.00-5.30); Red Cell Distribution Width 13.7 % (11.6-17.2); White Blood Count 6.5 th/mm3 (4.0-11.0)
[2019-01-19 16:29] LABS: Chloride 110 meq/L (98-107); Potassium 4.5 meq/L (3.5-5.1); Sodium 140 meq/L (136-145)
[2019-01-19 16:32] LABS: Calcium 8.3 mg/dL (8.5-10.1)
[2019-01-19 16:33] LABS: Albumin 3.2 g/dL (3.4-5.0); Anion Gap 5 meq/L (5-15); Blood Urea Nitrogen 22 mg/dL (7-18); Carbon Dioxide 24.6 meq/L (21.0-32.0); Glucose,Random 108 mg/dL (74-106)
[2019-01-19 16:35] LABS: Activated Partial Thrombo Time 26.4 sec (23.4-31.7); Alanine Aminotransferase 52 U/L (10-53); INR 1.1 Ratio; Prothrombin Time 10.7 sec (9.8-11.6)
[2019-01-19 16:36] LABS: Aspartate Aminotransferase 29 U/L (15-37); Glomerular Filtration Rate 64 mL/min (>89)
[2019-01-19 16:37] LABS: Total Protein 6.5 g/dL (6.4-8.2)
[2019-01-19 16:38] LABS: Alkaline Phosphatase 119 U/L (45-117)
[2019-01-19 17:19] LABS: Bilirubin,Urine Negative (Negative); Clarity,Urine Clear (Clear); Color,Urine Yellow (Yellw/Straw); Glucose,Urine (UA) Negative (Negative); Leukocyte Esterase,Urine Negative (Negative); Nitrite,Urine Negative (Negative); Urobilinogen,Urine 0.2 mg/dL (Less than 2)
[2019-01-19 17:31] LABS: Bacteria,Urine Few /hpf; Squamous Epithelial Cell,Urine 0-5 /hpf (0-5); WBC,Urine 0-5 /hpf (0-5)
[2019-01-19 22:55] LABS: Creatine Kinase 212 U/L (26-192)
[2019-01-19 23:07] LABS: CKMB Percent 2.6 % (0.0-4.0); Creatine Kinase MB 5.6 ng/mL (0.5-3.6)
[2019-01-20 06:27] LABS: Potassium 3.8 meq/L (3.5-5.1)
[2019-01-20 06:31] LABS: Calcium 8.4 mg/dL (8.5-10.1); Carbon Dioxide 27.9 meq/L (21.0-32.0)
--- NOTE | 2019-01-20 06:49 | ECG ---
Date Performed: 01/19/2019 Time Performed: 22:26:51 PTAGE: 88 years EKG: ATRIAL FIBRILLATION WITH RAPID VENTRICULAR RESPONSE ABNORMAL RHYTHM ECG PREVIOUS TRACING : 01/19/2019 17.03 No significant change from previous tracing noted. DOCTOR: Gene Cuevas Interpretating Date/Time 01/20/2019 06:48:33
--- NOTE | 2019-01-20 06:57 | ECG ---
Date Performed: 01/19/2019 Time Performed: 17:03:22 PTAGE: 88 years EKG: ATRIAL FIBRILLATION ABNORMAL RHYTHM ECG PREVIOUS TRACING : 02/26/2018 14.18 Compared to previous tracing, heart rate has decreased. DOCTOR: Gene Cuevas Interpretating Date/Time 01/20/2019 06:55:36
--- NOTE | 2019-01-20 10:17 | ECHRPT ---
Indication: Heart Failure CONCLUSIONS Normal left ventricular size. Wall thickness is normal. The left ventricular systolic function is normal with an estimated ejection fraction in the range of 55-60%. The left atrial size is mildly dilated. Mild mitral valve regurgitation. There is mild tricuspid valve regurgitation. The estimated pulmonary arterial pressure is 40 mmHg. There is a small to moderate pericardial effusion present. A small left sided pleural effusion is noted. BP: / HR: Rhythm: MEASUREMENTS (Male / Female) Normal Values Technical Quality:Fair 2D ECHO LV Diastolic Diameter PLAX 4.2 cm 4.2 - 5.9 / 3.9 - 5.3 cm LV Systolic Diameter PLAX 3.2 cm IVS Diastolic Thickness 1.0 cm 0.6 - 1.0 / 0.6 - 0.9 cm LVPW Diastolic Thickness 0.9 cm 0.6 - 1.0 / 0.6 - 0.9 cm LV Relative Wall Thickness 0.4 RV Internal Dim ED PLAX 3.2 cm LVOT Diameter 2.0 cm Aortic Root Diameter 2.9 cm LA Systolic Diameter LX 4.0 cm 3.0 - 4.0 / 2.7 - 3.8 cm DOPPLER AV Peak Velocity 121.0 cm/s AV Peak Gradient 5.9 mmHg LVOT Peak Velocity 79.5 cm/s LVOT Peak Gradient 2.5 mmHg AV Area Cont Eq pk 2.1 cm Mitral E Point Velocity 98.2 cm/s LV E' Lateral Velocity 8.0 cm/s Mitral E to LV E' Lateral Ratio 12.3 LV E' Septal Velocity 9.5 cm/s Mitral E to LV E' Septal Ratio 10.4 TR Peak Velocity 273.0 cm/s TR Peak Gradient 29.8 mmHg Right Atrial Pressure 10.0 mmHg Pulmonary Artery Systolic Pressu 39.8 mmHg Right Ventricular Systolic Press 39.8 mmHg PV Peak Velocity 81.4 cm/s PV Peak Gradient 2.7 mmHg FINDINGS LEFT VENTRICLE Normal left ventricular size. Wall thickness is normal. The left ventricular systolic function is normal with an estimated ejection fraction in the range of 55-60%. RIGHT VENTRICLE Normal right ventricular size and systolic function. LEFT ATRIUM The left atrial size is mildly dilated. RIGHT ATRIUM The right atrial size is normal. ATRIAL SEPTUM Normal atrial septal thickness without atrial level shunting by limited color doppler interrogation. AORTA The aortic root and proximal ascending aorta are normal in size on limited imaging. MITRAL VALVE Mild mitral valve regurgitation. AORTIC VALVE Trileaflet aortic valve. No aortic valve stenosis or regurgitation. TRICUSPID VALVE There is mild tricuspid valve regurgitation. The estimated pulmonary arterial pressure is 40 mmHg. PULMONARY VALVE No pulmonary valve regurgitation or stenosis. VESSELS The inferior vena cava is normal in size. PERICARDIUM There is a small to moderate pericardial effusion present. A small left sided pleural effusion is noted. Kathy Miller MD, FACC (Electronically Signed) Final Date:20 January 2019 10:15
--- NOTE | 2019-01-20 11:10 | P.HPIM ---
History of Present Illness Primary Care Physician: Murray Okeefe MD Chief Complaint: Shortness of breath History of Present Illness: 88-year-old female who past medical history of CHF, presented to the hospital for evaluation of worsening symptoms of shortness of breath times 2 days duration without any chest pain. Also noted bilateral extremity cellulitis. Chest x-ray in the ED revealed radiographic findings concerning for congestive heart failure with pulmonary edema and patient had a BNP of 513. She also presented with elevated heart rate which subsequently improved after Cardizem IV x1 in the ED. Currently patient is normotensive reports some improvement of shortness of breath since admission. Inpatient Certification Inpatient Certification: I certify that the inpatient services were ordered in accordance with Medicare regulations governing the order. This includes certification that hospital inpatient services are reasonable and necessary and in the case of services not specified as inpatient-only under 42 CFR 419.22(n), that they are appropriately provided as inpatient services in accordance to with the 2-midnight benchmark under 43 CFR 412.3(e) Estimated Total Length of Stay (Days): 2 Plans for Post Hospital Care: SNF Review of Systems Review of Systems: all other systems reviewed are negative [facility] Medical History Medical History Dementia (Acute) Hypertension (Acute) Reflux gastritis (Acute) Surgical History Surgical History Hx of cholecystectomy (Acute) Hx of tonsillectomy (Acute) Family History Family History Other Family history unobtainable Social History Social History Substance History: No History of Abuse Second Hand Smoke Exposure: No Smoking Status: Former smoker Tobacco Type: Cigarettes How Often Do You Have a Drink Containing Alcohol: Never Recent Travel in [place] within the Last 8 Weeks: No Recent Out of Country Travel within the Last 8 Weeks: No Immunization History Tetanus Immunization: >5 Years Hx Influenza Vaccine This Season: Yes Medications and Allergies Allergies Allergy/AdvReac Type Severity Reaction Status Date / Time codeine Allergy Mild Nausea Verified 01/19/19 15:34 Home Medications Medication Instructions Recorded Confirmed Type cholecalciferol (vitamin D3) 5,000 unit PO DAILY 08/04/18 01/19/19 History cyanocobalamin (vitamin B-12) 5,000 mcg SUBLINGUAL DAILY 08/04/18 01/19/19 History multivitamin 1 tab PO DAILY 08/04/18 01/19/19 History pantoprazole 40 mg PO BID 08/04/18 01/19/19 History valsartan 40 mg PO DAILY 08/04/18 01/19/19 History Active Medications: Active Medications Cefuroxime Axetil (Ceftin) 250 mg PO Q12HR [facility] Last Admin: 01/20/19 10:15 Dose: 250 mg Furosemide (Lasix Inj) 20 mg IV.PUSH DAILY [facility] Last Admin: 01/20/19 10:15 Dose: 20 mg Miscellaneous (Pill Splitter) 1 each OTHER UNSCH [facility] Sodium Chloride (Ns Flush) 2 ml IV.FLUSH BID [facility] Last Admin: 01/20/19 10:15 Dose: 2 ml Sodium Chloride (Ns Flush) 2 ml IV.FLUSH UNSCH PRN PRN Reason: FLUSH AFTER USING IV ACCESS Valsartan (Diovan) 40 mg PO DAILY [facility] Last Admin: 01/20/19 10:15 Dose: Not Given Physical Exam Vital signs: Vital Signs 01/19/19 15:32 01/19/19 15:40 01/19/19 15:51 Temperature 97.5 F L Pulse Rate 121 H 143 H Respiratory Rate 16 Blood Pressure 141/102 H 127/90 Pulse Oximetry 95 96 01/19/19 16:25 01/19/19 16:54 01/19/19 17:40 Temperature Pulse Rate 78 83 94 H Respiratory Rate 16 16 18 Blood Pressure 106/70 106/70 122/73 Pulse Oximetry 95 96 01/19/19 18:00 01/19/19 19:17 01/19/19 19:18 Temperature Pulse Rate 108 H 100 H 100 H Respiratory Rate 20 Blood Pressure 137/85 Pulse Oximetry 96 01/19/19 20:00 01/19/19 23:00 01/20/19 00:00 Temperature 96.1 F L 96.9 F L Pulse Rate 121 H 100 H Respiratory Rate 20 20 Blood Pressure 144/90 H 147/98 H Pulse Oximetry 93 L 94 L 94 L 01/20/19 00:05 01/20/19 04:00 01/20/19 04:23 Temperature 97.3 F L Pulse Rate 114 H 86 98 H Respiratory Rate 20 Blood Pressure 125/63 Pulse Oximetry 95 01/20/19 08:00 01/20/19 09:55 Temperature 96 F L Pulse Rate 89 Respiratory Rate 20 Blood Pressure 124/80 Pulse Oximetry 92 L 95 Intake & Output 01/19/19 01/20/19 01/20/19 18:59 06:59 18:59 Intake Total 60 / 60 Balance 60 / 60 Weight 70.5 kg 66.2 kg Intake: Oral 60 / 60 Narrative: GENERAL: NAD SKIN: Warm and dry. HEAD: Atraumatic. Normocephalic. EYES: Pupils equal and round. No scleral icterus. No injection or drainage. ENT: No nasal bleeding or discharge. Mucous membranes pink and moist. NECK: Trachea midline. No JVD. CARDIOVASCULAR: Irregular regular rate and rhythm. RESPIRATORY: No accessory muscle use. Clear to auscultation. Breath sounds equal bilaterally. GASTROINTESTINAL: Abdomen soft, non-tender, nondistended. Hepatic and splenic margins not palpable. MUSCULOSKELETAL: Extremities without clubbing, cyanosis, +Trace edema. No obvious deformities. NEUROLOGICAL: Awake and alert. No obvious cranial nerve deficits. Motor grossly within normal limits. Five out of 5 muscle strength in the arms and legs. Normal speech. PSYCHIATRIC: Appropriate mood and affect; insight and judgment normal. Results Labs CBC & Chem 7: 01/19/19 16:10 01/20/19 04:25 Imaging Impressions Chest X-Ray 01/19/19 15:51 CONCLUSION: Radiographic findings concerning for congestive heart failure with pulmonary edema. Likely bilateral small pleural effusions with overlying airspace atelectasis. Findings are new as compared to the prior exam. Caprini VTE Risk Assessment Caprini VTE Risk Assessment: Moderate/High Risk (score >= 2) Caprini Risk Assessment Model: Point Value = 1 Point Value = 2 Point Value = 3 Point Value = 5 Age 41-60 Minor surgery BMI > 25 kg/m2 Swollen legs Varicose veins or History of unexplained or recurrent spontaneous Oral contraceptives or hormone replacement Sepsis (< 1 month) Serious lung disease, including pneumonia (< 1 month) Abnormal pulmonary function Acute myocardial infarction Congestive heart failure (< 1 month) History of inflammatory bowel disease Medical patient at bed rest Age 61-74 Arthroscopic surgery Major open surgery (> 45 min) Laparoscopic surgery (> 45 min) Malignancy Confined to bed (> 72 hours) Immobilizing plaster cast Central venous access Age >= 75 History of VTE Family history of VTE Factor V Leiden Prothrombin [id number] Lupus anticoagulant Anticardiolipin antibodies Elevated serum homocysteine Heparin-induced thrombocytopenia Other congenital or acquired thrombophilia Stroke (< 1 month) Elective arthroplasty Hip, pelvis, or leg fracture Acute spinal cord injury (< 1 month) Prophylaxis Regimen: Total Risk Factor Score Risk Level Prophylaxis Regimen 0-1 Low Early ambulation 2 Moderate Order ONE of the following: *Sequential Compression Device (SCD) *Heparin 5000 units SQ BID 3-4 Higher Order ONE of the following medications: *Heparin 5000 units SQ TID *Enoxaparin/Lovenox 40 mg SQ daily (WT < 150 kg, CrCl > 30 mL/min) *Enoxaparin/Lovenox 30 mg SQ daily (WT < 150 kg, CrCl > 10-29 mL/min) *Enoxaparin/Lovenox 30 mg SQ BID (WT < 150 kg, CrCl > 30 mL/min) AND/OR *Sequential Compression Device (SCD) 5 or more Highest Order ONE of the following medications: *Heparin 5000 units SQ TID (Preferred with Epidurals) *Enoxaparin/Lovenox 40 mg SQ daily (WT < 150 kg, CrCl > 30 mL/min) *Enoxaparin/Lovenox 30 mg SQ daily (WT < 150 kg, CrCl > 10-29 mL/min) *Enoxaparin/Lovenox 30 mg SQ BID (WT < 150 kg, CrCl > 30 mL/min) AND *Sequential Compression Device (SCD) Assessment and Plan Plan 88-year-old female with Acute on chronic CHF exacerbation of unknown type Chest x-ray noted and reviewed by me we have radiographic findings concerning for congestive heart failure with pulmonary edema Rule out ACS per protocol serial cardiac enzyme and EKGs Status post Lasix IV 20 mg x1 in the 20 mg x1 in ED Will continue Lasix 20 mg IV daily and resume ARB Strict I's and O's and daily weight Check 2D echo Atrial fibrillation with RVR Reports Cardizem IV x1 in ED with resolution Patient not currently on any oral anticoagulation likely secondary to fall risk Telemetry monitoring Start baby aspirin DVT prophylaxis: Heparin H&P: Quality VTE Deep Vein Thrombosis/Pulmonary Embolism Present on Admission: No
[2019-01-20] MEDS: dilTIAZem 30 MG Tablet PO SCH ×2 (17:14→21:06)
[2019-01-20] MEDS: Heparin - SQ 10,000 UNITS/ML Vial SQ SCH (21:06)
[2019-01-21 07:29] LABS: Eos # (Auto) 0.2 th/mm3 (0.0-0.4); Eos % (Auto) 3.9 % (0.0-4.0); Hematocrit 40.4 % (35.0-46.0); Hemoglobin 13.2 gm/dL (11.6-15.3); Lymph # (Auto) 1.1 th/mm3 (1.0-4.8); Lymph % (Auto) 21.7 % (9.0-44.0); Mean Corpuscular HGB Conc 32.7 % (32.0-36.0); Mean Corpuscular Hemoglobin 29.5 pg (27.0-34.0); Mean Corpuscular Volume 90.2 fL (80.0-100.0); Mean Platelet Volume 8.3 fL (7.0-11.0); Mono # (Auto) 0.5 th/mm3 (0.0-0.9); Neut # (Auto) 3.2 th/mm3 (1.8-7.7); Neut % (Auto) 62.4 % (16.0-70.0); Platelet Count 302 th/mm3 (150-450); Red Blood Count 4.47 mil/mm3 (4.00-5.30); Red Cell Distribution Width 13.8 % (11.6-17.2)
[2019-01-21 07:43] LABS: Chloride 105 meq/L (98-107); Potassium 3.8 meq/L (3.5-5.1); Sodium 141 meq/L (136-145)
[2019-01-21 07:46] LABS: Calcium 8.7 mg/dL (8.5-10.1)
[2019-01-21 07:47] LABS: Albumin 2.9 g/dL (3.4-5.0); Anion Gap 7 meq/L (5-15); Blood Urea Nitrogen 21 mg/dL (7-18); Carbon Dioxide 28.9 meq/L (21.0-32.0); Glucose,Random 108 mg/dL (74-106)
[2019-01-21 07:50] LABS: Alanine Aminotransferase 40 U/L (10-53); Aspartate Aminotransferase 20 U/L (15-37); Glomerular Filtration Rate 59 mL/min (>89)
[2019-01-21 07:53] LABS: Alkaline Phosphatase 102 U/L (45-117)
[2019-01-21] MEDS: dilTIAZem 30 MG Tablet PO SCH ×2 (08:03→12:36)
[2019-01-21] MEDS: Heparin - SQ 10,000 UNITS/ML Vial SQ SCH ×2 (08:08→20:32)
--- NOTE | 2019-01-21 10:48 | P.PNIM ---
Subjective Interval history: Follow-up acute on chronic diastolic CHF exacerbation/A. fib with RVR/pericardial effusion finding on 2D echo January 21, 2019patient seen and examined, denies any significant shortness of breath or chest pain. Son by the bedside. Discuss about the finding on 2D echo. Patient had increased heart rate with minimal exertion or ambulation. Physical Exam Vital signs: Vital Signs 01/20/19 12:00 01/20/19 16:00 01/20/19 19:30 Temperature 97.4 F L 96 F L Pulse Rate 116 H 107 H Respiratory Rate 20 20 Blood Pressure 137/84 124/86 Pulse Oximetry 94 L 95 93 L 01/20/19 20:00 01/20/19 22:23 01/20/19 23:59 Temperature 96.4 F L 97.3 F L Pulse Rate 115 H 73 91 H Respiratory Rate 18 18 Blood Pressure 129/86 120/69 Pulse Oximetry 95 93 L 01/21/19 00:00 01/21/19 04:00 01/21/19 07:26 Temperature 97.1 F L Pulse Rate 87 100 H Respiratory Rate 18 Blood Pressure 131/77 Pulse Oximetry 96 93 L 01/21/19 08:00 Temperature 96.3 F L Pulse Rate 91 H Respiratory Rate 20 Blood Pressure 120/77 Pulse Oximetry 95 Intake & Output 01/20/19 01/21/19 01/21/19 18:59 06:59 18:59 Intake Total 960 / 960 240 / 240 Balance 960 / 960 240 / 240 Weight 66.5 kg Intake: Oral 960 / 960 240 / 240 Other: # Voids 4 4 Date of Last Bowel Movement 01/20/19 Narrative: GENERAL: NAD SKIN: Warm and dry. HEAD: Atraumatic. Normocephalic. EYES: Pupils equal and round. No scleral icterus. No injection or drainage. ENT: No nasal bleeding or discharge. Mucous membranes pink and moist. NECK: Trachea midline. No JVD. CARDIOVASCULAR: Irregular regular rate and rhythm. RESPIRATORY: No accessory muscle use. Clear to auscultation. Breath sounds equal bilaterally. GASTROINTESTINAL: Abdomen soft, non-tender, nondistended. Hepatic and splenic margins not palpable. MUSCULOSKELETAL: Extremities without clubbing, cyanosis, +Trace edema. No obvious deformities. NEUROLOGICAL: Awake and alert. No obvious cranial nerve deficits. Motor grossly within normal limits. Five out of 5 muscle strength in the arms and legs. Normal speech. PSYCHIATRIC: Appropriate mood and affect; insight and judgment normal. Results Labs CBC & Chem 7: 01/21/19 06:18 01/21/19 06:18 Assessment and Plan Plan 88-year-old female with Acute on chronic diastolic CHF exacerbation Chest x-ray with radiographic findings concerning for congestive heart failure with pulmonary edema Rule out ACS per protocol serial cardiac enzyme and EKGs Status post Lasix IV 20 mg x1 in the 20 mg x1 in ED continue Lasix 20 mg IV daily and resume ARB Strict I's and O's and daily weight 2D echo EF 55-60%, small to moderate pericardial effusion presents Atrial fibrillation with RVR Reports Cardizem IV x1 in ED with resolution Now on Cardizem 30 mg p.o. 3 times daily Patient not currently on any oral anticoagulation likely secondary to fall risk vs prior history of GI bleed Telemetry monitoring Currently on baby aspirin Cardiology consultation pending Pericardial effusion 2D echo noted with finding of small to moderate epicardial effusion Cardiology consultation pending DVT prophylaxis: Heparin Progress Note: Quality VTE Deep Vein Thrombosis/Pulmonary Embolism Present on Admission: No
--- NOTE | 2019-01-21 17:54 | MB ---
cc: Agustin Cooper MD DATE: 01/21/2019 REASON FOR CONSULTATION: Atrial fibrillation and congestive heart failure. HISTORY OF PRESENT ILLNESS: The patient is a very pleasant 88-year-old woman who does have a history of CHF and atrial fibrillation, who presented last year with a similar admission. The patient does have dementia and is a somewhat poor historian. The patient's son is at bedside and explains that she was complaining to her daughter of shortness of breath, was brought to the emergency department, and found to be in rapid atrial fibrillation, given IV Cardizem and mild diuresis. Currently, the patient is resting in bed comfortably, off oxygen. She denies any shortness of breath. She denies any other cardiac symptoms such as chest pain, lightheadedness, dizziness, syncope, but again she is a poor historian. PAST MEDICAL HISTORY: 1. Atrial fibrillation (the son says she is on blood thinners, but cannot recall which). 2. Congestive heart failure. 3. Dementia. CURRENT MEDICATIONS: 1. Aspirin 81 mg daily. 2. Ceftin 250 mg every 12 hours. 3. Cardizem 30 mg orally 4 times daily. 4. Lasix 20 mg IV daily. 5. Valsartan 40 mg daily. ALLERGIES: CODEINE. PHYSICAL EXAMINATION: VITAL SIGNS: Afebrile, heart rate 100, respiratory rate 20, BP 129/69, saturating 94 on room air. GENERAL: Pleasant woman in no distress. NECK: No JVD. LUNGS: Significantly decreased breath sounds at the bases. CARDIOVASCULAR: Irregularly irregular rhythm with a mildly rapid rate. No significant murmurs appreciated. ABDOMEN: Benign. EXTREMITIES: No edema. LABORATORY DATA: INR is 1.1. Sodium 141, potassium 3.8, chloride 105, bicarbonate 20.9, BUN 21, creatinine 0.91, glucose 108. Cardiac enzymes are negative x2. BNP is 513. White count 5.0, hematocrit 40.4, platelets 302. DIAGNOSTIC DATA: Echocardiogram notable for an ejection fraction of 55-60%, a small to moderate pericardial effusion, and a small left pleural effusion. IMPRESSION: Congestive heart failure. RECOMMENDATIONS: The patient appears to have a mild congestive heart failure exacerbation, likely caused by her slightly rapid atrial fibrillation. I will increase her oral Cardizem to 60 every 6 hours. I will also be somewhat more aggressive on her Lasix to attempt to resolve her pleural effusion, as we would like to avoid a thoracentesis. The patient's son will investigate what, if any, anticoagulation she was on. For now, we are holding it anyway in case she requires a thoracentesis. Further recommendations based on her clinical course. Thank you again for the opportunity to participate in this patient's care. MD MYCHAL Coombs/linh , 05:29 PM , 05:34 PM
[2019-01-21] MEDS: dilTIAZem 60 MG Tablet PO SCH ×2 (18:00→20:32)
[2019-01-22] MEDS: Heparin - SQ 10,000 UNITS/ML Vial SQ SCH (08:42)
[2019-01-22] MEDS: dilTIAZem 60 MG Tablet PO SCH ×2 (08:42→13:26)
--- NOTE | 2019-01-22 12:09 | P.PNIM ---
Subjective Interval history: Follow-up acute on chronic diastolic CHF exacerbation/atrial fibrillation with RVR January 22, 2019patient seen and examined, currently on IV Lasix 40 mg twice daily Cardizem 60 mg 4 times daily. Patient denies any significant change in her conditions, however per son's account she was up and ambulated yesterday. Physical Exam Vital signs: Vital Signs 01/21/19 16:00 01/21/19 19:30 01/21/19 19:45 Temperature 96.2 F L Pulse Rate 95 H 122 H Respiratory Rate 20 Blood Pressure 129/69 Pulse Oximetry 94 L 94 L 01/21/19 20:00 01/21/19 23:45 01/22/19 00:00 Temperature 96.7 F L 97.2 F L Pulse Rate 96 H 84 77 Respiratory Rate 18 18 Blood Pressure 129/70 123/61 Pulse Oximetry 94 L 93 L 01/22/19 04:00 01/22/19 08:00 01/22/19 10:40 Temperature 97.6 F 96.9 F L Pulse Rate 73 96 H Respiratory Rate 18 20 Blood Pressure 120/69 135/67 Pulse Oximetry 95 92 L 95 Intake & Output 01/21/19 01/22/19 01/22/19 18:59 06:59 18:59 Intake Total 461 / 461 240 / 240 Balance 461 / 461 240 / 240 Weight 66.2 kg Intake: Oral 461 / 461 240 / 240 Other: # Voids 7 2 Date of Last Bowel Movement 01/20/19 Narrative: GENERAL: NAD SKIN: Warm and dry. HEAD: Atraumatic. Normocephalic. EYES: Pupils equal and round. No scleral icterus. No injection or drainage. ENT: No nasal bleeding or discharge. Mucous membranes pink and moist. NECK: Trachea midline. No JVD. CARDIOVASCULAR: Irregular regular rate and rhythm. RESPIRATORY: No accessory muscle use. Clear to auscultation. Breath sounds equal bilaterally. GASTROINTESTINAL: Abdomen soft, non-tender, nondistended. Hepatic and splenic margins not palpable. MUSCULOSKELETAL: Extremities without clubbing, cyanosis, +Trace edema. No obvious deformities. NEUROLOGICAL: Awake and alert. No obvious cranial nerve deficits. Motor grossly within normal limits. Five out of 5 muscle strength in the arms and legs. Normal speech. PSYCHIATRIC: Appropriate mood and affect; insight and judgment normal. Results Labs CBC & Chem 7: 01/21/19 06:18 01/21/19 06:18 Assessment and Plan Plan 88-year-old female with Acute on chronic diastolic CHF exacerbation Chest x-ray with radiographic findings concerning for congestive heart failure with pulmonary edema Rule out ACS per protocol serial cardiac enzyme and EKGs Status post Lasix IV 20 mg x1 in the 20 mg x1 in ED continue Lasix 40 mg IV BID and continue Cardizem Strict I's and O's and daily weight 2D echo EF 55-60%, small to moderate pericardial effusion presents Atrial fibrillation with RVR Reports Cardizem IV x1 in ED with resolution Now on Cardizem 60 mg p.o. 3 times daily Patient and son are now agreeable for oral anticoagulation. Awaiting for cardiology input Telemetry monitoring Currently on baby aspirin Appreciate input from cardiology Pericardial effusion Pleural effusion 2D echo noted with finding of small to moderate epicardial effusion Continue with IV Lasix DVT prophylaxis: Heparin Progress Note: Quality VTE Deep Vein Thrombosis/Pulmonary Embolism Present on Admission: No
--- NOTE | 2019-01-22 15:55 | P.PNCA ---
Subjective Interval history: Pt doing well, improved breathing, controlled AF Medications and Allergies Active Medications: Active Medications Apixaban (Eliquis) 5 mg PO BID [facility] Aspirin (Ecotrin) 81 mg PO DAILY [facility] Last Admin: 01/22/19 08:42 Dose: 81 mg Cefuroxime Axetil (Ceftin) 250 mg PO Q12HR [facility] Last Admin: 01/22/19 08:42 Dose: 250 mg Diltiazem HCl (Cardizem Cd 24hr) 360 mg PO DAILY [facility] Furosemide (Lasix) 20 mg PO DAILY [facility] Miscellaneous (Pill Splitter) 1 each OTHER UNSCH [facility] Sodium Chloride (Ns Flush) 2 ml IV.FLUSH BID [facility] Last Admin: 01/22/19 08:43 Dose: 2 ml Sodium Chloride (Ns Flush) 2 ml IV.FLUSH UNSCH PRN PRN Reason: FLUSH AFTER USING IV ACCESS Allergies Allergy/AdvReac Type Severity Reaction Status Date / Time codeine Allergy Mild Nausea Verified 01/19/19 15:34 Home Medications Medication Instructions Recorded Confirmed Type cholecalciferol (vitamin D3) 5,000 unit PO DAILY 08/04/18 01/19/19 History cyanocobalamin (vitamin B-12) 5,000 mcg SUBLINGUAL DAILY 08/04/18 01/19/19 History multivitamin 1 tab PO DAILY 08/04/18 01/19/19 History pantoprazole 40 mg PO BID 08/04/18 01/19/19 History valsartan 40 mg PO DAILY 08/04/18 01/19/19 History Physical Exam Vital signs: Vital Signs 01/21/19 16:00 01/21/19 19:30 01/21/19 19:45 Temperature 96.2 F L Pulse Rate 95 H 122 H Respiratory Rate 20 Blood Pressure 129/69 Pulse Oximetry 94 L 94 L 01/21/19 20:00 01/21/19 23:45 01/22/19 00:00 Temperature 96.7 F L 97.2 F L Pulse Rate 96 H 84 77 Respiratory Rate 18 18 Blood Pressure 129/70 123/61 Pulse Oximetry 94 L 93 L 01/22/19 04:00 01/22/19 08:00 01/22/19 10:40 Temperature 97.6 F 96.9 F L Pulse Rate 73 96 H Respiratory Rate 18 20 Blood Pressure 120/69 135/67 Pulse Oximetry 95 92 L 95 01/22/19 12:00 Temperature 97.3 F L Pulse Rate 73 Respiratory Rate 20 Blood Pressure 117/58 L Pulse Oximetry 95 Intake & Output 01/21/19 01/22/19 01/22/19 18:59 06:59 18:59 Intake Total 461 / 461 240 / 240 Balance 461 / 461 240 / 240 Weight 66.2 kg Intake: Oral 461 / 461 240 / 240 Other: # Voids 7 2 Date of Last Bowel Movement 01/20/19 - Constitutional no acute distress - Routine HEENT Exam Head: Present: normocephalic Eye: Present: EOMI ENT: Present: mucous membranes moist - Routine Neck Exam Present: supple - Routine Respiratory Exam Present: CTA bilaterally - Routine Cardiovascular Exam Present: irregular rhythm - Routine Extremities Exam Absent: edema Results 01/21/19 06:18 01/21/19 06:18 Cardiac Enzymes 01/21/19 Range/Units 06:18 AST 20 (15-37) U/L CBC 01/21/19 Range/Units 06:18 WBC 5.0 (4.0-11.0) th/mm3 RBC 4.47 (4.00-5.30) mil/mm3 Hgb 13.2 (11.6-15.3) gm/dL Hct 40.4 (35.0-46.0) % Plt Count 302 (150-450) th/mm3 Neut # (Auto) 3.2 (1.8-7.7) th/mm3 Lymph # (Auto) 1.1 (1.0-4.8) th/mm3 [place] # (Auto) 0.5 (0.0-0.9) th/mm3 Eos # (Auto) 0.2 (0.0-0.4) th/mm3 Baso # (Auto) 0.0 (0.0-0.2) th/mm3 Comprehensive Metabolic Panel 01/21/19 Range/Units 06:18 Sodium 141 (136-145) meq/L Potassium 3.8 (3.5-5.1) meq/L Chloride 105 (98-107) meq/L Carbon Dioxide 28.9 (21.0-32.0) meq/L BUN 21 H (7-18) mg/dL Creatinine 0.91 (0.50-1.00) mg/dL Calcium 8.7 (8.5-10.1) mg/dL AST 20 (15-37) U/L ALT 40 (10-53) U/L Alkaline Phosphatase 102 (45-117) U/L Total Protein 6.0 L (6.4-8.2) g/dL Albumin 2.9 L (3.4-5.0) g/dL Intake and Output 01/22/19 01/22/19 01/22/19 06:59 14:59 22:59 Intake Total 240 / 240 Balance 240 / 240 Intake: Oral 240 / 240 Other: # Voids 2 Weight 66.2 kg Assessment and Plan - Assessment (1) CHF exacerbation Code(s): I50.9 - Heart failure, unspecified Status: Acute Plan: well compensated, now on oral lasix/kcl, nl lvef (2) Atrial fibrillation Code(s): I48.91 - Unspecified atrial fibrillation Status: Acute Plan: rate controlled, changed to long acting diltiazem; started eliquis (risk/ benefits explained in depth to family), full dose 5mg bid due to weight/renal fxn. - Plan Ok to d/c home from cardiac standpoint she can f/u with me in 1-2 weeks.
[2019-01-23] MEDS ORDERED: Furosemide 20 MG Tablet PO SCH (09:00)
[2019-01-23] MEDS ORDERED: dilTIAZem CD 180 MG Capsule PO SCH (09:00)
[2019-01-23 09:23] VITALS: RESP 20
--- NOTE | 2019-01-23 10:07 | P.DCO ---
Diagnosis (1) CHF exacerbation: Status: Acute (2) Atrial fibrillation: Status: Acute Home Health Nursing Order: Signs/symptoms of disease process and Medication education-adverse effect Case Management Consult Case Management Consult-Home Health: Yes I have seen patient Arminda Berumen on 01/23/19. My clinical findings support the need for the requested home health care services because: Patient has SOB I certify that my clinical findings support that this patient is homebound because: Poor cardiac reserve _ (1) CHF exacerbation Qualifiers: Heart failure type: (2) Atrial fibrillation Qualifiers: Atrial fibrillation type:
--- NOTE | 2019-01-23 10:09 | P.PNIM ---
Subjective Interval history: Follow-up acute on chronic diastolic CHF exacerbation/atrial fibrillation with RVR January 23, 2019patient seen and examined, reports significant improvement of shortness of breath and looking forward going home. Son by the bedside. No acute event overnight. Physical Exam Vital signs: Vital Signs 01/22/19 10:40 01/22/19 12:00 01/22/19 16:00 Temperature 97.3 F L 96.9 F L Pulse Rate 73 74 Respiratory Rate 20 20 Blood Pressure 117/58 L 114/70 Pulse Oximetry 95 95 93 L 01/22/19 20:00 01/22/19 20:30 01/23/19 00:00 Temperature 97.8 F 97.8 F Pulse Rate 84 91 H Respiratory Rate 18 18 Blood Pressure 115/63 117/60 Pulse Oximetry 92 L 96 94 L 01/23/19 03:24 01/23/19 04:00 01/23/19 08:00 Temperature 98.8 F 96.2 F L Pulse Rate 74 103 H 83 Respiratory Rate 18 20 Blood Pressure 120/76 121/71 Pulse Oximetry 96 94 L Intake & Output 01/22/19 01/23/19 01/23/19 18:59 06:59 18:59 Intake Total 240 / 240 120 / 120 Output Total 800 / 800 Balance 240 / 240 -680 / -680 Weight 65.5 kg Intake: Oral 240 / 240 120 / 120 Output: Urine 800 / 800 Narrative: GENERAL: NAD SKIN: Warm and dry. HEAD: Atraumatic. Normocephalic. EYES: Pupils equal and round. No scleral icterus. No injection or drainage. ENT: No nasal bleeding or discharge. Mucous membranes pink and moist. NECK: Trachea midline. No JVD. CARDIOVASCULAR: Irregular regular rate and rhythm. RESPIRATORY: No accessory muscle use. Clear to auscultation. Breath sounds equal bilaterally. GASTROINTESTINAL: Abdomen soft, non-tender, nondistended. Hepatic and splenic margins not palpable. MUSCULOSKELETAL: Extremities without clubbing, cyanosis, +Trace edema. No obvious deformities. NEUROLOGICAL: Awake and alert. No obvious cranial nerve deficits. Motor grossly within normal limits. Five out of 5 muscle strength in the arms and legs. Normal speech. PSYCHIATRIC: Appropriate mood and affect; insight and judgment normal. Results Labs CBC & Chem 7: 01/21/19 06:18 01/21/19 06:18 Assessment and Plan (1) CHF exacerbation: Code(s): I50.9 - Heart failure, unspecified Status: Acute (2) Atrial fibrillation: Code(s): I48.91 - Unspecified atrial fibrillation Status: Acute Plan 88-year-old female with Acute on chronic diastolic CHF exacerbation Chest x-ray with radiographic findings concerning for congestive heart failure with pulmonary edema Rule out ACS per protocol serial cardiac enzyme and EKGs Status post Lasix IV 20 mg x1 in the 20 mg x1 in ED s/p Lasix 40 mg IV BID and currently on Lasix 20 mg p.o. daily continue Cardizem Strict I's and O's and daily weight 2D echo EF 55-60%, small to moderate pericardial effusion presents Atrial fibrillation with RVR Reports Cardizem IV x1 in ED with resolution Currently on Cardizem CD 360 mg daily as well as Eliquis 5 mg p.o. twice daily Patient and son are now agreeable for oral anticoagulation. Telemetry monitoring Currently on baby aspirin Appreciate input from cardiology Pericardial effusion Pleural effusion 2D echo noted with finding of small to moderate epicardial effusion Continue with PO Lasix DVT prophylaxis: Heparin Progress Note: Quality VTE Deep Vein Thrombosis/Pulmonary Embolism Present on Admission: No _ (1) CHF exacerbation Qualifiers: Heart failure type: (2) Atrial fibrillation Qualifiers: Atrial fibrillation type:
--- NOTE | 2019-01-23 10:12 | P.DS ---
DS: Providers Date of admission: 01/19/19 17:23 Primary care physician: Murray Okeefe MD Consults: 01/21/19 08:40 Consult to Cardiology Routine Consulting Provider: Agustin Cooper Does the patient have a Psychosocial Rehabilitation Counselor who follows them?: No Preferred [employer] Engineer:: Family Practitioner Physician Reason for Consultation: 88-year-old female admitted secondary to shortness of breath, A. fib with RVR, CHF exacerbation, now with finding of small to moderate pericardial effusion on 2D echo, please evaluate and advise for therapy Notified:: Service Spoke with:: jori Date Notified:: 01/21/19 Time Notified:: 08:47 Ordering Provider: KARIN Brief History from admission: 88-year-old female who past medical history of CHF, presented to the hospital for evaluation of worsening symptoms of shortness of breath times 2 days duration without any chest pain. Also noted bilateral extremity cellulitis. Chest x-ray in the ED revealed radiographic findings concerning for congestive heart failure with pulmonary edema and patient had a BNP of 513. She also presented with elevated heart rate which subsequently improved after Cardizem IV x1 in the ED. Currently patient is normotensive reports some improvement of shortness of breath since admission. DS: Diagnosis Discharge Diagnosis (1) CHF exacerbation: Status: Acute (2) Atrial fibrillation: Status: Acute DS: Summary Patient admitted due to worsening symptoms of the FCR secondary to acute on chronic diastolic CHF exacerbation for which she was started on IV Lasix with monitoring of I's and O's. She also came in with a diagnosis of A. fib with RVR and initially treated with IV Cardizem x1 in ED. She was subsequently started on Cardizem 30 mg 4 times daily which was increased to 60 mg 4 times daily by cardiology was consulted. Eventually patient was switched to Cardizem CD 360 mg daily as a rate remained stable. With significant improvement of shortness of breath patient was switched to p.o. Lasix 20 mg. A 2D echo was obtained. Physical therapy was consulted. She was continued on her treatment for other chronic medical conditions. Prior to discharge, patient's conditions improved and vitals remained stable. Time Spent with Patient Total time spent providing and/or coordinating discharge services: Greater than 30 minutes Quality: VTE Deep Vein Thrombosis/Pulmonary Embolism Present on Admission: No Exam Narrative Exam Narrative: GENERAL: NAD SKIN: Warm and dry. HEAD: Atraumatic. Normocephalic. EYES: Pupils equal and round. No scleral icterus. No injection or drainage. ENT: No nasal bleeding or discharge. Mucous membranes pink and moist. NECK: Trachea midline. No JVD. CARDIOVASCULAR: Regular rate and rhythm. RESPIRATORY: No accessory muscle use. Clear to auscultation. Breath sounds equal bilaterally. GASTROINTESTINAL: Abdomen soft, non-tender, nondistended. Hepatic and splenic margins not palpable. MUSCULOSKELETAL: Extremities without clubbing, cyanosis, or edema. No obvious deformities. NEUROLOGICAL: Awake and alert. No obvious cranial nerve deficits. Motor grossly within normal limits. Five out of 5 muscle strength in the arms and legs. Normal speech. PSYCHIATRIC: Appropriate mood and affect; insight and judgment normal. Results Procedures completed during hospitalization: None Impressions ITS Impressions Chest X-Ray 01/19/19 15:51 CONCLUSION: Radiographic findings concerning for congestive heart failure with pulmonary edema. Likely bilateral small pleural effusions with overlying airspace atelectasis. Findings are new as compared to the prior exam. Discharge Plan Discharge Disposition Patient Disposition: /[facility] Discharge Order Discharge Orders: Discharge Order (Routine); Ordered 01/23/19 Ordered By: Zion Jimenez Physicians Team ED Provider: Elsa Day Primary Care Provider: Murray Okeefe Attending Provider: Zion Jimenez Other Providers: Agustin Cooper Rxs /Orders / Referrals /Forms Prescriptions: New apixaban [Eliquis] 5 mg Tablet 5 mg PO BID Qty: 60 RF: 0 diltiazem HCl [Cardizem CD] 180 mg Capsule,Extended Release 24hr 360 mg PO DAILY Qty: 30 RF: 0 potassium chloride [Klor-Con 10] 10 mEq Tablet Extended Release 10 meq PO DAILY Qty: 30 RF: 0 furosemide 20 mg Tablet 20 mg PO DAILY Qty: 30 RF: 0 aspirin 81 mg Tablet,Delayed Release (Dr/Ec) 81 mg PO DAILY Qty: 30 RF: 0 Continue multivitamin Tablet 1 tab PO DAILY RF: 0 pantoprazole 40 mg Tablet,Delayed Release (Dr/Ec) 40 mg PO BID RF: 0 valsartan 40 mg Tablet 40 mg PO DAILY RF: 0 cyanocobalamin (vitamin B-12) 5,000 mcg Tablet, Sublingual 5,000 mcg SUBLINGUAL DAILY RF: 0 cholecalciferol (vitamin D3) 5,000 unit Capsule 5,000 unit PO DAILY RF: 0 cefuroxime axetil 250 mg Tablet 250 mg PO Q12H Qty: 14 RF: 0 Referrals: Murray Okeefe MD [Primary Care Provider] - See Instructions Agustin Cooper MD [Physician] - 02/06/19 12:00 am Discharge Instructions Patient Printed Instructions: Meal Planning with Diabetes Exchanges (GEN) Discharge Interventions Interventions: Discharge Planning - Case Management Last Done: 01/20/19 09:42 Status ED Status: Left Department
[2019-01-23 14:15] VITALS: BP 119/64; PULSE 90; TEMP 97.1; O2SAT 92
== END 2019-01-23 12:43 | disposition home health service (06) | DRG 292 ==
LOC: PHED 15:25 → PHEDA 17:23 → PH3 19:30
PROVIDERS: ADMIT Hospitalist; ATTEND Hospitalist
DX: Z88.5 Allergy status to narcotic agent; I48.91 Unspecified atrial fibrillation; Z90.49 Acquired absence of other specified parts of digestive tract; L03.818 Cellulitis of other sites; I31.3 Pericardial effusion (noninflammatory); I50.33 Acute on chronic diastolic (congestive) heart failure; F03.90 Unspecified dementia, unspecified severity, without behavioral disturbance, psychotic disturbance, mood disturbance, and anxiety; I11.0 Hypertensive heart disease with heart failure; K29.60 Other gastritis without bleeding; Z87.891 Personal history of nicotine dependence
CPT/HCPCS: 71010; 71045; 80048; 80053; 81001; 82550; 82552; 83520; 83880; 84484; 85025; 85610; 85730; 90774; 93005; 93306; 96374; 97116; 97162; 99291; C8952; J1644; J1940